=== PATIENT | female | born 1950 | race Asian ===

== ENCOUNTER 2016-10-24 09:53 | Outpatient (CLI) | payer MEDICARE ==
[2016-10-24] MEDS ORDERED: XYLOCAINE TOPICAL 4% TP ONE (11:37)
== END 2016-10-24 09:54 | disposition home or self-care (01) ==
LOC: WOUND 09:53
PROVIDERS: ATTEND Internal Medicine
DX: E11.621 Type 2 diabetes mellitus with foot ulcer (principal); L97.411 Non-pressure chronic ulcer of right heel and midfoot limited to breakdown of skin; I10 Essential (primary) hypertension; Z85.3 Personal history of malignant neoplasm of breast; Z86.73 Personal history of transient ischemic attack (TIA), and cerebral infarction without residual deficits; Z90.710 Acquired absence of both cervix and uterus
CPT/HCPCS: 11042; 11045; G0463

== ENCOUNTER 2016-10-31 09:14 | Outpatient (CLI) | payer MEDICARE ==
[2016-10-31] MEDS ORDERED: XYLOCAINE TOPICAL 4% TP ONE ×2 (09:56→10:01)
== END 2016-10-31 09:15 | disposition home or self-care (01) ==
LOC: WOUND 09:14
PROVIDERS: ATTEND Internal Medicine
DX: E11.621 Type 2 diabetes mellitus with foot ulcer (principal); L97.411 Non-pressure chronic ulcer of right heel and midfoot limited to breakdown of skin; I10 Essential (primary) hypertension; Z85.3 Personal history of malignant neoplasm of breast; Z86.73 Personal history of transient ischemic attack (TIA), and cerebral infarction without residual deficits; Z90.710 Acquired absence of both cervix and uterus

== ENCOUNTER 2016-11-07 09:12 | Outpatient (CLI) | payer MEDICARE ==
[2016-11-07] MEDS ORDERED: XYLOCAINE TOPICAL 4% TP ONE ×2 (09:36→09:40)
== END 2016-11-07 09:13 | disposition home or self-care (01) ==
LOC: WOUND 09:12
PROVIDERS: ATTEND Internal Medicine
DX: E11.621 Type 2 diabetes mellitus with foot ulcer (principal); L97.411 Non-pressure chronic ulcer of right heel and midfoot limited to breakdown of skin; I10 Essential (primary) hypertension; Z85.3 Personal history of malignant neoplasm of breast; Z86.73 Personal history of transient ischemic attack (TIA), and cerebral infarction without residual deficits; Z90.710 Acquired absence of both cervix and uterus

== ENCOUNTER 2016-11-14 10:44 | Outpatient (CLI) | payer MEDICARE ==
[2016-11-14] MEDS ORDERED: XYLOCAINE TOPICAL 4% TP ONE ×2 (11:02→11:09)
[2016-11-14] MEDS ORDERED: SILVER NITRATE TP ONE ×2 (12:24→15:38)
== END 2016-11-14 10:45 | disposition home or self-care (01) ==
LOC: WOUND 10:44
PROVIDERS: ATTEND Internal Medicine
DX: E11.621 Type 2 diabetes mellitus with foot ulcer (principal); L97.411 Non-pressure chronic ulcer of right heel and midfoot limited to breakdown of skin; I10 Essential (primary) hypertension; Z90.710 Acquired absence of both cervix and uterus; Z86.73 Personal history of transient ischemic attack (TIA), and cerebral infarction without residual deficits

== ENCOUNTER 2016-11-21 10:37 | Outpatient (CLI) | payer MEDICARE ==
[2016-11-21] MEDS ORDERED: XYLOCAINE TOPICAL 4% TP ONE (11:36)
== END 2016-11-21 10:38 | disposition home or self-care (01) ==
LOC: WOUND 10:37
PROVIDERS: ATTEND Internal Medicine
DX: E11.621 Type 2 diabetes mellitus with foot ulcer (principal); L97.411 Non-pressure chronic ulcer of right heel and midfoot limited to breakdown of skin; E11.69 Type 2 diabetes mellitus with other specified complication; M86.68 Other chronic osteomyelitis, other site; Z85.3 Personal history of malignant neoplasm of breast; Z86.73 Personal history of transient ischemic attack (TIA), and cerebral infarction without residual deficits
CPT/HCPCS: 99215; G0463

== ENCOUNTER 2016-11-21 12:44 | Inpatient (IN) | payer MEDICARE ==
[2016-11-21] MEDS ORDERED: DULCOLAX PR PRN (12:46)
[2016-11-21] MEDS ORDERED: ZOFRAN IV PRN (12:46)
[2016-11-21] MEDS ORDERED: TYLENOL PO PRN (12:46)
[2016-11-21] MEDS ORDERED: MILK OF MAGNESIA PO PRN (12:46)
[2016-11-21] MEDS ORDERED: PROVENTIL IH PRN (12:46)
[2016-11-21] MEDS ORDERED: VANCOMYCIN/NS 1 GM/250 ML 1 GM/250 ML BAG IV ONE (12:49)
--- NOTE | 2016-11-21 12:52 | History and Physical Report ---
History of Present Illness Chief complaint: Right Heel Cellulitis/Osteomyelitis History of present illness: 66 YO Female with HTN, DM, Obesity,CVA with RHP, PVD, Metabolic Syndrome directly admitted to hospitalist service at the request of Dr. Lau from the wound clinic for nonhealing Right heel ulcer, and osteomyelitis. Pt seen and evaluated upon arrival. Pt states that she has been experiencing pain in her right heel for the past 4 weeks, with worsening symptoms over the past week. Pt is unable to bear weight to Right foot without worsening pain. Pt states that the pain is currently 6-8/10. Pt was seen in wound clinic and told that she had an infection. Pt denies fever, chills, CP, Palpitations, NVD, syncope, productive cough, recent ill contacts, trauma, falls. Past History Past Medical History: diabetes, hypertension, PVD, stroke, other (Metabolic syndrome) Past Surgical History: hysterectomy, Other (Lipoma excision, ) Social history: , lives with family. denies: smoking, alcohol abuse, prescription drug abuse Family history: diabetes, hypertension Medications and Allergies Allergies Allergy/AdvReac Type Severity Reaction Status Date / Time codeine Allergy Itching Verified 10/24/16 11:37 Sulfa (Sulfonamide Allergy Swelling Verified 10/24/16 11:37 Antibiotics) Home Medications Medication Instructions Recorded Confirmed Last Taken Type Acetaminophen [Acetaminophen 8 650 mg PO Q4H PRN 11/21/16 11/21/16 Unknown History Hour] Ascorbic Acid [Vitamin C] 500 mg PO BID 11/21/16 11/21/16 11/21/16 10:00 History 500 mg Aspirin [Aspirin BABY CHEW TAB] 81 mg PO DAILY 11/21/16 11/21/16 11/21/16 10:00 History Colchicine [Colcrys] 0.6 mg PO BID 11/21/16 11/21/16 11/21/16 10:00 History Doxycycline [Vibramycin] 100 mg PO Q12HR 11/21/16 11/21/16 11/21/16 10:00 History HYDROcodone/APAP 5-325 5 - 325 mg PO Q6H 11/21/16 11/21/16 Unknown History Insulin Aspart [NovoLOG Flexpen] See Protocol SQ ACHS PRN 11/21/16 11/21/16 Unknown History Insulin Detemir [Levemir Flextouch] 15 units SQ Q12H 11/21/16 11/21/16 11/21/16 10:00 History Linaclotide [Linzess] 290 mcg PO QDAY 11/21/16 11/21/16 11/19/16 History 290 mcg Multivitamin Tab W-MINERAL 1 tab PO DAILY 11/21/16 11/21/16 11/21/16 10:00 History Oxybutynin [Ditropan] 5 mg PO DAILY 11/21/16 11/21/16 11/21/16 10:00 History Sennosides/Docusate Sodium [Senna 2 each PO DAILY 11/21/16 11/21/16 11/21/16 10: 00 History S Tablet] Simethicone [Gas Relief] 80 mg PO TID PRN 11/21/16 11/21/16 Unknown History Torsemide [Demadex] 20 mg PO 3XW 11/21/16 11/21/16 Unknown History Verapamil ER [Calan SR] 1 cap PO DAILY 11/21/16 11/21/16 11/21/16 10:00 History Active Meds: Active Medications Acetaminophen (Tylenol) 650 mg PO Q4H PRN PRN Reason: Pain MILD(1-3)/Fever >100.5/SPENCE Albuterol (Proventil) 2.5 mg IH Q4HRT PRN PRN Reason: Shortness Of Breath Bisacodyl (Dulcolax) 10 mg ID QDAY PRN PRN Reason: Constipation unrelieved by MOM Vancomycin HCl (Vancomycin/Ns 1 Gm/250 Ml) 1 gm in 250 mls @ 167.007 mls/hr IV ONCE ONE PRN Reason: Protocol Stop: 11/21/16 14:18 Magnesium Hydroxide (Milk Of Magnesia) 30 ml PO Q4H PRN PRN Reason: Constipation Ondansetron HCl (Zofran) 4 mg IV Q8H PRN PRN Reason: N/V unrelieved by Reglan Vancomycin HCl (Vancomycin Pharmacy To Dose) 1 each IV PKCONSULT CLAUDIA PRN Reason: Protocol Review of Systems Constitutional: no weight loss, no weight gain, no fever, no chills Ears, nose, mouth and throat: no ear pain, no ear discharge, no tinnitis, no decreased hearing, no nose pain, no nasal congestion, no nasal discharge Breasts: no change in shape, no swelling, no mass Cardiovascular: no chest pain, no orthopnea, no palpitations, no rapid/ irregular heart beat, no edema Respiratory: no cough, no cough with sputum, no excessive sputum, no hemoptysis , no shortness of breath, no dyspnea on exertion Gastrointestinal: no nausea, no vomiting, no diarrhea, no constipation Genitourinary Female: no dysmenorrhea, no pelvic pain, no flank pain, no menorrhagia, no urinary frequency, no stress incontinence Rectal: no pain, no incontinence, no bleeding Musculoskeletal: no neck stiffness, no neck pain Integumentary: foot/leg ulcers, no rash, no pruritis, no redness, no sores, no wounds Neurological: no transient paralysis, no paralysis, no weakness, no parathesias , no numbness, no tingling Psychiatric: no anxiety, no memory loss, no change in sleep habits, no sleep disturbances, no insomnia Endocrine: no cold intolerance, no heat intolerance, no polyphagia, no excessive thirst, no polydipsia, no polyuria, no weight change Hematologic/Lymphatic: no easy bruising, no easy bleeding Allergic/Immunologic: no urticaria, no allergic rhinitis, no wheezing Exam - Constitutional General appearance: Present: mild distress, obese - EENT Eyes: Present: PERRL ENT: hearing intact, clear oral mucosa - Neck Neck: Present: supple, normal ROM - Respiratory Respiratory effort: normal Respiratory: bilateral: CTA - Cardiovascular Heart Sounds: Present: S1 & S2. Absent: rub, click - Extremities Extremity abnormal: ulceration (Right heel ulceration, ), erythema, pulses diminished Peripheral Pulses: abnormal - Abdominal General gastrointestinal: Present: soft, non-tender, non-distended, normal bowel sounds Female genitourinary: Present: normal - Integumentary Integumentary: Present: clear, dry - Musculoskeletal Musculoskeletal: generalized weakness - Psychiatric Psychiatric: appropriate mood/affect, intact judgment & insight - Neurologic Neurologic: CNII-XII intact, focal deficits, no gait normal Results - Labs CBC & Chem 7: 11/21/16 14:31 11/21/16 14:31 Assessment and Plan - Patient Problems (1) Cellulitis of heel, right Current Visit: Yes Status: Acute Plan to address problem: IV abx, CBC, CMP, wound cultures, blood cultures, Surgery consulted for wound care, (2) Osteomyelitis of ankle or foot Current Visit: Yes Status: Acute Plan to address problem: Wound care, IV abx, CT RLE to evaluate. IVF resuscitation (3) PAD (peripheral artery disease) Current Visit: Yes Status: Acute Plan to address problem: Vascular surgery consulted for evaluation and possible angiogram with runoff, after renal function optimized. (4) Metabolic syndrome Current Visit: Yes Status: Acute Plan to address problem: Balanced diet, lipid panel, increased physical activity at discharge (5) HTN (hypertension) Current Visit: Yes Status: Acute Qualifiers: Hypertension type: H Plan to address problem: monitor BP q shift, resume home medication, (6) Diabetes Current Visit: Yes Status: Acute Qualifiers: Diabetes mellitus type: D Diabetes mellitus complication status: D Diabetes mellitus complication detail: D Diabetic retinopathy severity: D Proliferative retinopathy type: P Diabetes mellitus macular edema: D Diabetes mellitus watermaster insulin use: D Laterality: L Chronic kidney disease stage: C Plan to address problem: ADA diet, insulin accu check, hgb A1c (7) ARF (acute renal failure) Current Visit: Yes Status: Acute Qualifiers: Acute renal failure type: A Plan to address problem: IVF resuscitation, monitor uop q shift, repeat bmp, urine electrolytes and renal ultrasound if persistently elevated. (8) DVT prophylaxis Current Visit: Yes Status: Acute
[2016-11-21] MEDS ORDERED: VANCOMYCIN PHARMACY TO DOSE IV SCH (13:00)
[2016-11-21 15:25] LABS: Hemoglobin 9.6 gm/dl (10.1-14.3); Platelet Count 413 K/mm3 (140-440)
[2016-11-21 15:32] LABS: Eosinophils % (Auto) 1.4 % (0.0-4.3); Hematocrit 29.1 % (30.3-42.9); Mean Corpuscular HGB Conc 33 % (30-34); Mean Corpuscular Volume 74 fl (79-97); Red Blood Count 3.95 M/mm3 (3.65-5.03); Red Cell Distribution Width 18.7 % (13.2-15.2); White Blood Count 9.7 K/mm3 (4.5-11.0)
[2016-11-21 15:36] LABS: Albumin 3.7 g/dL (3.9-5); Albumin/Globulin Ratio 0.8 %; Bilirubin,Total 0.4 mg/dL (0.1-1.2); Calcium 9.2 mg/dL (8.4-10.2); Chloride 93.1 mmol/L (98-107); Total Protein 8.2 g/dL (6.3-8.2)
[2016-11-21 15:37] LABS: INR 1.07 (0.87-1.13); Mean Corpuscular Hemoglobin 24 pg (28-32)
[2016-11-21 15:38] LABS: Basophils % (Auto) 0.3 % (0.0-1.8)
[2016-11-21] MEDS ORDERED: VANCOMYCIN 2,000 MG in NACL 0.9% 500 ML 500 ML IV ONE ×2 (16:45→17:00)
[2016-11-21] MEDS: NORCO 5/325 PO PRN (18:49)
[2016-11-21] MEDS ORDERED: NACL 0.45% 1,000 ML IV SCH (19:00)
[2016-11-22] MEDS: NORCO 5/325 PO PRN (07:56)
[2016-11-22] MEDS ORDERED: MYLICON PO PRN (11:26)
[2016-11-22] MEDS ORDERED: INSULIN DETEMIR 15 UNIT SQ SCH (11:30)
[2016-11-22] MEDS ORDERED: LEVEMIR SUB-Q SCH (12:00)
[2016-11-22] MEDS: NOVOLOG SUB-Q SCH ×3 (12:10→22:17)
[2016-11-22] MEDS: BABY ASPIRIN PO SCH (12:14)
[2016-11-22] MEDS: LEVEMIR SUB-Q SCH ×3 (12:20→23:00)
--- NOTE | 2016-11-22 13:14 | Consultation ---
History of Present Illness - Reason for Consult Consult date: 11/22/16 Requesting physician: LYNNE SPEARS - History of Present Illness This patient is a 66-year-old -[place] female that was admitted on 11/21 due to right heel cellulitis/osteomyelitis. The patient states that in July of 2016, she was admitted to a [facility] in preparation for a pilonidal cyst removal. During that hospitalization she was bedbound, and developed a right heel decubitus ulceration. She was discharged home with home health nursing for wound care. She states one of these nurses excised the eschar from her right heel. She subsequently developed a foul odor and drainage. She is now being followed by the outpatient wound care clinic at [facility]. She was evaluated at the clinic. The Hospitalists were contacted, and arrangements were completed for the patient to be directly admitted. The wound care surgeons have been consulted. A vascular surgery consult is now requested to evaluate due to concerns of underlying arterial disease limiting the patient's ability to heal distal wounds. Past History Past Medical History: diabetes, hypertension, PVD, stroke (with residual RUE weakness), other (Metabolic syndrome, Breast Ca) Past Surgical History: hysterectomy (excision of 50lb fibroid tumor), Other ( Recent excision of pilonidal cyst, right shoulder I&D, Multiple right breast surgery due to Breast Ca, some sort of percutaneous lower ext arterial intervention by Dr Vitale at [facility] many years ago.) Social history: , lives with family. denies: smoking, alcohol abuse, prescription drug abuse Family history: cancer, diabetes, hypertension Medications and Allergies Allergies Allergy/AdvReac Type Severity Reaction Status Date / Time codeine Allergy Itching Verified 10/24/16 11:37 Sulfa (Sulfonamide Allergy Swelling Verified 10/24/16 11:37 Antibiotics) Home Medications Medication Instructions Recorded Confirmed Last Taken Type Acetaminophen [Acetaminophen 8 650 mg PO Q4H PRN 11/21/16 11/21/16 Unknown History Hour] Ascorbic Acid [Vitamin C] 500 mg PO BID 11/21/16 11/21/16 11/21/16 10:00 History 500 mg Aspirin [Aspirin BABY CHEW TAB] 81 mg PO DAILY 11/21/16 11/21/16 11/21/16 10:00 History Colchicine [Colcrys] 0.6 mg PO BID 11/21/16 11/21/16 11/21/16 10:00 History Doxycycline [Vibramycin] 100 mg PO Q12HR 11/21/16 11/21/16 11/21/16 10:00 History HYDROcodone/APAP 5-325 5 - 325 mg PO Q6H 11/21/16 11/21/16 Unknown History Insulin Aspart [NovoLOG Flexpen] See Protocol SQ ACHS PRN 11/21/16 11/21/16 Unknown History Insulin Detemir [Levemir Flextouch] 15 units SQ Q12H 11/21/16 11/21/16 11/21/16 10:00 History Linaclotide [Linzess] 290 mcg PO QDAY 11/21/16 11/21/16 11/19/16 History 290 mcg Multivitamin Tab W-MINERAL 1 tab PO DAILY 11/21/16 11/21/16 11/21/16 10:00 History Oxybutynin [Ditropan] 5 mg PO DAILY 11/21/16 11/21/16 11/21/16 10:00 History Sennosides/Docusate Sodium [Senna 2 each PO DAILY 11/21/16 11/21/16 11/21/16 10: 00 History S Tablet] Simethicone [Gas Relief] 80 mg PO TID PRN 11/21/16 11/21/16 Unknown History Torsemide [Demadex] 20 mg PO 3XW 11/21/16 11/21/16 Unknown History Verapamil ER [Calan SR] 1 cap PO DAILY 11/21/16 11/21/16 11/21/16 10:00 History Active Meds: Active Medications Acetaminophen (Tylenol) 650 mg PO Q4H PRN PRN Reason: Pain MILD(1-3)/Fever >100.5/SPENCE Acetaminophen/Hydrocodone Bitart ([place] 5/325) 1 each PO Q6H PRN PRN Reason: Pain, Moderate (4-6) Last Admin: 11/22/16 07:56 Dose: 1 each Albuterol (Proventil) 2.5 mg IH Q4HRT PRN PRN Reason: Shortness Of Breath Ascorbic Acid (Vitamin C) 500 mg PO BID CLAUDIA Aspirin (Baby Aspirin) 81 mg PO DAILY CLAUDIA Last Admin: 11/22/16 12:14 Dose: 81 mg Bisacodyl (Dulcolax) 10 mg ME QDAY PRN PRN Reason: Constipation unrelieved by MOM Colchicine (Colcrys) 0.6 mg PO BID [facility] Vancomycin HCl 1,750 mg/ (Sodium Chloride) 517.5 mls @ 333.333 mls/hr IV Q24H CLAUDIA Sodium Chloride (Nacl 0.45%) 1,000 mls @ 75 mls/hr IV DIRECT CLAUDIA Insulin Aspart (Novolog) 0 units SUB-Q ACHS CLAUDIA PRN Reason: Protocol Last Admin: 11/22/16 12:10 Dose: 6 units Insulin Detemir (Levemir) 15 units SUB-Q Q12H CLAUDIA Last Admin: 11/22/16 12:20 Dose: 15 units Magnesium Hydroxide (Milk Of Magnesia) 30 ml PO Q4H PRN PRN Reason: Constipation Ondansetron HCl (Zofran) 4 mg IV Q8H PRN PRN Reason: N/V unrelieved by Reglan Oxybutynin Chloride (Ditropan) 5 mg PO DAILY [facility] Senna/Docusate Sodium (Senokot S) 2 tab PO DAILY [facility] Simethicone (Mylicon) 80 mg PO TID PRN PRN Reason: Gas pain Vancomycin HCl (Vancomycin Pharmacy To Dose) 1 each IV PKCONSULT CLAUDIA PRN Reason: Protocol Verapamil HCl (Calan Sr) 240 mg PO DAILY [facility] Review of Systems All systems: negative Exam - Constitutional Vitals: Temp Pulse Resp BP Pulse Ox 98.8 F 70 20 150/62 97 11/22/16 08:00 11/22/16 10:00 11/22/16 08:00 11/22/16 08:00 11/22/16 08:52 General appearance: Present: obese - EENT Eyes: Present: EOM intact ENT: hearing intact - Neck Neck: Present: supple - Respiratory Respiratory effort: normal - Extremities Extremities: no ischemia, normal temperature Extremity abnormal: edema (bilat lower ext swelling, ), ulceration (Right posterior lateral heel) - Psychiatric Psychiatric: appropriate mood/affect, intact judgment & insight, cooperative - Neurologic Neurologic: no focal deficits Results - Labs CBC & Chem 7: 11/21/16 14:31 11/21/16 14:31 Labs: Abnormal lab results 11/21/16 11/21/16 11/21/16 Range/Units 14:31 14:31 18:39 Hgb 9.6 L (10.1-14.3) gm/dl Hct 29.1 L (30.3-42.9) % MCV 74 L (79-97) fl MCH 24 L (28-32) pg RDW 18.7 H (13.2-15.2) % Seg Neutrophils % 70.8 H (40.0-70.0) % Sodium 136 L (137-145) mmol/L Potassium 3.0 L (3.6-5.0) mmol/L Chloride 93.1 L (98-107) mmol/L BUN 36 H (7-17) mg/dL Creatinine 1.7 H (0.7-1.2) mg/dL Glucose 128 H (65-100) mg/dL POC Glucose 240 H (70-105) Albumin 3.7 L (3.9-5) g/dL 11/21/16 11/22/16 11/22/16 Range/Units 22:06 07:21 11:23 Hgb (10.1-14.3) gm/dl Hct (30.3-42.9) % MCV (79-97) fl MCH (28-32) pg RDW (13.2-15.2) % Seg Neutrophils % (40.0-70.0) % Sodium (137-145) mmol/L Potassium (3.6-5.0) mmol/L Chloride (98-107) mmol/L BUN (7-17) mg/dL Creatinine (0.7-1.2) mg/dL Glucose (65-100) mg/dL POC Glucose 260 H 230 H 323 H (70-105) Albumin (3.9-5) g/dL Assessment and Plan This pt was admitted via the Outpt wound care center due to a non-healing wound with concerns of infection. A vascular surgery consult has been requested to further eval. The wound has been present at least four months. The pt states this developed as a result of prolong bedrest while hospitalized in July. Despite outpt wound care the wounds have failed to improve. She does not have palpable pedal pulses to either lower ext. She has had previous intervention by Dr Vitale many years ago, but hasn't followed up recently. Will check a lower ext non-invasive arterial duplex with an GEOVANNI. Suspect she will need some sort of intervention to improve her chances of wound healing. Will make the pt npo for a possible arteriogram [place] R[place] Although, her Cr is mildly elevated at 1.7 with an est GFR of 36. She will need pre-op hydration to decrease the risk of contrast nephropathy. Consider nephrology consult in light of ARF and need for lower ext intervention (with iodinated contrast exposure). - Patient Problems (1) Atherosclerosis of [place] arteries of the extremities with ulceration Current Visit: Yes Status: Acute (2) Decubital ulcer Current Visit: Yes Status: Acute Qualifiers: Pressure ulcer location: P Pressure ulcer stage: P Laterality: L (3) Osteomyelitis of ankle or foot Current Visit: Yes Status: Acute (4) Diabetes Current Visit: Yes Status: Acute Qualifiers: Diabetes mellitus type: D Diabetes mellitus complication status: D Diabetes mellitus complication detail: D Diabetic retinopathy severity: D Proliferative retinopathy type: P Diabetes mellitus macular edema: D Diabetes mellitus usp insulin use: D Laterality: L Chronic kidney disease stage: C (5) HTN (hypertension) Current Visit: Yes Status: Acute Qualifiers: Hypertension type: H (6) History of cerebrovascular accident (CVA) with residual deficit Current Visit: Yes Status: Acute
--- NOTE | 2016-11-22 14:30 | Cat Scan Report ---
CT LOWER EXTREMITY RIGHT WITHOUT CONTRAST History: Osteomyelitis. Findings: There is diffuse nonspecific soft tissue swelling. Bony destruction is identified in the posterior lateral right calcaneus. This could represent osteomyelitis. The remaining bones are grossly intact. Osteopenia and degenerative changes are noted. No soft tissue abscess is visualized. Impression: Calcaneal osteomyelitis.
[2016-11-22] MEDS ORDERED: VANCOMYCIN 1,750 MG in NACL 0.9% 500 ML 500 ML IV SCH (16:45)
[2016-11-22] MEDS: VANCOMYCIN 1,750 MG in NACL 0.9% 500 ML 500 ML IV SCH (16:45)
[2016-11-22] MEDS ORDERED: BENADRYL IV ONE ×2 (18:14→22:30)
--- NOTE | 2016-11-22 21:33 | Progress Note ---
Assessment and Plan Assessment and plan: 66 yo obese female with metabolic syndrome, diabetes, hypertension, CVA with residual right-sided hemiparesis admitted at the request of Dr. Lau from wound clinic for nonhealing right heel ulcer with osteomyelitis, now unable to bear weight Right heel nonhealing ulcer/abscess/osteomyelitis In 07/2016 temporary bedbound and developed right heel decubitus ulcer; later a wound care nurse excised the eschar and subsequently developed foul smelling drainage; sent to the hospital from [facility] as unable to bear weight CT LE revealed calcaneal osteomyelitis Started on IV antibiotics Wound surgeon following Vascular surgery also consulted (see below for discussion) PAD History of remote vascular intervention Vascular surgery consulted for likely underlying arterial disease limiting ability to heal distal wounds Scheduled for arterial Doppler, GEOVANNI today and possible angiography tomorrow Acute renal failure or VICTORIA on CKD Likely secondary to vasomotor nephropathy Give IV fluids and monitor closely BUN/creatinine and electrolytes HTN BP controlled on verapamil JR inhibitor indicated as she is diabetic, but avoided due to renal insufficiency DM On long acting insulin along weight SSI based on Accu-Cheks Assessing insulin requirements and making adjustments as needed Old CVA On antiplatelet therapy, but not on statin; discussed with patient and no reason for this; check LFTs, lipid profile and likely start statin Obesity/Metabolic syndrome Counseled regarding importance of losing weight, lifestyle changes and increased physical activity after current acute issues resolved and able to bear weight Gout Continue colchicine DVT prophylaxis History Interval history: for LE arterial doppler, GEOVANNI today, possible angiography tomorrow unable to put weight on right foot Hospitalist Physical - Constitutional Vitals: Temp Pulse Resp BP Pulse Ox 98.8 F 70 20 174/63 99 11/22/16 20:17 11/22/16 20:17 11/22/16 20:17 11/22/16 20:17 11/22/16 20:17 General appearance: Present: no acute distress, obese - EENT Eyes: Present: PERRL, EOM intact. Absent: scleral icterus, conjunctival injection - Neck Neck: Present: supple. Absent: enlarged thyroid, masses or JVD - Respiratory Respiratory effort: normal Respiratory: bilateral: CTA, negative: rhonchi, wheezing - Cardiovascular Rhythm: regular Heart Sounds: Present: S1 & S2. Absent: systolic murmur - Extremities Extremities: no ischemia, abnormal (R foot dressing in place) - Abdominal General gastrointestinal: soft, non-tender, non-distended, normal bowel sounds - Psychiatric Psychiatric: cooperative - Neurologic Neurologic: CNII-XII intact, no focal deficits Results - Labs CBC & Chem 7: 11/21/16 14:31 11/24/16 10:00 Labs: Laboratory Last Values WBC 9.7 K/mm3 (4.5-11.0) 11/21/16 14:31 RBC 3.95 M/mm3 (3.65-5.03) 11/21/16 14:31 Hgb 9.6 gm/dl (10.1-14.3) L 11/21/16 14:31 Hct 29.1 % (30.3-42.9) L 11/21/16 14:31 MCV 74 fl (79-97) L 11/21/16 14:31 MCH 24 pg (28-32) L 11/21/16 14:31 MCHC 33 % (30-34) 11/21/16 14:31 RDW 18.7 % (13.2-15.2) H 11/21/16 14:31 Plt Count 413 K/mm3 (140-440) 11/21/16 14:31 Lymph % (Auto) 20.5 % (13.4-35.0) 11/21/16 14:31 [place] % (Auto) 7.0 % (0.0-7.3) 11/21/16 14:31 Eos % (Auto) 1.4 % (0.0-4.3) 11/21/16 14:31 Baso % (Auto) 0.3 % (0.0-1.8) 11/21/16 14:31 Lymph # 2.0 K/mm3 (1.2-5.4) 11/21/16 14:31 [place] # 0.7 K/mm3 (0.0-0.8) 11/21/16 14:31 Eos # 0.1 K/mm3 (0.0-0.4) 11/21/16 14:31 Baso # 0.0 K/mm3 (0.0-0.1) 11/21/16 14:31 Seg Neutrophils % 70.8 % (40.0-70.0) H 11/21/16 14:31 Seg Neutrophils # 6.8 K/mm3 (1.8-7.7) 11/21/16 14:31 PT 14.4 Sec. (12.2-14.9) 11/21/16 14:31 INR 1.07 (0.87-1.13) 11/21/16 14:31 Sodium 136 mmol/L (137-145) L 11/21/16 14:31 Potassium 3.0 mmol/L (3.6-5.0) L 11/21/16 14:31 Chloride 93.1 mmol/L (98-107) L 11/21/16 14:31 Carbon Dioxide 30 mmol/L (22-30) 11/21/16 14:31 Anion Gap 16 mmol/L 11/21/16 14:31 BUN 36 mg/dL (7-17) H 11/21/16 14:31 Creatinine 1.7 mg/dL (0.7-1.2) H 11/21/16 14:31 Estimated GFR 36 ml/min 11/21/16 14:31 BUN/Creatinine Ratio 21 % 11/21/16 14:31 Glucose 128 mg/dL (65-100) H 11/21/16 14:31 POC Glucose 313 (70-105) H 11/22/16 16:31 Calcium 9.2 mg/dL (8.4-10.2) 11/21/16 14:31 Total Bilirubin 0.40 mg/dL (0.1-1.2) 11/21/16 14:31 AST 11 units/L (5-40) 11/21/16 14:31 ALT 11 units/L (7-56) 11/21/16 14:31 Alkaline Phosphatase 68 units/L (35-129) 11/21/16 14:31 Total Protein 8.2 g/dL (6.3-8.2) 11/21/16 14:31 Albumin 3.7 g/dL (3.9-5) L 11/21/16 14:31 Albumin/Globulin Ratio 0.8 % 11/21/16 14:31
[2016-11-22] MEDS: COLCRYS PO SCH (22:17)
[2016-11-22] MEDS: VITAMIN C PO SCH (22:17)
[2016-11-23] MEDS: NOVOLOG SUB-Q SCH ×4 (07:15→22:56)
--- NOTE | 2016-11-23 08:01 | Vascular Lab Report ---
LOWER EXTREMITY ARTERIAL DUPLEX: REASON FOR EXAM: Peripheral arterial disease. COMMENTS ON THE RIGHT: Biphasic waveforms are seen proximally. Monophasic waveforms are seen distally. Increased flow velocity noted at mid SFA. Diffuse plaque identified throughout the vessels.. Findings are consistent with abnormal perfusion. Findings are inconsistent with the ability to heal distal wounds. COMMENTS ON THE LEFT: Biphasic waveforms are seen proximally. Monophasic waveforms are seen distally. Elevated velocity noted in the popliteal artery. Mild to moderate plaque identified throughout the vessels.. Findings are consistent with abnormal perfusion. Findings are inconsistent with the ability to heal distal wounds. IMPRESSION: RIGHT: Mid SFA stenosis. LEFT:Popliteal artery stenosis.
--- NOTE | 2016-11-23 08:02 | Vascular Lab Report ---
LOWER EXTREMITY ARTERIAL PHYSIOLOGIC STUDY: REASON FOR EXAM: Peripheral arterial disease. COMMENTS ON THE RIGHT: Ankle brachial index is 0.42. This value is abnormal. Toe brachial index is zero. This value is abnormal. Wound healing is unlikely. Pulse volume recording at the level of the ankle is abnormal. Exercise testing was not done. COMMENTS ON THE LEFT: Ankle brachial index is 0.93. This value is abnormal. Toe brachial index is 0.73. This value is normal. Wound healing is likely. Pulse volume recording at the level of the ankle is normal. Exercise testing was not done. IMPRESSION: RIGHT: Severe peripheral vascular disease LEFT:Mild peripheral vascular disease
--- NOTE | 2016-11-23 10:15 | Consultation ---
History of Present Illness - Reason for Consult Consult date: 11/23/16 Past History Past Medical History: diabetes, hypertension, PVD, stroke (with residual RUE weakness), other (Metabolic syndrome, Breast Ca) Past Surgical History: hysterectomy (excision of 50lb fibroid tumor), Other ( Recent excision of pilonidal cyst, right shoulder I&D, Multiple right breast surgery due to Breast Ca, some sort of percutaneous lower ext arterial intervention by Dr Vitale at [facility] many years ago.) Social history: , lives with family. denies: smoking, alcohol abuse, prescription drug abuse Family history: cancer, diabetes, hypertension Medications and Allergies Allergies Allergy/AdvReac Type Severity Reaction Status Date / Time codeine Allergy Itching Verified 10/24/16 11:37 Sulfa (Sulfonamide Allergy Swelling Verified 10/24/16 11:37 Antibiotics) Home Medications Medication Instructions Recorded Confirmed Last Taken Type Acetaminophen [Acetaminophen 8 650 mg PO Q4H PRN 11/21/16 11/21/16 Unknown History Hour] Ascorbic Acid [Vitamin C] 500 mg PO BID 11/21/16 11/21/16 11/21/16 10:00 History 500 mg Aspirin [Aspirin BABY CHEW TAB] 81 mg PO DAILY 11/21/16 11/21/16 11/21/16 10:00 History Colchicine [Colcrys] 0.6 mg PO BID 11/21/16 11/21/16 11/21/16 10:00 History Doxycycline [Vibramycin] 100 mg PO Q12HR 11/21/16 11/21/16 11/21/16 10:00 History HYDROcodone/APAP 5-325 5 - 325 mg PO Q6H 11/21/16 11/21/16 Unknown History Insulin Aspart [NovoLOG Flexpen] See Protocol SQ ACHS PRN 11/21/16 11/21/16 Unknown History Insulin Detemir [Levemir Flextouch] 15 units SQ Q12H 11/21/16 11/21/16 11/21/16 10:00 History Linaclotide [Linzess] 290 mcg PO QDAY 11/21/16 11/21/16 11/19/16 History 290 mcg Multivitamin Tab W-MINERAL 1 tab PO DAILY 11/21/16 11/21/16 11/21/16 10:00 History Oxybutynin [Ditropan] 5 mg PO DAILY 11/21/16 11/21/16 11/21/16 10:00 History Sennosides/Docusate Sodium [Senna 2 each PO DAILY 11/21/16 11/21/16 11/21/16 10: 00 History S Tablet] Simethicone [Gas Relief] 80 mg PO TID PRN 11/21/16 11/21/16 Unknown History Torsemide [Demadex] 20 mg PO 3XW 11/21/16 11/21/16 Unknown History Verapamil ER [Calan SR] 1 cap PO DAILY 11/21/16 11/21/16 11/21/16 10:00 History Active Meds: Active Medications Acetaminophen (Tylenol) 650 mg PO Q4H PRN PRN Reason: Pain MILD(1-3)/Fever >100.5/SPENCE Acetaminophen/Hydrocodone Bitart ([place] 5/325) 1 each PO Q6H PRN PRN Reason: Pain, Moderate (4-6) Last Admin: 11/22/16 07:56 Dose: 1 each Albuterol (Proventil) 2.5 mg IH Q4HRT PRN PRN Reason: Shortness Of Breath Ascorbic Acid (Vitamin C) 500 mg PO BID [facility] Last Admin: 11/22/16 22:17 Dose: 500 mg Aspirin (Baby Aspirin) 81 mg PO DAILY [facility] Last Admin: 11/22/16 12:14 Dose: 81 mg Bisacodyl (Dulcolax) 10 mg CA QDAY PRN PRN Reason: Constipation unrelieved by MOM Colchicine (Colcrys) 0.6 mg PO BID [facility] Last Admin: 11/22/16 22:17 Dose: 0.6 mg Vancomycin HCl 1,750 mg/ (Sodium Chloride) 517.5 mls @ 333.333 mls/hr IV Q24H [facility] Last Admin: 11/22/16 16:45 Dose: 333.333 mls/hr Sodium Chloride (Nacl 0.45%) 1,000 mls @ 75 mls/hr IV DIRECT CLAUDIA Insulin Aspart (Novolog) 0 units SUB-Q ACHS CLAUDIA PRN Reason: Protocol Last Admin: 11/23/16 07:15 Dose: Not Given Insulin Detemir (Levemir) 15 units SUB-Q Q12H [facility] Last Admin: 11/22/16 23:00 Dose: Not Given Magnesium Hydroxide (Milk Of Magnesia) 30 ml PO Q4H PRN PRN Reason: Constipation Last Admin: 11/22/16 17:54 Dose: 30 ml Ondansetron HCl (Zofran) 4 mg IV Q8H PRN PRN Reason: N/V unrelieved by Reglan Oxybutynin Chloride (Ditropan) 5 mg PO DAILY CLAUDIA Senna/Docusate Sodium (Senokot S) 2 tab PO DAILY CLAUDIA Simethicone (Mylicon) 80 mg PO TID PRN PRN Reason: Gas pain Vancomycin HCl (Vancomycin Pharmacy To Dose) 1 each IV PKCONSULT CLAUDIA PRN Reason: Protocol Verapamil HCl (Calan Sr) 240 mg PO DAILY [facility] Exam - Constitutional Vitals: Temp Pulse Resp BP Pulse Ox 98.4 F 72 16 168/70 96 11/23/16 07:12 11/23/16 07:12 11/23/16 07:12 11/23/16 07:12 11/23/16 08:26 Results - Labs CBC & Chem 7: 11/21/16 14:31 11/21/16 14:31 Labs: Abnormal lab results 11/22/16 11/22/16 11/22/16 Range/Units 11:23 16:31 22:05 POC Glucose 323 H 313 H 327 H (70-105) 11/23/16 11/23/16 11/23/16 Range/Units 05:45 05:59 07:17 POC Glucose 218 H 201 H 223 H (70-105)
[2016-11-23 11:55] LABS: Calcium 8.8 mg/dL (8.4-10.2); Chloride 100.9 mmol/L (98-107); Potassium 3.4 mmol/L (3.6-5.0)
[2016-11-23] MEDS: BABY ASPIRIN PO SCH (12:56)
[2016-11-23] MEDS: COLCRYS PO SCH ×2 (12:57→22:55)
[2016-11-23] MEDS: VITAMIN C PO SCH ×2 (12:57→22:56)
[2016-11-23] MEDS ORDERED: HEPARIN/NS 5000 UNIT/500ML(CATH LAB) 1,000 ML IR ONE (13:48)
[2016-11-23] MEDS ORDERED: ANCEF/STERILE WATER 2 GM/20 ML 2 GM/20 ML SYRINGE IV ONE (13:49)
[2016-11-23] MEDS ORDERED: XYLOCAINE 1%/ EPI 1:100,000 INFILTRATI ONE (13:49)
[2016-11-23] MEDS ORDERED: VERSED ONE (13:49)
[2016-11-23] MEDS ORDERED: SUBLIMAZE ONE (13:49)
[2016-11-23] MEDS ORDERED: NACL 0.9% 500 ML 0 ML ONE (13:51)
[2016-11-23] MEDS: HEPARIN 10,000 UNITS/10 ML ONE ×3 (14:37→16:00)
[2016-11-23] MEDS ORDERED: NACL 0.9% 500 ML 1,000 ML ONE (14:54)
[2016-11-23] MEDS ORDERED: CALAN ONE (14:54)
[2016-11-23] MEDS ORDERED: TRIDIL DRIP 50MG/250ML 50 MG/250 ML BOTTLE ONE (14:54)
--- NOTE | 2016-11-23 16:46 | Operative Report ---
Operative Report Operative Report: Procedure: 1. Ultrasound guided puncture of the left common femoral artery. 2. Distal aortography and bilateral common iliac arteriography. 3. Right external iliac, common femoral, and superficial arteriography. 4. Right popliteal arteriography 5. Right infrapopliteal and pedal arteriography. 6. Orbital atherectomy of the right superficial femoral and popliteal arteries 7. Balloon angioplasty of the right superficial femoral and popliteal arteries Date of Procedure: 11/23/2016 History/Indication: This is a 66-year-old female who presents with right heel pain and a nonhealing right heel wound. She has had vascular interventions in the past but is unsure what was done. Noninvasive studies demonstrated regions of significant stenosis in the superficial femoral artery on the right. Physician: Nguyen Peres MD Technique/Procedural Details: The patient was placed in the supine position and prepped and draped in the usual sterile fashion. A timeout was performed. Local anesthetic was administered. Under continuous ultrasound guidance, the left common femoral artery was accessed with a 21-gauge needle. Using a micropuncture technique, a 5 Israeli vascular sheath was placed. An Omni flush catheter was advanced over a Perkins wire to the aortic bifurcation. Aortography was performed. The flush catheter was used to cross the aortic bifurcation and then exchanged for a 4 Israeli vertebral catheter. There is a 4 Israeli vertebral catheter, common and superficial femoral arteriography was performed. The catheter was advanced, and popliteal arteriography was performed. Thereafter, arteriography of the infrapopliteal and pedal vessels was performed. A 65 cm, 6 Israeli pinnacle destination sheath was advanced, with the tip positioned in the common femoral artery. The Perkins wire was exchanged for a V 18 wire, and the 4 Israeli vertebral catheter was exchanged for an 018 [place] Blazer catheter. Repeat arteriography of the superficial femoral artery was performed. Predilation was performed with a 3 mm balloon. Thereafter, the [place] Blazer was used to exchange the V18 wire for a Viperwire. Over this wire, orbital atherectomy of the superficial femoral and popliteal arteries was performed with a mandeep back atherectomy device using a 2 mm solid crown. Post atherectomy angioplasty was performed with a 5 mm balloon in the superficial femoral and popliteal arteries. Repeat arteriography of the right lower extremity was performed. The sheath was removed, and hemostasis was achieved with manual pressure. Sterile dressings were placed, and the patient was transported to the recovery area without immediate complication. Discussion: The distal aorta, both common iliac arteries, and right external iliac arteries are normal in appearance. The right common femoral artery has a mild 10% non- flow-limiting stenosis. There is a mid SFA stent on the right side. There are various regions of stenosis in the right superficial femoral and popliteal artery ranging from 10% to 90%. The most significant narrowing is within the previously placed stent. There is chronic occlusion of the distal popliteal artery, with numerous collateral arteries reconstituting the anterior and posterior tibial arteries. After intervention, the right superficial femoral and popliteal arteries are completely patent. Below the knee, there are numerous additional collateral arteries seen due to improved inflow. The right posterior tibial artery is robust and patent, providing adequate supply to the right foot. Specifically, there is satisfactory vasculature seen in the region of the nonhealing wound in the right heel. I will see the patient in my office in 2 weeks. Should there be adequate improvement in appearance of her right heel wound, I will follow her in 3 months with an ultrasound. However, should her wound not demonstrate good healing, I will try to optimize her infrapopliteal vasculature as an outpatient. Specimen: None EBL: <5 cc
[2016-11-23] MEDS: CALAN SR PO SCH (17:03)
[2016-11-23] MEDS: SENOKOT S PO SCH (17:03)
[2016-11-23] MEDS: DITROPAN PO SCH (17:03)
[2016-11-23] MEDS: LEVEMIR SUB-Q SCH (17:04)
[2016-11-23] MEDS: VANCOMYCIN 1,750 MG in NACL 0.9% 500 ML 500 ML IV SCH (17:10)
--- NOTE | 2016-11-23 19:53 | Progress Note ---
Assessment and Plan Assessment and plan: 66 yo obese female with metabolic syndrome, diabetes, hypertension, CVA with residual right-sided hemiparesis admitted at the request of Dr. Lau from wound clinic for nonhealing right heel ulcer with osteomyelitis, now unable to bear weight Right heel nonhealing ulcer/abscess/osteomyelitis In 07/2016 temporary bedbound and developed right heel decubitus ulcer; later a wound care nurse excised the eschar and subsequently developed foul smelling drainage; sent to the hospital from [facility] as unable to bear weight CT LE revealed calcaneal osteomyelitis Started on IV antibiotics Wound surgeon following Vascular surgery also consulted (see below for discussion) PAD History of remote vascular intervention Vascular surgery consulted for likely underlying arterial disease limiting ability to heal distal wounds Arterial Doppler revealed right mid SFA stenosis and left popliteal artery stenosis GEOVANNI revealed right severe peripheral vascular disease and left mild vascular disease Underwent angiography right valuing angioplasty of the right superficial femoral and popliteal arteries Acute renal failure or VICTORIA on CKD Likely secondary to vasomotor nephropathy Improving with IV fluids Continue hydration and monitor closely BUN/creatinine and electrolytes HTN BP controlled on verapamil JR inhibitor indicated as she is diabetic, but avoided due to renal insufficiency DM On long acting insulin along weight SSI based on Accu-Cheks Assessing insulin requirements and making adjustments as needed Old CVA On antiplatelet therapy, but not on statin; discussed with patient and no reason for this; check LFTs, lipid profile and likely start statin Obesity/Metabolic syndrome Counseled regarding importance of losing weight, lifestyle changes and increased physical activity after current acute issues resolved and able to bear weight Gout Continue colchicine DVT prophylaxis History Interval history: s/pb angiography and revascularization Hospitalist Physical - Constitutional Vitals: Temp Pulse Resp BP Pulse Ox 98.9 F 70 18 179/71 97 11/23/16 18:24 11/23/16 18:24 11/23/16 18:24 11/23/16 18:24 11/23/16 18:24 General appearance: Present: no acute distress, obese - EENT Eyes: Present: PERRL, EOM intact. Absent: scleral icterus, conjunctival injection - Neck Neck: Present: supple, normal ROM. Absent: masses or JVD - Respiratory Respiratory effort: normal Respiratory: bilateral: CTA, negative: rhonchi, wheezing - Cardiovascular Rhythm: regular Heart Sounds: Present: S1 & S2. Absent: systolic murmur - Extremities Extremities: no ischemia, abnormal (right foot dressing in place) Extremity abnormal: pulses diminished - Abdominal General gastrointestinal: soft, non-tender, non-distended, normal bowel sounds - Psychiatric Psychiatric: cooperative - Neurologic Neurologic: CNII-XII intact, no focal deficits Results - Labs CBC & Chem 7: 11/21/16 14:31 11/24/16 10:00 Labs: Laboratory Last Values WBC 9.7 K/mm3 (4.5-11.0) 11/21/16 14:31 RBC 3.95 M/mm3 (3.65-5.03) 11/21/16 14:31 Hgb 9.6 gm/dl (10.1-14.3) L 11/21/16 14:31 Hct 29.1 % (30.3-42.9) L 11/21/16 14:31 MCV 74 fl (79-97) L 11/21/16 14:31 MCH 24 pg (28-32) L 11/21/16 14:31 MCHC 33 % (30-34) 11/21/16 14:31 RDW 18.7 % (13.2-15.2) H 11/21/16 14:31 Plt Count 413 K/mm3 (140-440) 11/21/16 14:31 Lymph % (Auto) 20.5 % (13.4-35.0) 11/21/16 14:31 [place] % (Auto) 7.0 % (0.0-7.3) 11/21/16 14:31 Eos % (Auto) 1.4 % (0.0-4.3) 11/21/16 14:31 Baso % (Auto) 0.3 % (0.0-1.8) 11/21/16 14:31 Lymph # 2.0 K/mm3 (1.2-5.4) 11/21/16 14:31 [place] # 0.7 K/mm3 (0.0-0.8) 11/21/16 14:31 Eos # 0.1 K/mm3 (0.0-0.4) 11/21/16 14:31 Baso # 0.0 K/mm3 (0.0-0.1) 11/21/16 14:31 Seg Neutrophils % 70.8 % (40.0-70.0) H 11/21/16 14:31 Seg Neutrophils # 6.8 K/mm3 (1.8-7.7) 11/21/16 14:31 PT 14.4 Sec. (12.2-14.9) 11/21/16 14:31 INR 1.07 (0.87-1.13) 11/21/16 14:31 Sodium 140 mmol/L (137-145) 11/23/16 10:38 Potassium 3.4 mmol/L (3.6-5.0) L 11/23/16 10:38 Chloride 100.9 mmol/L (98-107) 11/23/16 10:38 Carbon Dioxide 27 mmol/L (22-30) 11/23/16 10:38 Anion Gap 16 mmol/L 11/23/16 10:38 BUN 23 mg/dL (7-17) H 11/23/16 10:38 Creatinine 1.3 mg/dL (0.7-1.2) H 11/23/16 10:38 Estimated GFR 50 ml/min 11/23/16 10:38 BUN/Creatinine Ratio 18 % 11/23/16 10:38 Glucose 186 mg/dL (65-100) H 11/23/16 10:38 POC Glucose 214 (70-105) H 11/23/16 16:52 Calcium 8.8 mg/dL (8.4-10.2) 11/23/16 10:38 Total Bilirubin 0.40 mg/dL (0.1-1.2) 11/21/16 14:31 AST 11 units/L (5-40) 11/21/16 14:31 ALT 11 units/L (7-56) 11/21/16 14:31 Alkaline Phosphatase 68 units/L (35-129) 11/21/16 14:31 Total Protein 8.2 g/dL (6.3-8.2) 11/21/16 14:31 Albumin 3.7 g/dL (3.9-5) L 11/21/16 14:31 Albumin/Globulin Ratio 0.8 % 11/21/16 14:31
[2016-11-23] MEDS: PLAVIX PO SCH (22:55)
[2016-11-24] MEDS: PLAVIX PO SCH (09:20)
[2016-11-24] MEDS: SENOKOT S PO SCH (09:20)
[2016-11-24] MEDS: COLCRYS PO SCH (09:20)
[2016-11-24] MEDS: DITROPAN PO SCH (09:20)
[2016-11-24] MEDS: VITAMIN C PO SCH (09:20)
[2016-11-24] MEDS: BABY ASPIRIN PO SCH (09:20)
[2016-11-24] MEDS: CALAN SR PO SCH (09:20)
[2016-11-24] MEDS: NOVOLOG SUB-Q SCH ×5 (09:21→22:10)
--- NOTE | 2016-11-24 10:05 | Event Note ---
Date: 11/24/16 66 F with multiple medical problems and right heel gangrene. Patient had revascularization of the femoral system, but still has a popliteal artery occlusion and all proximal tibial arteries are occluded. Although this may be treated with a fem-distal bypass, she is morbidly obese and not an optimal surgical candidate. Given her stroke, longterm patency should not be a priority and endovascular treatment is probably best for her. She will require an additional revascularization of her DOCUMENT CLERK, SEKOU, and popliteal artery prior to any surgical debridements unless the eschar transitions from dry to wet. Renal function is an issues and will need to be monitored. Will plan for additional revascularization as an outpatient to limit IV contrast exposure. If situation, may need second revascularization during this admission. If possible, recommend not performing any debridements until revascularization complete.
[2016-11-24 10:53] LABS: Anion Gap 16 mmol/L; BUN/Creatinine Ratio 16; Blood Urea Nitrogen 18 mg/dL (7-17); Calcium 8.6 mg/dL (8.4-10.2); Carbon Dioxide 26 mmol/L (22-30); Chloride 99.4 mmol/L (98-107); Glucose 251 mg/dL (65-100); Potassium 3.5 mmol/L (3.6-5.0); Sodium 138 mmol/L (137-145)
[2016-11-24] MEDS ORDERED: ANCEF/STERILE WATER 2 GM/20 ML 2 GM/20 ML SYRINGE IV NR (11:00)
[2016-11-24] MEDS: LEVEMIR SUB-Q SCH ×3 (12:10→22:10)
--- NOTE | 2016-11-24 14:03 | Query- Renal Failure ---
Paco Clark____Miguelito Date:___11/24/2016 Hot Tar Roofer/LAURA:__Katja Phone#:___[phone] Exercise your independent professional judgment when responding to query. Questions asked do not imply a particular answer is desired or expected. We greatly appreciate your clarification on this issue. Clinical Documentation States: 66 Year old female was admitted on 11/21/2016 for nonhealing right heel ulcer with osteomyelitis, now unable to bear weight. The Hospitalist progress note on 11/23/2016 states "Acute renal failure or VICTORIA on CKD." Clinical Findings Show: 11/21 11/23 11/24 Creatinine 1.7 1.3 1.1 Please clarify if you mean: Acute Renal Failure with or due to: [ ] Tubular Necrosis [ ] Medullary Necrosis [ ] Vasomotor Nephropathy [ ] Shock Kidney [ ] Tubular Nephrosis [ ] Renal Tubular Stasis [ ] Cortical Necrosis [ ] Acute Renal Failure (unspecified) [ ] Lower Tubular Nephrosis [ ] Other: [ ] Not Applicable Present on Admission: [ ] Yes (Y) [ ] Clinically undeterminable (W) [ ] No (N) Please also document response in your Progress Notes and/or Discharge Summary and indicate if the condition was present on admission. MTDD
[2016-11-24] MEDS: NORCO 5/325 PO PRN (18:14)
[2016-11-24] MEDS: VANCOMYCIN 1,750 MG in NACL 0.9% 500 ML 500 ML IV SCH (18:16)
[2016-11-24] MEDS ORDERED: BENADRYL ONE (18:24)
[2016-11-24] MEDS: BENADRYL IV PRN (18:35)
--- NOTE | 2016-11-24 19:44 | Progress Note ---
Assessment and Plan Assessment and plan: 66 yo obese female with metabolic syndrome, diabetes, hypertension, CVA with residual right-sided hemiparesis admitted at the request of Dr. Lau from wound clinic for nonhealing right heel ulcer with osteomyelitis, now unable to bear weight Right heel nonhealing ulcer/abscess/osteomyelitis In 07/2016 temporary bedbound and developed right heel decubitus ulcer; later a wound care nurse excised the eschar and subsequently developed foul smelling drainage; sent to the hospital from [facility] as unable to bear weight CT LE revealed calcaneal osteomyelitis Continue IV antibiotics Wound surgeon following Vascular surgery also consulted (see below for discussion) PAD History of remote vascular intervention Vascular surgery consulted for likely underlying arterial disease limiting ability to heal distal wounds Arterial Doppler revealed right mid SFA stenosis and left popliteal artery stenosis GEOVANNI revealed right severe peripheral vascular disease and left mild vascular disease Underwent angiography and right balloon angioplasty of the right superficial femoral and popliteal arteries Needs additional vascular procedure and vascular surgery recommended no surgical debridement unless the eschar transitions from dry to wet Acute renal failure or VICTORIA on CKD Likely secondary to vasomotor nephropathy Received IV fluids and creatinine back to normal limits Continue to closely monitor BUN/creatinine and electrolytes HTN BP controlled on verapamil JR inhibitor indicated as she is diabetic, but avoided due to renal insufficiency DM On long acting insulin along with SSI based on Accu-Cheks BS elevated, will increase Levemir dose Assessing insulin requirements and making further adjustments as good diabetes control is imperative Old CVA With residual right-sided weakness On antiplatelet therapy, but not on statin; discussed with patient and no reason for this; check LFTs, lipid profile and likely start statin Obesity/Metabolic syndrome Counseled regarding importance of losing weight, lifestyle changes and increased physical activity after foot wound healed and able to bear weight Gout Continue colchicine DVT prophylaxis History Interval history: s/p angiography and revascularization 11/23; doing well, no complaints Hospitalist Physical - Constitutional Vitals: Temp Pulse Resp BP Pulse Ox 99 F 75 20 136/53 98 11/24/16 14:00 11/24/16 14:00 11/24/16 14:00 11/24/16 14:00 11/24/16 14:00 General appearance: Present: no acute distress, obese - EENT Eyes: Present: PERRL, EOM intact - Neck Neck: Present: supple, normal ROM. Absent: masses or JVD - Respiratory Respiratory effort: normal Respiratory: bilateral: CTA, negative: rhonchi, wheezing - Cardiovascular Rhythm: regular Heart Sounds: Present: S1 & S2. Absent: systolic murmur - Extremities Extremities: no ischemia Extremity abnormal: pulses diminished, other (right foot dressing in place) - Abdominal General gastrointestinal: soft, non-tender, non-distended, normal bowel sounds - Psychiatric Psychiatric: cooperative - Neurologic Neurologic: CNII-XII intact, no focal deficits Results - Labs CBC & Chem 7: 11/21/16 14:31 11/24/16 10:00 Labs: Laboratory Last Values WBC 9.7 K/mm3 (4.5-11.0) 11/21/16 14:31 RBC 3.95 M/mm3 (3.65-5.03) 11/21/16 14:31 Hgb 9.6 gm/dl (10.1-14.3) L 11/21/16 14:31 Hct 29.1 % (30.3-42.9) L 11/21/16 14:31 MCV 74 fl (79-97) L 11/21/16 14:31 MCH 24 pg (28-32) L 11/21/16 14:31 MCHC 33 % (30-34) 11/21/16 14:31 RDW 18.7 % (13.2-15.2) H 11/21/16 14:31 Plt Count 413 K/mm3 (140-440) 11/21/16 14:31 Lymph % (Auto) 20.5 % (13.4-35.0) 11/21/16 14:31 [place] % (Auto) 7.0 % (0.0-7.3) 11/21/16 14:31 Eos % (Auto) 1.4 % (0.0-4.3) 11/21/16 14:31 Baso % (Auto) 0.3 % (0.0-1.8) 11/21/16 14:31 Lymph # 2.0 K/mm3 (1.2-5.4) 11/21/16 14:31 [place] # 0.7 K/mm3 (0.0-0.8) 11/21/16 14:31 Eos # 0.1 K/mm3 (0.0-0.4) 11/21/16 14:31 Baso # 0.0 K/mm3 (0.0-0.1) 11/21/16 14:31 Seg Neutrophils % 70.8 % (40.0-70.0) H 11/21/16 14:31 Seg Neutrophils # 6.8 K/mm3 (1.8-7.7) 11/21/16 14:31 PT 14.4 Sec. (12.2-14.9) 11/21/16 14:31 INR 1.07 (0.87-1.13) 11/21/16 14:31 Sodium 138 mmol/L (137-145) 11/24/16 10:00 Potassium 3.5 mmol/L (3.6-5.0) L 11/24/16 10:00 Chloride 99.4 mmol/L (98-107) 11/24/16 10:00 Carbon Dioxide 26 mmol/L (22-30) 11/24/16 10:00 Anion Gap 16 mmol/L 11/24/16 10:00 BUN 18 mg/dL (7-17) H 11/24/16 10:00 Creatinine 1.1 mg/dL (0.7-1.2) 11/24/16 10:00 Estimated GFR > 60 ml/min 11/24/16 10:00 BUN/Creatinine Ratio 16 % 11/24/16 10:00 Glucose 251 mg/dL (65-100) H 11/24/16 10:00 POC Glucose 215 (70-105) H 11/24/16 16:20 Calcium 8.6 mg/dL (8.4-10.2) 11/24/16 10:00 Total Bilirubin 0.40 mg/dL (0.1-1.2) 11/21/16 14:31 AST 11 units/L (5-40) 11/21/16 14:31 ALT 11 units/L (7-56) 11/21/16 14:31 Alkaline Phosphatase 68 units/L (35-129) 11/21/16 14:31 Total Protein 8.2 g/dL (6.3-8.2) 11/21/16 14:31 Albumin 3.7 g/dL (3.9-5) L 11/21/16 14:31 Albumin/Globulin Ratio 0.8 % 11/21/16 14:31
[2016-11-24] MEDS: ZOSYN/NS 3.375GM/50ML 3.375 GM/50 ML BAG IV SCH (22:00)
[2016-11-25] MEDS: VITAMIN C PO SCH ×3 (00:02→21:39)
[2016-11-25] MEDS: COLCRYS PO SCH ×3 (04:20→21:39)
[2016-11-25] MEDS: NOVOLOG SUB-Q SCH ×3 (08:37→17:48)
[2016-11-25] MEDS: PLAVIX PO SCH (09:11)
[2016-11-25] MEDS: CALAN SR PO SCH (09:12)
[2016-11-25] MEDS: BABY ASPIRIN PO SCH (09:12)
[2016-11-25] MEDS: SENOKOT S PO SCH (09:12)
[2016-11-25] MEDS: DITROPAN PO SCH (09:12)
--- NOTE | 2016-11-25 09:35 | Progress Note ---
Assessment and Plan Assessment and plan: 66 yo obese female with metabolic syndrome, diabetes, hypertension, CVA with residual right-sided hemiparesis admitted at the request of Dr. Lau from wound clinic for nonhealing right heel ulcer with osteomyelitis, now unable to bear weight Right heel nonhealing ulcer/abscess/osteomyelitis In 07/2016 temporary bedbound and developed right heel decubitus ulcer; later a wound care nurse excised the eschar and subsequently developed foul smelling drainage; sent to the hospital from [facility] as unable to bear weight CT LE revealed calcaneal osteomyelitis Continue IV antibiotics Wound surgeon following Vascular surgery also consulted (see below for discussion) PAD History of remote vascular intervention Vascular Surgery consulted for likely underlying arterial disease limiting ability to heal distal wounds Arterial Doppler revealed right mid SFA stenosis and left popliteal artery stenosis GEOVANNI revealed right severe peripheral vascular disease and left mild vascular disease Underwent angiography and right balloon angioplasty of the right superficial femoral and popliteal arteries Needs additional vascular procedure and Vascular Surgery recommended no surgical debridement unless the eschar transitions from dry to wet Discussed with Vascular Surgery and given her current condition and home situation, it will be in her benefit to have both, the revascularization and the surgical debridement, while hospitalized; planning for intervention on Monday11/28/16 Vascular Surgery management greatly appreciated Acute renal failure or VICTORIA on CKD Likely secondary to vasomotor nephropathy Received IV fluids and creatinine back to normal limits Continue to closely monitor BUN/creatinine and electrolytes HTN BP controlled on verapamil JR inhibitor indicated as she is diabetic, but avoided due to renal insufficiency DM On long acting insulin along with SSI based on Accu-Cheks Levemir dose increased BS better controlled, but at goal yet Check A1C Assessing insulin requirements and making further adjustments as good diabetes control is imperative Old CVA With residual right-sided weakness On antiplatelet therapy, but not on statin; discussed with patient and no reason for this; LFTs wnl, check lipid profile and likely start statin Obesity/Metabolic syndrome Counseled regarding importance of losing weight, lifestyle changes and increased physical activity after foot wound healed and able to bear weight Gout Continue colchicine DVT prophylaxis History Interval history: s/p angiography and revascularization 11/23; doing well, no complaints Hospitalist Physical - Constitutional Vitals: Temp Pulse Resp BP Pulse Ox 98.3 F 72 18 153/66 99 11/25/16 08:00 11/25/16 09:12 11/25/16 08:00 11/25/16 09:12 11/25/16 08:00 General appearance: Present: no acute distress, obese - EENT Eyes: Present: PERRL, EOM intact - Neck Neck: Present: supple, normal ROM. Absent: masses or JVD - Respiratory Respiratory effort: normal Respiratory: bilateral: CTA, negative: rhonchi, wheezing - Cardiovascular Rhythm: regular Heart Sounds: Present: S1 & S2. Absent: systolic murmur - Extremities Extremities: no ischemia Extremity abnormal: pulses diminished, other (right foot dressing in place) - Abdominal General gastrointestinal: soft, non-tender, non-distended, normal bowel sounds - Psychiatric Psychiatric: cooperative - Neurologic Neurologic: CNII-XII intact, no focal deficits Results - Labs CBC & Chem 7: 11/21/16 14:31 11/24/16 10:00 Labs: Laboratory Last Values WBC 9.7 K/mm3 (4.5-11.0) 11/21/16 14:31 RBC 3.95 M/mm3 (3.65-5.03) 11/21/16 14:31 Hgb 9.6 gm/dl (10.1-14.3) L 11/21/16 14:31 Hct 29.1 % (30.3-42.9) L 11/21/16 14:31 MCV 74 fl (79-97) L 11/21/16 14:31 MCH 24 pg (28-32) L 11/21/16 14:31 MCHC 33 % (30-34) 11/21/16 14:31 RDW 18.7 % (13.2-15.2) H 11/21/16 14:31 Plt Count 413 K/mm3 (140-440) 11/21/16 14:31 Lymph % (Auto) 20.5 % (13.4-35.0) 11/21/16 14:31 [place] % (Auto) 7.0 % (0.0-7.3) 11/21/16 14:31 Eos % (Auto) 1.4 % (0.0-4.3) 11/21/16 14:31 Baso % (Auto) 0.3 % (0.0-1.8) 11/21/16 14:31 Lymph # 2.0 K/mm3 (1.2-5.4) 11/21/16 14:31 [place] # 0.7 K/mm3 (0.0-0.8) 11/21/16 14:31 Eos # 0.1 K/mm3 (0.0-0.4) 11/21/16 14:31 Baso # 0.0 K/mm3 (0.0-0.1) 11/21/16 14:31 Seg Neutrophils % 70.8 % (40.0-70.0) H 11/21/16 14:31 Seg Neutrophils # 6.8 K/mm3 (1.8-7.7) 11/21/16 14:31 PT 14.4 Sec. (12.2-14.9) 11/21/16 14:31 INR 1.07 (0.87-1.13) 11/21/16 14:31 Sodium 138 mmol/L (137-145) 11/24/16 10:00 Potassium 3.5 mmol/L (3.6-5.0) L 11/24/16 10:00 Chloride 99.4 mmol/L (98-107) 11/24/16 10:00 Carbon Dioxide 26 mmol/L (22-30) 11/24/16 10:00 Anion Gap 16 mmol/L 11/24/16 10:00 BUN 18 mg/dL (7-17) H 11/24/16 10:00 Creatinine 1.1 mg/dL (0.7-1.2) 11/24/16 10:00 Estimated GFR > 60 ml/min 11/24/16 10:00 BUN/Creatinine Ratio 16 % 11/24/16 10:00 Glucose 251 mg/dL (65-100) H 11/24/16 10:00 POC Glucose 138 (70-105) H 11/25/16 07:45 Calcium 8.6 mg/dL (8.4-10.2) 11/24/16 10:00 Total Bilirubin 0.40 mg/dL (0.1-1.2) 11/21/16 14:31 AST 11 units/L (5-40) 11/21/16 14:31 ALT 11 units/L (7-56) 11/21/16 14:31 Alkaline Phosphatase 68 units/L (35-129) 11/21/16 14:31 Total Protein 8.2 g/dL (6.3-8.2) 11/21/16 14:31 Albumin 3.7 g/dL (3.9-5) L 11/21/16 14:31 Albumin/Globulin Ratio 0.8 % 11/21/16 14:31
[2016-11-25] MEDS: LEVEMIR SUB-Q SCH ×2 (12:21→21:41)
--- NOTE | 2016-11-25 13:22 | Progress Note ---
Assessment and Plan Pt presented with ulceration to the right heel, and ARF. Pt's RLE showed monophasic bloodflow. She is s/p revascularization to her R SFA, but has tibial artery disease. She will need additional intervention to improve her chances of distal wound healing. Post-operatively her Cr has improved. Contacted by the hospitalist, who discussed functional limitations of the pt, and she requested we intervene prior to d/c. Discussed with the pt who has reluctantly agreed. Will schedule for early next week as the irrigation laborer schedule will allow. - Patient Problems (1) Atherosclerosis of [place] arteries of the extremities with ulceration Current Visit: Yes Status: Acute (2) Decubital ulcer Current Visit: Yes Status: Acute Qualifiers: Pressure ulcer location: P Pressure ulcer stage: P Laterality: L (3) Osteomyelitis of ankle or foot Current Visit: Yes Status: Acute (4) Diabetes Current Visit: Yes Status: Acute Qualifiers: Diabetes mellitus type: D Diabetes mellitus complication status: D Diabetes mellitus complication detail: D Diabetic retinopathy severity: D Proliferative retinopathy type: P Diabetes mellitus macular edema: D Diabetes mellitus long-term insulin use: D Laterality: L Chronic kidney disease stage: C (5) HTN (hypertension) Current Visit: Yes Status: Acute Qualifiers: Hypertension type: H (6) History of cerebrovascular accident (CVA) with residual deficit Current Visit: Yes Status: Acute Subjective Date of service: 11/25/16 Interval history: Pt awake, pt very frustrated with her nursing care. Denies new issue from her leg or post procedure. Objective - Constitutional Vitals: Vital Signs - 12hr 11/25/16 11/25/16 11/25/16 05:29 08:00 09:12 Temperature 97.8 F 98.3 F Pulse Rate 78 72 72 Respiratory 20 18 Rate Blood Pressure 153/66 Blood Pressure 147/68 153/66 [Left] O2 Sat by Pulse 100 99 Oximetry General appearance: Present: no acute distress - EENT Eyes: EOM intact ENT: hearing intact - Respiratory Respiratory effort: normal Extremities: abnormal (red rash to the rue medial elbow. This appears to be a yeast infection.) Extremity abnormal: ulceration (RLE wounds bandaged.) - Neurologic Neurologic: no focal deficits - Psychiatric Psychiatric: appropriate mood/affect, intact judgment & insight, cooperative - Labs CBC & Chem 7: 11/21/16 14:31 11/24/16 10:00 Labs: Abnormal lab results 11/24/16 11/24/16 11/25/16 Range/Units 16:20 21:59 07:45 POC Glucose 215 H 183 H 138 H (70-105) 11/25/16 Range/Units 12:15 POC Glucose 215 H (70-105)
[2016-11-25] MEDS: LOTRIMIN TP SCH ×2 (16:24→21:24)
[2016-11-25] MEDS: ZOSYN/NS 3.375GM/50ML 3.375 GM/50 ML BAG IV SCH ×2 (16:24→16:26)
[2016-11-25] MEDS: HEPARIN SUB-Q SCH ×2 (16:25→21:40)
[2016-11-25] MEDS: NORCO 5/325 PO PRN (17:54)
[2016-11-25] MEDS: VANCOMYCIN 1,750 MG in NACL 0.9% 500 ML 500 ML IV SCH (18:45)
[2016-11-25] MEDS ORDERED: VANCOMYCIN 1,500 MG in NACL 0.9% 500 ML 500 ML IV SCH (19:00)
[2016-11-25] MEDS: BENADRYL IV PRN (21:18)
[2016-11-26] MEDS: NOVOLOG SUB-Q SCH ×5 (01:33→22:37)
[2016-11-26 04:46] LABS: Basophils % (Auto) 0.6 % (0.0-1.8); Eosinophils % (Auto) 4.9 % (0.0-4.3); Hematocrit 28.6 % (30.3-42.9); Hemoglobin 9.5 gm/dl (10.1-14.3); Mean Corpuscular HGB Conc 33 % (30-34); Mean Corpuscular Volume 74 fl (79-97); Platelet Count 418 K/mm3 (140-440); Red Blood Count 3.87 M/mm3 (3.65-5.03); Red Cell Distribution Width 18.3 % (13.2-15.2); White Blood Count 7.4 K/mm3 (4.5-11.0)
[2016-11-26 05:03] LABS: Mean Corpuscular Hemoglobin 24 pg (28-32)
[2016-11-26 05:04] LABS: Calcium 8.6 mg/dL (8.4-10.2); Chloride 100.7 mmol/L (98-107); Potassium 3.9 mmol/L (3.6-5.0)
[2016-11-26] MEDS: LOTRIMIN TP SCH ×2 (09:27→21:06)
[2016-11-26] MEDS: COLCRYS PO SCH ×2 (09:28→21:06)
[2016-11-26] MEDS: PLAVIX PO SCH (09:28)
[2016-11-26] MEDS: SENOKOT S PO SCH (09:29)
[2016-11-26] MEDS: VITAMIN C PO SCH ×2 (09:29→21:06)
[2016-11-26] MEDS: CALAN SR PO SCH (09:29)
[2016-11-26] MEDS: BABY ASPIRIN PO SCH (09:29)
--- NOTE | 2016-11-26 09:35 | Progress Note ---
Assessment and Plan Assessment and plan: 66 yo obese female with metabolic syndrome, diabetes, hypertension, CVA with residual right-sided hemiparesis admitted at the request of Dr. Lau from wound clinic for nonhealing right heel ulcer with osteomyelitis, now unable to bear weight Right heel nonhealing ulcer/abscess/osteomyelitis In 07/2016 temporary bedbound and developed right heel decubitus ulcer; later a wound care nurse excised the eschar and subsequently developed foul smelling drainage; sent to the hospital from [facility] as unable to bear weight CT LE revealed calcaneal osteomyelitis Continue IV antibiotics Wound surgeon following Vascular surgery also consulted (see below for discussion) PAD History of remote vascular intervention Vascular Surgery consulted for likely underlying arterial disease limiting ability to heal distal wounds Arterial Doppler revealed right mid SFA stenosis and left popliteal artery stenosis GEOVANNI revealed right severe peripheral vascular disease and left mild vascular disease Underwent angiography and right balloon angioplasty of the right superficial femoral Needs additional vascular procedure (revascularization of the tibial artery) and Vascular Surgery recommended no surgical debridement unless the eschar transitions from dry to wet Discussed with Vascular Surgery and given her current condition and home situation, it will be in her benefit to have the procedure while hospitalized; planning for intervention on Monday11/28/16 Vascular Surgery management greatly appreciated Acute renal failure or VICTORIA on CKD Likely secondary to vasomotor nephropathy Received IV fluids and creatinine back to normal limits 11/25 Trended up today, ? vancomycin toxicity; pharmacy consulted for dosing Continue IV fluids and monitor very closely HTN BP controlled on verapamil JR inhibitor indicated as she is diabetic, but avoided due to renal insufficiency DM On long acting insulin along with SSI based on Accu-Cheks Levemir dose increased BS better controlled, but not at goal yet Check A1C Assessing insulin requirements and making further adjustments as good diabetes control is imperative Old CVA With residual right-sided weakness On antiplatelet therapy, but not on statin; discussed with patient and no reason for this; LFTs wnl, total cholesterol/LDL wnl, but TG elevated; consider starting therapy at d/c Obesity/Metabolic syndrome Counseled regarding importance of losing weight, lifestyle changes and increased physical activity after foot wound healed and able to bear weight Gout Continue colchicine DVT prophylaxis History Interval history: s/p angiography and R SFA revascularization 11/23; scheduled for additional vascular procedure on Tuesday 11/28 ; doing well; Hospitalist Physical - Constitutional Vitals: Temp Pulse Resp BP Pulse Ox 97.9 F 69 18 140/61 100 11/26/16 05:32 11/26/16 05:32 11/26/16 05:32 11/26/16 05:32 11/26/16 05:32 General appearance: Present: no acute distress, obese - EENT Eyes: Present: PERRL, EOM intact. Absent: scleral icterus, conjunctival injection - Neck Neck: Present: supple, normal ROM. Absent: masses or JVD - Respiratory Respiratory effort: normal Respiratory: bilateral: CTA, negative: rhonchi, wheezing - Cardiovascular Rhythm: regular Heart Sounds: Present: S1 & S2. Absent: systolic murmur - Extremities Extremities: no ischemia Extremity abnormal: pulses diminished, other (R foot dressing in place) - Abdominal General gastrointestinal: soft, non-tender, non-distended, normal bowel sounds - Neurologic Neurologic: other (right-sided weakness) Results - Labs CBC & Chem 7: 11/26/16 04:07 11/26/16 04:07 Labs: Laboratory Last Values WBC 7.4 K/mm3 (4.5-11.0) 11/26/16 04:07 RBC 3.87 M/mm3 (3.65-5.03) 11/26/16 04:07 Hgb 9.5 gm/dl (10.1-14.3) L 11/26/16 04:07 Hct 28.6 % (30.3-42.9) L 11/26/16 04:07 MCV 74 fl (79-97) L 11/26/16 04:07 MCH 24 pg (28-32) L 11/26/16 04:07 MCHC 33 % (30-34) 11/26/16 04:07 RDW 18.3 % (13.2-15.2) H 11/26/16 04:07 Plt Count 418 K/mm3 (140-440) 11/26/16 04:07 Lymph % (Auto) 26.0 % (13.4-35.0) 11/26/16 04:07 [place] % (Auto) 6.2 % (0.0-7.3) 11/26/16 04:07 Eos % (Auto) 4.9 % (0.0-4.3) H 11/26/16 04:07 Baso % (Auto) 0.6 % (0.0-1.8) 11/26/16 04:07 Lymph # 1.9 K/mm3 (1.2-5.4) 11/26/16 04:07 [place] # 0.5 K/mm3 (0.0-0.8) 11/26/16 04:07 Eos # 0.4 K/mm3 (0.0-0.4) 11/26/16 04:07 Baso # 0.0 K/mm3 (0.0-0.1) 11/26/16 04:07 Seg Neutrophils % 62.3 % (40.0-70.0) 11/26/16 04:07 Seg Neutrophils # 4.6 K/mm3 (1.8-7.7) 11/26/16 04:07 PT 14.4 Sec. (12.2-14.9) 11/21/16 14:31 INR 1.07 (0.87-1.13) 11/21/16 14:31 Sodium 139 mmol/L (137-145) 11/26/16 04:07 Potassium 3.9 mmol/L (3.6-5.0) 11/26/16 04:07 Chloride 100.7 mmol/L (98-107) 11/26/16 04:07 Carbon Dioxide 26 mmol/L (22-30) 11/26/16 04:07 Anion Gap 16 mmol/L 11/26/16 04:07 BUN 20 mg/dL (7-17) H 11/26/16 04:07 Creatinine 1.3 mg/dL (0.7-1.2) H 11/26/16 04:07 Estimated GFR 50 ml/min 11/26/16 04:07 BUN/Creatinine Ratio 15 % 11/26/16 04:07 Glucose 103 mg/dL (65-100) H 11/26/16 04:07 POC Glucose 127 (70-105) H 11/26/16 07:20 Calcium 8.6 mg/dL (8.4-10.2) 11/26/16 04:07 Total Bilirubin 0.40 mg/dL (0.1-1.2) 11/21/16 14:31 AST 11 units/L (5-40) 11/21/16 14:31 ALT 11 units/L (7-56) 11/21/16 14:31 Alkaline Phosphatase 68 units/L (35-129) 11/21/16 14:31 Total Protein 8.2 g/dL (6.3-8.2) 11/21/16 14:31 Albumin 3.7 g/dL (3.9-5) L 11/21/16 14:31 Albumin/Globulin Ratio 0.8 % 11/21/16 14:31 Triglycerides 344 mg/dL (2-149) H 11/26/16 04:07 Cholesterol 172 mg/dL (50-199) 11/26/16 04:07 LDL Cholesterol Direct 59 mg/dL (50-130) 11/26/16 04:07 HDL Cholesterol 45 mg/dL (40-59) 11/26/16 04:07 Cholesterol/HDL Ratio 3.82 % 11/26/16 04:07 Vancomycin Trough 22.2 ug/mL (5.0-20.0) H 11/25/16 17:10
[2016-11-26] MEDS: ZOSYN/NS 3.375GM/50ML 3.375 GM/50 ML BAG IV SCH (09:40)
[2016-11-26] MEDS: DITROPAN PO SCH (09:43)
[2016-11-26] MEDS: HEPARIN SUB-Q SCH ×3 (09:44→22:37)
[2016-11-26] MEDS ORDERED: NACL 0.9% 1000 ML 1,000 ML IV SCH (10:00)
[2016-11-26] MEDS: LEVEMIR SUB-Q SCH ×2 (12:13→22:36)
[2016-11-26] MEDS: ZOSYN/NS 4.5GM/100ML 4.5 GM/100 ML VIAL IV SCH ×2 (14:56→21:05)
[2016-11-26] MEDS: NORCO 5/325 PO PRN (19:28)
[2016-11-26] MEDS: VANCOMYCIN 1,250 MG in NACL 0.9% 250ML 250 ML IV SCH (21:05)
[2016-11-26] MEDS: BENADRYL IV PRN (22:17)
[2016-11-27 05:14] LABS: Calcium 8.3 mg/dL (8.4-10.2); Chloride 102.3 mmol/L (98-107); Potassium 3.8 mmol/L (3.6-5.0)
[2016-11-27] MEDS: ZOSYN/NS 4.5GM/100ML 4.5 GM/100 ML VIAL IV SCH ×3 (05:46→23:22)
[2016-11-27] MEDS: HEPARIN SUB-Q SCH ×3 (05:47→23:23)
[2016-11-27] MEDS: NOVOLOG SUB-Q SCH ×4 (08:15→23:24)
[2016-11-27] MEDS: COLCRYS PO SCH ×2 (09:49→23:21)
[2016-11-27] MEDS: PLAVIX PO SCH (09:50)
[2016-11-27] MEDS: DITROPAN PO SCH (09:50)
[2016-11-27] MEDS: SENOKOT S PO SCH (09:50)
[2016-11-27] MEDS: LOTRIMIN TP SCH ×2 (09:51→22:30)
[2016-11-27] MEDS: BABY ASPIRIN PO SCH (09:51)
[2016-11-27] MEDS: VITAMIN C PO SCH ×2 (09:51→23:21)
[2016-11-27] MEDS: NORCO 5/325 PO PRN (09:51)
[2016-11-27] MEDS: CALAN SR PO SCH (09:53)
[2016-11-27] MEDS: LEVEMIR SUB-Q SCH ×3 (12:21→23:23)
[2016-11-27] MEDS: NACL 0.9% 1000 ML 1,000 ML IV SCH ×2 (14:26→23:23)
--- NOTE | 2016-11-27 17:37 | Progress Note ---
Assessment and Plan Assessment and plan: 66 yo obese female with metabolic syndrome, diabetes, hypertension, CVA with residual right-sided hemiparesis admitted at the request of Dr. Lau from wound clinic for nonhealing right heel ulcer with osteomyelitis, now unable to bear weight Right heel nonhealing ulcer/abscess/osteomyelitis In 07/2016 temporary bedbound and developed right heel decubitus ulcer; later a wound care nurse excised the eschar and subsequently developed foul smelling drainage; sent to the hospital from [facility] as unable to bear weight CT LE revealed calcaneal osteomyelitis Continue IV antibiotics Wound surgeon following Vascular surgery also consulted (see below for discussion) PAD History of remote vascular intervention Vascular Surgery consulted for likely underlying arterial disease limiting ability to heal distal wounds Arterial Doppler revealed right mid SFA stenosis and left popliteal artery stenosis GEOVANNI revealed right severe peripheral vascular disease and left mild vascular disease Underwent angiography and right balloon angioplasty of the right superficial femoral Needs additional vascular procedure (revascularization of the tibial artery) and Vascular Surgery recommended no surgical debridement unless the eschar transitions from dry to wet Discussed with Vascular Surgery and given her current condition and home situation, it will be in her benefit to have the procedure while hospitalized; planning for intervention on Monday11/28/16 Vascular Surgery management greatly appreciated Acute renal failure or VICTORIA on CKD Likely secondary to vasomotor nephropathy Received IV fluids and creatinine back to normal limits 11/25 Trended up again ? vancomycin toxicity; pharmacy consulted for dosing Increase IV fluids and monitor very closely HTN BP controlled on verapamil JR inhibitor indicated as she is diabetic, but avoided due to renal insufficiency DM On long acting insulin along with SSI based on Accu-Cheks Levemir dose increased BS better controlled, but not at goal yet A1C 6.4 Assessing insulin requirements and making further adjustments as good diabetes control is imperative Old CVA With residual right-sided weakness and upper extremity contracture On antiplatelet therapy, but not on statin; discussed with patient and no reason for this; LFTs wnl, total cholesterol/LDL wnl, but TG elevated; consider starting therapy at d/c Obesity/Metabolic syndrome Counseled regarding importance of losing weight, lifestyle changes and increased physical activity after foot wound healed and able to bear weight Gout Continue colchicine DVT prophylaxis History Interval history: s/p angiography and R SFA revascularization 11/23; scheduled for additional vascular procedure tomorrow, Tuesday 11/28 ; doing well Hospitalist Physical - Constitutional Vitals: Temp Pulse Resp BP Pulse Ox 97.9 F 74 18 154/68 100 11/27/16 14:00 11/27/16 14:00 11/27/16 14:00 11/27/16 14:00 11/27/16 14:00 General appearance: Present: no acute distress, obese - EENT Eyes: Present: PERRL, EOM intact - Neck Neck: Present: supple, normal ROM. Absent: masses or JVD - Respiratory Respiratory effort: normal Respiratory: bilateral: CTA, negative: rhonchi, wheezing - Cardiovascular Rhythm: regular Heart Sounds: Present: S1 & S2. Absent: systolic murmur - Extremities Extremities: no ischemia, abnormal (RUE contracture) Extremity abnormal: other (R foot dressing in place) - Abdominal General gastrointestinal: soft, non-tender, non-distended, normal bowel sounds - Psychiatric Psychiatric: cooperative Results - Labs CBC & Chem 7: 11/26/16 04:07 11/27/16 04:13 Labs: Laboratory Last Values WBC 7.4 K/mm3 (4.5-11.0) 11/26/16 04:07 RBC 3.87 M/mm3 (3.65-5.03) 11/26/16 04:07 Hgb 9.5 gm/dl (10.1-14.3) L 11/26/16 04:07 Hct 28.6 % (30.3-42.9) L 11/26/16 04:07 MCV 74 fl (79-97) L 11/26/16 04:07 MCH 24 pg (28-32) L 11/26/16 04:07 MCHC 33 % (30-34) 11/26/16 04:07 RDW 18.3 % (13.2-15.2) H 11/26/16 04:07 Plt Count 418 K/mm3 (140-440) 11/26/16 04:07 Lymph % (Auto) 26.0 % (13.4-35.0) 11/26/16 04:07 [place] % (Auto) 6.2 % (0.0-7.3) 11/26/16 04:07 Eos % (Auto) 4.9 % (0.0-4.3) H 11/26/16 04:07 Baso % (Auto) 0.6 % (0.0-1.8) 11/26/16 04:07 Lymph # 1.9 K/mm3 (1.2-5.4) 11/26/16 04:07 [place] # 0.5 K/mm3 (0.0-0.8) 11/26/16 04:07 Eos # 0.4 K/mm3 (0.0-0.4) 11/26/16 04:07 Baso # 0.0 K/mm3 (0.0-0.1) 11/26/16 04:07 Seg Neutrophils % 62.3 % (40.0-70.0) 11/26/16 04:07 Seg Neutrophils # 4.6 K/mm3 (1.8-7.7) 11/26/16 04:07 PT 14.4 Sec. (12.2-14.9) 11/21/16 14:31 INR 1.07 (0.87-1.13) 11/21/16 14:31 Sodium 140 mmol/L (137-145) 11/27/16 04:13 Potassium 3.8 mmol/L (3.6-5.0) 11/27/16 04:13 Chloride 102.3 mmol/L (98-107) 11/27/16 04:13 Carbon Dioxide 24 mmol/L (22-30) 11/27/16 04:13 Anion Gap 18 mmol/L 11/27/16 04:13 BUN 20 mg/dL (7-17) H 11/27/16 04:13 Creatinine 1.4 mg/dL (0.7-1.2) H 11/27/16 04:13 Estimated GFR 46 ml/min 11/27/16 04:13 BUN/Creatinine Ratio 14 % 11/27/16 04:13 Glucose 142 mg/dL (65-100) H 11/27/16 04:13 POC Glucose 150 (70-105) H 11/27/16 16:37 Hemoglobin A1c 6.4 % (4-6) H 11/27/16 04:13 Calcium 8.3 mg/dL (8.4-10.2) L 11/27/16 04:13 Total Bilirubin 0.40 mg/dL (0.1-1.2) 11/21/16 14:31 AST 11 units/L (5-40) 11/21/16 14:31 ALT 11 units/L (7-56) 11/21/16 14:31 Alkaline Phosphatase 68 units/L (35-129) 11/21/16 14:31 Total Protein 8.2 g/dL (6.3-8.2) 11/21/16 14:31 Albumin 3.7 g/dL (3.9-5) L 11/21/16 14:31 Albumin/Globulin Ratio 0.8 % 11/21/16 14:31 Triglycerides 344 mg/dL (2-149) H 11/26/16 04:07 Cholesterol 172 mg/dL (50-199) 11/26/16 04:07 LDL Cholesterol Direct 59 mg/dL (50-130) 11/26/16 04:07 HDL Cholesterol 45 mg/dL (40-59) 11/26/16 04:07 Cholesterol/HDL Ratio 3.82 % 11/26/16 04:07 Vancomycin Trough 22.2 ug/mL (5.0-20.0) H 11/25/16 17:10
[2016-11-27] MEDS: VANCOMYCIN 1,250 MG in NACL 0.9% 250ML 250 ML IV SCH (23:22)
[2016-11-28] MEDS: NORCO 5/325 PO PRN ×2 (00:41→11:44)
[2016-11-28] MEDS: BENADRYL IV PRN ×2 (00:49→22:55)
[2016-11-28 04:40] LABS: Basophils % (Auto) 0.3 % (0.0-1.8); Hematocrit 24.8 % (30.3-42.9); Hemoglobin 8.5 gm/dl (10.1-14.3); Mean Corpuscular HGB Conc 34 % (30-34); Mean Corpuscular Volume 73 fl (79-97); Platelet Count 354 K/mm3 (140-440); Red Blood Count 3.39 M/mm3 (3.65-5.03); Red Cell Distribution Width 18.3 % (13.2-15.2)
[2016-11-28 05:04] LABS: INR 0.99 (0.87-1.13)
[2016-11-28 05:15] LABS: Mean Corpuscular Hemoglobin 25 pg (28-32)
[2016-11-28 05:17] LABS: Calcium 8.2 mg/dL (8.4-10.2); Chloride 104.8 mmol/L (98-107); Potassium 4.2 mmol/L (3.6-5.0)
[2016-11-28] MEDS: ZOSYN/NS 4.5GM/100ML 4.5 GM/100 ML VIAL IV SCH ×3 (05:35→22:56)
[2016-11-28] MEDS: HEPARIN SUB-Q SCH ×3 (05:36→22:56)
[2016-11-28] MEDS: NOVOLOG SUB-Q SCH ×3 (07:28→16:30)
[2016-11-28] MEDS ORDERED: ANCEF/STERILE WATER 2 GM/20 ML 2 GM/20 ML SYRINGE IV NR (08:00)
[2016-11-28] MEDS ORDERED: HEPARIN/NS 5000 UNIT/500ML(CATH LAB) 1,000 ML IR ONE (08:18)
[2016-11-28] MEDS ORDERED: ANCEF/STERILE WATER 2 GM/20 ML 0 GM/0 ML SYRINGE IV ONE (08:19)
[2016-11-28] MEDS ORDERED: XYLOCAINE 2% INFILTRATI ONE (08:19)
[2016-11-28] MEDS ORDERED: BENADRYL ONE (08:24)
[2016-11-28] MEDS: SUBLIMAZE ONE ×2 (09:20→10:29)
[2016-11-28] MEDS: VERSED ONE ×2 (09:20→10:29)
[2016-11-28] MEDS ORDERED: NACL 0.9% 1000 ML 1,000 ML ONE (09:30)
[2016-11-28] MEDS: HEPARIN 10,000 UNITS/10 ML ONE ×3 (09:37→10:35)
[2016-11-28] MEDS: NITROGLYCERIN SYRINGE 3 ML ONE ×2 (09:37→09:42)
[2016-11-28] MEDS: CALAN ONE ×2 (09:37→09:42)
--- NOTE | 2016-11-28 11:16 | Operative Report ---
Operative Report Operative Report: Procedure: 1. Ultrasound guided puncture of the right dorsalis pedis artery 2. Ultrasound-guided puncture of the right posterior tibial artery 3. Right peroneal and anterior tibial arteriography 4. Right posterior tibial arteriography 5. Right popliteal arteriography 6. Balloon angioplasty of the right peroneal artery 7. Balloon angioplasty of the distal popliteal artery and proximal posterior tibial artery with a Lutonix drug-coated balloon Date of Procedure: 11/28/2016 History/Indication: 66-year-old female with a right sided nonhealing wound on her heel. Physician: Nguyen Peres MD Technique/Procedural Details: The patient was placed in the supine position and prepped and draped in the usual sterile fashion. A timeout was performed. Sonographic evaluation of the right foot arteries was performed, and images were acquired. Local anesthetic was administered. Under continuous ultrasound guidance, the right dorsalis pedis artery was accessed with a 21-gauge needle. A 018 wire was advanced, and the needle was exchanged for the inner portion of a 4 [place] dilator. Contrast was injected through the dilator to confirm placement. The 18 wire was advanced , and the dilator and her piece was exchanged for a 4/5 [place] glide sheath. A radial cocktail was administered. Through the glide sheath, Trailblazer catheter and the the 18 wire were coaxially advanced and used to cross a chronic occlusion involving the distal popliteal artery. Arteriography was again performed. The Trailblazer catheter was then exchanged for a 2.5 mm, 150 cm balloon. Balloon angioplasty of the peroneal artery was performed. After repeat arteriography, local anesthetic was again administered posterior to the medial malleolus. In a similar fashion as before, the right posterior tibial artery was accessed. The V 18 and 018 Trailblazer were used to cross a proximal posterior tibial artery occlusion. Arteriography was performed. Predilation was performed with the aforementioned 2.5 mm balloon. Thereafter, angioplasty was performed with a 4mm Lutonix drug-coated balloon. Repeat arteriography of the peroneal artery, popliteal artery, and posterior to the artery were performed. Both vascular sheaths were removed, and pressure dressings were applied. The patient tolerated the procedure well without immediate complication. Discussion: As seen after prior intervention, the mid popliteal artery is widely patent. There is variant anatomy, as access into the dorsalis pedis artery is contiguous with the peroneal artery. The peroneal artery and anterior tibial artery originate from their own trunk, while the posterior tibial artery originates independently from the popliteal artery (high origin variant). After angioplasty, the posterior tibial artery and peroneal arteries are now patent. There does remain a significant narrowing of the anterior tibial artery origin, but the foot now has significantly improved vascularity. I will determine any further need for intervention during outpatient follow-up. Specimen: None EBL: <5 cc
[2016-11-28] MEDS: COLCRYS PO SCH ×2 (11:29→22:59)
[2016-11-28] MEDS: BABY ASPIRIN PO SCH (11:29)
[2016-11-28] MEDS: PLAVIX PO SCH (11:29)
[2016-11-28] MEDS: VITAMIN C PO SCH ×2 (11:30→22:54)
[2016-11-28] MEDS: CALAN SR PO SCH (11:31)
[2016-11-28] MEDS: DITROPAN PO SCH (11:31)
[2016-11-28] MEDS: LEVEMIR SUB-Q SCH ×2 (11:32→22:57)
--- NOTE | 2016-11-28 12:02 | Progress Note ---
Assessment and Plan Assessment and plan. Diabetes. Hypertension. Peripheral vascular disease. Foot cellulitis. Patient has had arterial procedures to improve runoff of the leg. And is on antibiotics. Subjective Date of service: 11/28/16 Principal diagnosis: diabetic foot ulcer and pvd Interval history: follows with me at the wound care center Objective - Constitutional Vitals: Vital Signs - 12hr 11/28/16 11/28/16 11/28/16 06:26 08:09 11:31 Temperature 97.6 F 97.8 F Pulse Rate 70 70 72 Respiratory 20 18 Rate Blood Pressure 177/80 Blood Pressure 145/73 180/77 [Left] O2 Sat by Pulse 100 99 Oximetry General appearance: Present: no acute distress, obese - EENT Eyes: PERRL Ears: bilateral: normal - Labs CBC & Chem 7: 11/28/16 04:22 11/29/16 04:36 Labs: Abnormal lab results 11/27/16 11/27/16 11/28/16 Range/Units 16:37 22:41 04:22 RBC 3.39 L (3.65-5.03) M/mm3 Hgb 8.5 L (10.1-14.3) gm/dl Hct 24.8 L (30.3-42.9) % MCV 73 L (79-97) fl MCH 25 L (28-32) pg RDW 18.3 H (13.2-15.2) % [place] % (Auto) 7.6 H (0.0-7.3) % BUN (7-17) mg/dL Creatinine (0.7-1.2) mg/dL POC Glucose 150 H 144 H (70-105) Calcium (8.4-10.2) mg/dL 11/28/16 11/28/16 Range/Units 04:22 07:15 RBC (3.65-5.03) M/mm3 Hgb (10.1-14.3) gm/dl Hct (30.3-42.9) % MCV (79-97) fl MCH (28-32) pg RDW (13.2-15.2) % [place] % (Auto) (0.0-7.3) % BUN 20 H (7-17) mg/dL Creatinine 1.5 H (0.7-1.2) mg/dL POC Glucose 115 H (70-105) Calcium 8.2 L (8.4-10.2) mg/dL
[2016-11-28] MEDS: SENOKOT S PO SCH (12:53)
[2016-11-28] MEDS: LOTRIMIN TP SCH ×2 (14:52→22:54)
--- NOTE | 2016-11-28 17:46 | Progress Note ---
Assessment and Plan Assessment and plan: 66 yo obese female with metabolic syndrome, diabetes, hypertension, CVA with residual right-sided hemiparesis admitted at the request of Dr. Lau from wound clinic for nonhealing right heel ulcer with osteomyelitis, now unable to bear weight Right heel nonhealing ulcer/abscess/osteomyelitis In 07/2016 temporary bedbound and developed right heel decubitus ulcer; later a wound care nurse excised the eschar and subsequently developed foul smelling drainage; sent to the hospital from [facility] as unable to bear weight CT LE revealed calcaneal osteomyelitis Continue IV antibiotics Wound surgeon following Vascular surgery also consulted (see below for discussion) PAD History of remote vascular intervention Vascular Surgery consulted for likely underlying arterial disease limiting ability to heal distal wounds Arterial Doppler revealed right mid SFA stenosis and left popliteal artery stenosis GEOVANNI revealed right severe peripheral vascular disease and left mild vascular disease Underwent angiography and right balloon angioplasty of the right superficial femoral 11/23 Status post additional vascular procedure (revascularization of the tibial artery) today Now she can follow with wound surgeon for debridement Acute renal failure or VICTORIA on CKD Likely secondary to vasomotor nephropathy Received IV fluids and creatinine back to normal limits 11/25 Trended up again ? vancomycin toxicity; pharmacy consulted dose adjusted Recheck trough tonight and creatinine in the morning Continue IV fluids and monitor very closely HTN BP controlled on verapamil JR inhibitor indicated as she is diabetic, but avoided due to renal insufficiency DM On long acting insulin along with SSI based on Accu-Cheks Levemir dose increased BS better controlled, but not at goal yet A1C 6.4 Assessing insulin requirements and making further adjustments as good diabetes control is imperative Old CVA With residual right-sided weakness and upper extremity contracture On antiplatelet therapy, but not on statin; discussed with patient and no reason for this; LFTs wnl, total cholesterol/LDL wnl, but TG elevated; consider starting therapy at d/c Obesity/Metabolic syndrome Counseled regarding importance of losing weight, lifestyle changes and increased physical activity after foot wound healed and able to bear weight Gout Continue colchicine DVT prophylaxis History Interval history: s/p angiography and R SFA revascularization 11/23; s/p R tibial artery revascularization today, doing well Hospitalist Physical - Constitutional Vitals: Temp Pulse Resp BP Pulse Ox 97.4 F L 70 16 146/58 99 11/28/16 14:00 11/28/16 14:00 11/28/16 14:00 11/28/16 14:00 11/28/16 08:09 General appearance: Present: no acute distress, obese - EENT Eyes: Present: PERRL, EOM intact - Neck Neck: Present: supple, normal ROM. Absent: masses or JVD - Respiratory Respiratory effort: normal Respiratory: bilateral: CTA, negative: rhonchi, wheezing - Cardiovascular Rhythm: regular Heart Sounds: Present: S1 & S2. Absent: systolic murmur - Extremities Extremities: no ischemia, abnormal (right foot dressing in place; right arm contracture) - Abdominal General gastrointestinal: soft, non-tender, non-distended, normal bowel sounds - Psychiatric Psychiatric: cooperative - Neurologic Neurologic: other (right-sided hemiparesis with right arm contracture) Results - Labs CBC & Chem 7: 11/28/16 04:22 11/28/16 04:22 Labs: Laboratory Last Values WBC 8.0 K/mm3 (4.5-11.0) 11/28/16 04:22 RBC 3.39 M/mm3 (3.65-5.03) L 11/28/16 04:22 Hgb 8.5 gm/dl (10.1-14.3) L 11/28/16 04:22 Hct 24.8 % (30.3-42.9) L 11/28/16 04:22 MCV 73 fl (79-97) L 11/28/16 04:22 MCH 25 pg (28-32) L 11/28/16 04:22 MCHC 34 % (30-34) 11/28/16 04:22 RDW 18.3 % (13.2-15.2) H 11/28/16 04:22 Plt Count 354 K/mm3 (140-440) 11/28/16 04:22 Lymph % (Auto) 21.5 % (13.4-35.0) 11/28/16 04:22 [place] % (Auto) 7.6 % (0.0-7.3) H 11/28/16 04:22 Eos % (Auto) 4.0 % (0.0-4.3) 11/28/16 04:22 Baso % (Auto) 0.3 % (0.0-1.8) 11/28/16 04:22 Lymph # 1.7 K/mm3 (1.2-5.4) 11/28/16 04:22 [place] # 0.6 K/mm3 (0.0-0.8) 11/28/16 04:22 Eos # 0.3 K/mm3 (0.0-0.4) 11/28/16 04:22 Baso # 0.0 K/mm3 (0.0-0.1) 11/28/16 04:22 Seg Neutrophils % 66.6 % (40.0-70.0) 11/28/16 04:22 Seg Neutrophils # 5.3 K/mm3 (1.8-7.7) 11/28/16 04:22 PT 13.6 Sec. (12.2-14.9) 11/28/16 04:22 INR 0.99 (0.87-1.13) 11/28/16 04:22 Sodium 140 mmol/L (137-145) 11/28/16 04:22 Potassium 4.2 mmol/L (3.6-5.0) 11/28/16 04:22 Chloride 104.8 mmol/L (98-107) 11/28/16 04:22 Carbon Dioxide 25 mmol/L (22-30) 11/28/16 04:22 Anion Gap 14 mmol/L 11/28/16 04:22 BUN 20 mg/dL (7-17) H 11/28/16 04:22 Creatinine 1.5 mg/dL (0.7-1.2) H 11/28/16 04:22 Estimated GFR 42 ml/min 11/28/16 04:22 BUN/Creatinine Ratio 13 % 11/28/16 04:22 Glucose 97 mg/dL (65-100) 11/28/16 04:22 POC Glucose 167 (70-105) H 11/28/16 16:21 Hemoglobin A1c 6.4 % (4-6) H 11/27/16 04:13 Calcium 8.2 mg/dL (8.4-10.2) L 11/28/16 04:22 Total Bilirubin 0.40 mg/dL (0.1-1.2) 11/21/16 14:31 AST 11 units/L (5-40) 11/21/16 14:31 ALT 11 units/L (7-56) 11/21/16 14:31 Alkaline Phosphatase 68 units/L (35-129) 11/21/16 14:31 Total Protein 8.2 g/dL (6.3-8.2) 11/21/16 14:31 Albumin 3.7 g/dL (3.9-5) L 11/21/16 14:31 Albumin/Globulin Ratio 0.8 % 11/21/16 14:31 Triglycerides 344 mg/dL (2-149) H 11/26/16 04:07 Cholesterol 172 mg/dL (50-199) 11/26/16 04:07 LDL Cholesterol Direct 59 mg/dL (50-130) 11/26/16 04:07 HDL Cholesterol 45 mg/dL (40-59) 11/26/16 04:07 Cholesterol/HDL Ratio 3.82 % 11/26/16 04:07 Vancomycin Trough 22.2 ug/mL (5.0-20.0) H 11/25/16 17:10
[2016-11-28] MEDS: VANCOMYCIN 1,250 MG in NACL 0.9% 250ML 250 ML IV SCH (22:56)
[2016-11-28] MEDS: NACL 0.9% 1000 ML 1,000 ML IV SCH (22:56)
[2016-11-29] MEDS: NOVOLOG SUB-Q SCH ×3 (00:07→12:13)
[2016-11-29] MEDS: ZOSYN/NS 4.5GM/100ML 4.5 GM/100 ML VIAL IV SCH (05:51)
[2016-11-29] MEDS: HEPARIN SUB-Q SCH (05:52)
[2016-11-29 06:12] LABS: Chloride 106.2 mmol/L (98-107); Potassium 3.9 mmol/L (3.6-5.0)
[2016-11-29 08:42] VITALS: BP 156/71
[2016-11-29] MEDS: SENOKOT S PO SCH (10:32)
[2016-11-29] MEDS: VITAMIN C PO SCH (10:32)
[2016-11-29] MEDS: COLCRYS PO SCH (10:32)
[2016-11-29] MEDS: PLAVIX PO SCH (10:32)
[2016-11-29] MEDS: BABY ASPIRIN PO SCH (10:32)
[2016-11-29] MEDS: LEVEMIR SUB-Q SCH (10:33)
[2016-11-29] MEDS: LOTRIMIN TP SCH (10:33)
[2016-11-29] MEDS: DITROPAN PO SCH (10:33)
[2016-11-29] MEDS: CALAN SR PO SCH (10:34)
--- NOTE | 2016-11-29 11:17 | Discharge Summary ---
Providers - Providers Date of Admission: 11/21/16 14:01 Date of discharge: 11/29/16 Attending physician: CHRISTIAN OROURKE 11/21/16 12:46 Consult to Physician [CONS] Routine Consulting Provider: SHAAN REID Reason For Exam: cellulitis Place consult to:: Notified:: Phone number called:: [phone] Was contact made?: Yes If yes, spoke with:: KIRA Time called:: 16:23 Comment:: SONJA 11/21/16 12:50 Consult to Physician [CONS] Routine Consulting Provider: BRENNON KURTZ Reason For Exam: PVD/ Left heel ulcer-non healing Place consult to:: Notified:: Phone number called:: [phone] Was contact made?: Yes If yes, spoke with:: SRAVAN CUELLAR) Time called:: 16:39 Comment:: SONJA 11/22/16 06:28 Consult to Wound/ET Nurse [CONS] Urgent Reason For Exam: wound eval 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 Disposition: DC/[place]-06 HOME [facility] Time spent for discharge: 35 min Exam - Constitutional Vitals: Temp Pulse Resp BP Pulse Ox 98.2 F 81 20 156/71 97 11/29/16 08:41 11/29/16 10:34 11/29/16 08:41 11/29/16 10:34 11/29/16 08:41 Plan Activity: advance as tolerated, fall precautions Diet: low cholesterol, low salt Follow up with: LONA FRANCO MD [Primary Care Provider] - 7 Days AMILCAR CARPIO MD [Staff Physician] - 7 Days SHAAN REID MD [Staff Physician] - 3 Days Prescriptions: Atorvastatin Calcium [Lipitor] 10 mg PO DAILY #30 tablet Clopidogrel [Plavix] 75 mg PO QDAY #30 tablet Clotrimazole 1% [Lotrimin 1%] 1 applic TP BID #1 tube
--- NOTE | 2016-11-29 14:00 | Consultation ---
Past History Past Medical History: diabetes, hypertension, PVD, stroke (with residual RUE weakness), other (Metabolic syndrome, Breast Ca) Past Surgical History: hysterectomy (excision of 50lb fibroid tumor), Other ( Recent excision of pilonidal cyst, right shoulder I&D, Multiple right breast surgery due to Breast Ca, some sort of percutaneous lower ext arterial intervention by Dr Vitale at [facility] many years ago.) Social history: , lives with family. denies: smoking, alcohol abuse, prescription drug abuse Family history: cancer, diabetes, hypertension Medications and Allergies Allergies Allergy/AdvReac Type Severity Reaction Status Date / Time codeine Allergy Itching Verified 10/24/16 11:37 Sulfa (Sulfonamide Allergy Swelling Verified 10/24/16 11:37 Antibiotics) Home Medications Medication Instructions Recorded Confirmed Last Taken Type Acetaminophen [Acetaminophen 8 650 mg PO Q4H PRN 11/21/16 11/21/16 Unknown History Hour] Ascorbic Acid [Vitamin C] 500 mg PO BID 11/21/16 11/21/16 11/21/16 10:00 History 500 mg Aspirin [Aspirin BABY CHEW TAB] 81 mg PO DAILY 11/21/16 11/21/16 11/21/16 10:00 History Colchicine [Colcrys] 0.6 mg PO BID 11/21/16 11/21/16 11/21/16 10:00 History Doxycycline [Vibramycin CAP] 100 mg PO Q12HR 11/21/16 11/21/16 11/21/16 10:00 History HYDROcodone/APAP 5-325 5 - 325 mg PO Q6H 11/21/16 11/21/16 Unknown History Insulin Aspart [NovoLOG Flexpen] See Protocol SQ ACHS PRN 11/21/16 11/21/16 Unknown History Insulin Detemir [Levemir Flextouch] 15 units SQ Q12H 11/21/16 11/21/16 11/21/16 10:00 History Linaclotide [Linzess] 290 mcg PO QDAY 11/21/16 11/21/16 11/19/16 History 290 mcg Multivitamin Tab W-MINERAL 1 tab PO DAILY 11/21/16 11/21/16 11/21/16 10:00 History Oxybutynin [Ditropan] 5 mg PO DAILY 11/21/16 11/21/16 11/21/16 10:00 History Sennosides/Docusate Sodium [Senna 2 each PO DAILY 11/21/16 11/21/16 11/21/16 10: 00 History S Tablet] Simethicone [Gas Relief] 80 mg PO TID PRN 11/21/16 11/21/16 Unknown History Verapamil ER [Calan SR] 1 cap PO DAILY 11/21/16 11/21/16 11/21/16 10:00 History Atorvastatin Calcium [Lipitor] 10 mg PO DAILY #30 tablet 11/29/16 Unknown Rx Clopidogrel [Plavix] 75 mg PO QDAY #30 tablet 11/29/16 Unknown Rx Clotrimazole 1% [Lotrimin 1%] 1 applic TP BID #1 tube 11/29/16 Unknown Rx Active Meds: Active Medications Acetaminophen (Tylenol) 650 mg PO Q4H PRN PRN Reason: Pain MILD(1-3)/Fever >100.5/SPENCE Acetaminophen/Hydrocodone Bitart ([place] 5/325) 1 each PO Q6H PRN PRN Reason: Pain, Moderate (4-6) Last Admin: 11/28/16 11:44 Dose: 1 each Albuterol (Proventil) 2.5 mg IH Q4HRT PRN PRN Reason: Shortness Of Breath Ascorbic Acid (Vitamin C) 500 mg PO BID [facility] Last Admin: 11/29/16 10:32 Dose: 500 mg Aspirin (Baby Aspirin) 81 mg PO DAILY [facility] Last Admin: 11/29/16 10:32 Dose: 81 mg Bisacodyl (Dulcolax) 10 mg SD QDAY PRN PRN Reason: Constipation unrelieved by MOM Clopidogrel Bisulfate (Plavix) 75 mg PO QDAY [facility] Last Admin: 11/29/16 10:32 Dose: 75 mg Clotrimazole (Lotrimin) 1 applic TP BID [facility] Last Admin: 11/29/16 10:33 Dose: 1 applic Colchicine (Colcrys) 0.6 mg PO BID [facility] Last Admin: 11/29/16 10:32 Dose: 0.6 mg Diphenhydramine HCl (Benadryl) 25 mg IV ONCE PRN PRN Reason: c Vancomycin administration Last Admin: 11/28/16 00:49 Dose: 25 mg Diphenhydramine HCl (Benadryl) 25 mg IV Q6H PRN PRN Reason: Itching Last Admin: 11/28/16 22:55 Dose: 25 mg Heparin Sodium (Porcine) (Heparin) 5,000 unit SUB-Q Q8HR CLAUDIA Last Admin: 11/29/16 05:52 Dose: 5,000 unit Piperacillin Sod/Tazobactam Sod (Zosyn/Ns 4.5gm/100ml) 4.5 gm in 100 mls @ 200 mls/hr IV Q8HR CLAUDIA Last Admin: 11/29/16 05:51 Dose: 200 mls/hr Sodium Chloride (Nacl 0.9% 1000 Ml) 1,000 mls @ 125 mls/hr IV DIRECT [facility] Last Admin: 11/28/16 22:56 Dose: 125 mls/hr Vancomycin HCl (Vancomycin/Ns 1 Gm/250 Ml) 1 gm in 250 mls @ 166.667 mls/hr IV Q24H CLAUDIA Insulin Aspart (Novolog) 0 units SUB-Q ACHS [facility] PRN Reason: Protocol Last Admin: 11/29/16 12:13 Dose: 2 units Insulin Detemir (Levemir) 15 units SUB-Q Q12H [facility] Last Admin: 11/29/16 10:33 Dose: 15 units Magnesium Hydroxide (Milk Of Magnesia) 30 ml PO Q4H PRN PRN Reason: Constipation Last Admin: 11/22/16 17:54 Dose: 30 ml Ondansetron HCl (Zofran) 4 mg IV Q8H PRN PRN Reason: N/V unrelieved by Reglan Oxybutynin Chloride (Ditropan) 5 mg PO DAILY [facility] Last Admin: 11/29/16 10:33 Dose: 5 mg Senna/Docusate Sodium (Senokot S) 2 tab PO DAILY [facility] Last Admin: 11/29/16 10:32 Dose: 2 tab Simethicone (Mylicon) 80 mg PO TID PRN PRN Reason: Gas pain Last Admin: 11/26/16 21:06 Dose: 80 mg Vancomycin HCl (Vancomycin Pharmacy To Dose) 1 each IV PKCONSULT CLAUDIA PRN Reason: Protocol Verapamil HCl (Calan Sr) 240 mg PO DAILY [facility] Last Admin: 11/29/16 10:34 Dose: 240 mg Exam - Constitutional Vitals: Temp Pulse Resp BP Pulse Ox 98.2 F 81 20 156/71 99 11/29/16 08:41 11/29/16 10:34 11/29/16 08:41 11/29/16 10:34 11/29/16 10:00 Results - Labs CBC & Chem 7: 11/28/16 04:22 11/29/16 04:36 Labs: Abnormal lab results 11/28/16 11/28/16 11/28/16 Range/Units 16:21 20:56 22:35 Creatinine (0.7-1.2) mg/dL Glucose (65-100) mg/dL POC Glucose 167 H 215 H (70-105) Calcium (8.4-10.2) mg/dL Vancomycin Trough 20.9 H (5.0-20.0) ug/mL 11/29/16 11/29/16 11/29/16 Range/Units 04:36 07:17 12:09 Creatinine 1.3 H (0.7-1.2) mg/dL Glucose 141 H (65-100) mg/dL POC Glucose 187 H 171 H (70-105) Calcium 8.0 L (8.4-10.2) mg/dL Vancomycin Trough (5.0-20.0) ug/mL Assessment and Plan - Patient Problems (1) Cellulitis of heel, right Current Visit: Yes Status: Acute (2) Osteomyelitis of ankle or foot Current Visit: Yes Status: Acute (3) PAD (peripheral artery disease) Current Visit: Yes Status: Acute (4) Metabolic syndrome Current Visit: Yes Status: Acute (5) HTN (hypertension) Current Visit: Yes Status: Acute Qualifiers: Hypertension type: H (6) Diabetes Current Visit: Yes Status: Acute Qualifiers: Diabetes mellitus type: D Diabetes mellitus complication status: D Diabetes mellitus complication detail: D Diabetic retinopathy severity: D Proliferative retinopathy type: P Diabetes mellitus macular edema: D Diabetes mellitus belt sewer insulin use: D Laterality: L Chronic kidney disease stage: C (7) DVT prophylaxis Current Visit: Yes Status: Acute (8) ARF (acute renal failure) Current Visit: Yes Status: Acute Qualifiers: Acute renal failure type: A (9) Decubital ulcer Current Visit: Yes Status: Acute Qualifiers: Pressure ulcer location: P Pressure ulcer stage: P Laterality: L (10) Atherosclerosis of [place] arteries of the extremities with ulceration Current Visit: Yes Status: Acute (11) History of cerebrovascular accident (CVA) with residual deficit Current Visit: Yes Status: Acute
--- NOTE | 2016-11-29 14:08 | Progress Note ---
Assessment and Plan - Patient Problems (1) Cellulitis of heel, right Current Visit: Yes Status: Acute (2) Osteomyelitis of ankle or foot Current Visit: Yes Status: Acute (3) PAD (peripheral artery disease) Current Visit: Yes Status: Acute (4) HTN (hypertension) Current Visit: Yes Status: Acute Qualifiers: Hypertension type: H (5) Diabetes Current Visit: Yes Status: Acute Qualifiers: Diabetes mellitus type: type 2 Diabetes mellitus complication status: with skin complications Diabetic retinopathy severity: D Proliferative retinopathy type: P Diabetes mellitus macular edema: D Diabetes mellitus long term care phlebotomist insulin use: D Laterality: L Chronic kidney disease stage: C (6) ARF (acute renal failure) Current Visit: Yes Status: Acute Qualifiers: Acute renal failure type: A (7) Decubital ulcer Current Visit: Yes Status: Acute Qualifiers: Pressure ulcer location: P Pressure ulcer stage: P Laterality: L (8) Atherosclerosis of [place] arteries of the extremities with ulceration Current Visit: Yes Status: Acute (9) History of cerebrovascular accident (CVA) with residual deficit Current Visit: Yes Status: Acute Subjective Principal diagnosis: diabetic foot ulcer and pvd Interval history: Explained to the patient that they need to follow with me at the wound care center follows with me at the wound care center Objective - Constitutional Vitals: Vital Signs - 12hr 11/29/16 11/29/16 11/29/16 03:00 08:41 10:00 Temperature 99.1 F 98.2 F Pulse Rate 79 81 Respiratory 20 20 Rate Blood Pressure Blood Pressure 152/64 156/71 [Left] O2 Sat by Pulse 96 97 99 Oximetry 11/29/16 10:34 Temperature Pulse Rate 81 Respiratory Rate Blood Pressure 156/71 Blood Pressure [Left] O2 Sat by Pulse Oximetry General appearance: Present: no acute distress - EENT Eyes: PERRL, EOM intact ENT: hearing intact, clear oral mucosa - Neck Neck: supple - Respiratory Respiratory effort: normal - Breasts Breasts: deferred - Cardiovascular Heart Sounds: Present: S1 & S2 Extremity abnormal: other - Gastrointestinal General gastrointestinal: Present: soft, non-tender, non-distended Rectal Exam: deferred - Genitourinary Female genitourinary: deferred - Integumentary Integumentary: warm - Musculoskeletal Musculoskeletal: strength equal bilaterally - Neurologic Neurologic: CNII-XII intact - Psychiatric Psychiatric: appropriate mood/affect - Labs CBC & Chem 7: 11/28/16 04:22 11/29/16 04:36 Labs: Abnormal lab results 11/28/16 11/28/16 11/28/16 Range/Units 16:21 20:56 22:35 Creatinine (0.7-1.2) mg/dL Glucose (65-100) mg/dL POC Glucose 167 H 215 H (70-105) Calcium (8.4-10.2) mg/dL Vancomycin Trough 20.9 H (5.0-20.0) ug/mL 11/29/16 11/29/16 11/29/16 Range/Units 04:36 07:17 12:09 Creatinine 1.3 H (0.7-1.2) mg/dL Glucose 141 H (65-100) mg/dL POC Glucose 187 H 171 H (70-105) Calcium 8.0 L (8.4-10.2) mg/dL Vancomycin Trough (5.0-20.0) ug/mL
--- NOTE | 2016-11-29 14:22 | Vascular Lab Report ---
MISCELLANEOUS VESSEL IDENTIFICATION: COMMENTS ON THE SCAN: The right dorsalis pedis artery was identified and under real-time ultrasound guidance was cannulated. IMPRESSION: Successful ultrasound guided arterial cannulation.
--- NOTE | 2016-11-29 14:23 | Vascular Lab Report ---
MISCELLANEOUS VESSEL IDENTIFICATION: COMMENTS ON THE SCAN: The right posterior tibial artery was identified and under real-time ultrasound guidance was cannulated. IMPRESSION: Successful ultrasound guided arterial cannulation.
--- NOTE | 2016-11-29 15:14 | Progress Note ---
Assessment and Plan She has had a good outcome after revascularization. There are should now be enough vascular supply to the heel for debridement to heal properly. She should continue aspirin and Plavix and follow up with me within 2 weeks as an outpatient. Subjective Date of service: 11/29/16 Principal diagnosis: diabetic foot ulcer and pvd Interval history: The patient is status post right lower extremity revascularization. She states that her right leg pain is gone, and she feels much better. Objective - Constitutional Vitals: Vital Signs - 12hr 11/29/16 11/29/16 11/29/16 08:41 10:00 10:34 Temperature 98.2 F Pulse Rate 81 81 Respiratory 20 Rate Blood Pressure 156/71 Blood Pressure 156/71 [Left] O2 Sat by Pulse 97 99 Oximetry General appearance: Present: no acute distress - EENT Eyes: PERRL ENT: hearing intact Extremity abnormal: other (she has a Doppler signal at both the right posterior tibial and dorsalis pedis artery) - Labs CBC & Chem 7: 11/28/16 04:22 11/29/16 04:36 Labs: Abnormal lab results 11/28/16 11/28/16 11/28/16 Range/Units 16:21 20:56 22:35 Creatinine (0.7-1.2) mg/dL Glucose (65-100) mg/dL POC Glucose 167 H 215 H (70-105) Calcium (8.4-10.2) mg/dL Vancomycin Trough 20.9 H (5.0-20.0) ug/mL 11/29/16 11/29/16 11/29/16 Range/Units 04:36 07:17 12:09 Creatinine 1.3 H (0.7-1.2) mg/dL Glucose 141 H (65-100) mg/dL POC Glucose 187 H 171 H (70-105) Calcium 8.0 L (8.4-10.2) mg/dL Vancomycin Trough (5.0-20.0) ug/mL
[2016-11-29] MEDS ORDERED: VANCOMYCIN/NS 1 GM/250 ML 1 GM/250 ML BAG IV SCH (22:00)
== END 2016-11-29 12:46 | disposition home health service (06) | DRG 270 ==
LOC: UNDOADMIN 12:44 → 3A 12:44 → CC2 14:01
PROVIDERS: ADMIT Internal Medicine; ATTEND Internal Medicine
PROC: 04CK3ZZ Extirpation of Matter from Right Femoral Artery, Percutaneous Approach (ICD-10-PCS; 2016-11-23)
PROC: 047K3ZZ Dilation of Right Femoral Artery, Percutaneous Approach (ICD-10-PCS; 2016-11-23)
PROC: 04CM3ZZ Extirpation of Matter from Right Popliteal Artery, Percutaneous Approach (ICD-10-PCS; 2016-11-23)
PROC: 047M3ZZ Dilation of Right Popliteal Artery, Percutaneous Approach (ICD-10-PCS; 2016-11-23)
PROC: B41D1ZZ Fluoroscopy of Aorta and Bilateral Lower Extremity Arteries using Low Osmolar Contrast (ICD-10-PCS; 2016-11-23)
PROC: 047T3ZZ Dilation of Right Peroneal Artery, Percutaneous Approach (ICD-10-PCS; principal; 2016-11-28)
PROC: 047R3Z1 Dilation of Right Posterior Tibial Artery using Drug-Coated Balloon, Percutaneous Approach (ICD-10-PCS; 2016-11-28)
PROC: 047M3ZZ Dilation of Right Popliteal Artery, Percutaneous Approach (ICD-10-PCS; 2016-11-28)
PROC: B41F1ZZ Fluoroscopy of Right Lower Extremity Arteries using Low Osmolar Contrast (ICD-10-PCS; 2016-11-28)
DX: E11.52 Type 2 diabetes mellitus with diabetic peripheral angiopathy with gangrene (principal); N17.0 Acute kidney failure with tubular necrosis; L03.116 Cellulitis of left lower limb; I69.351 Hemiplegia and hemiparesis following cerebral infarction affecting right dominant side; Z68.41 Body mass index [BMI] 40.0-44.9, adult; I70.263 Atherosclerosis of native arteries of extremities with gangrene, bilateral legs; M86.8X7 Other osteomyelitis, ankle and foot; E88.81 Metabolic syndrome and other insulin resistance; I10 Essential (primary) hypertension; L89.619 Pressure ulcer of right heel, unspecified stage; M10.9 Gout, unspecified; E66.01 Morbid (severe) obesity due to excess calories; Z90.710 Acquired absence of both cervix and uterus; Z83.3 Family history of diabetes mellitus; Z82.49 Family history of ischemic heart disease and other diseases of the circulatory system; Z79.2 Long term (current) use of antibiotics; Z79.82 Long term (current) use of aspirin; Z79.4 Long term (current) use of insulin; Z79.899 Other long term (current) drug therapy; Z85.3 Personal history of malignant neoplasm of breast; Z88.5 Allergy status to narcotic agent; Z88.2 Allergy status to sulfonamides; Z80.9 Family history of malignant neoplasm, unspecified
CPT/HCPCS: 36415; 37224; 37225; 37228; 37232; 75710; 76937; 80048; 80053; 80061; 80202; 82962; 83036; 85025; 85610; 87040; 93922; 93925; 94760; C1724; C1725; C1750; C1751; C1769; C1887; C1894; C2623; J0690; J1200; J1644; J1815; J1818; J2250; J2543; J2930; J3010; J3370; J7030; J7040; J7050; Q9967

== ENCOUNTER 2016-12-16 13:04 | Outpatient (CLI) | payer MEDICARE | END 2016-12-16 13:05 | disposition home or self-care (01) | LOC: WOUND 13:04 | PROVIDERS: ATTEND Podiatrist | DX: I70.235 Atherosclerosis of native arteries of right leg with ulceration of other part of foot (principal); E11.621 Type 2 diabetes mellitus with foot ulcer; E11.69 Type 2 diabetes mellitus with other specified complication; M86.671 Other chronic osteomyelitis, right ankle and foot; I10 Essential (primary) hypertension; Z85.3 Personal history of malignant neoplasm of breast; Z86.73 Personal history of transient ischemic attack (TIA), and cerebral infarction without residual deficits | CPT/HCPCS: 82962; G0277; 99183 ==

== ENCOUNTER 2016-12-20 12:45 | Outpatient (CLI) | payer MEDICARE | END 2016-12-20 12:46 | disposition home or self-care (01) | LOC: WOUND 12:45 | PROVIDERS: ATTEND Surgery | DX: I70.235 Atherosclerosis of native arteries of right leg with ulceration of other part of foot (principal); E11.621 Type 2 diabetes mellitus with foot ulcer; L97.411 Non-pressure chronic ulcer of right heel and midfoot limited to breakdown of skin; E11.69 Type 2 diabetes mellitus with other specified complication; M86.671 Other chronic osteomyelitis, right ankle and foot; I10 Essential (primary) hypertension; Z85.3 Personal history of malignant neoplasm of breast; Z86.73 Personal history of transient ischemic attack (TIA), and cerebral infarction without residual deficits; Z90.710 Acquired absence of both cervix and uterus | CPT/HCPCS: 82962; G0277; 99183 ==

== ENCOUNTER 2016-12-21 12:55 | Outpatient (CLI) | payer MEDICARE | END 2016-12-21 12:56 | disposition home or self-care (01) | LOC: WOUND 12:55 | PROVIDERS: ATTEND Surgery | DX: I70.235 Atherosclerosis of native arteries of right leg with ulceration of other part of foot (principal); E11.621 Type 2 diabetes mellitus with foot ulcer; L97.411 Non-pressure chronic ulcer of right heel and midfoot limited to breakdown of skin; E11.69 Type 2 diabetes mellitus with other specified complication; M86.671 Other chronic osteomyelitis, right ankle and foot; I10 Essential (primary) hypertension; Z85.3 Personal history of malignant neoplasm of breast; Z86.73 Personal history of transient ischemic attack (TIA), and cerebral infarction without residual deficits; Z90.710 Acquired absence of both cervix and uterus | CPT/HCPCS: 82962; G0277; 99183 ==

== ENCOUNTER 2016-12-22 13:05 | Outpatient (CLI) | payer MEDICARE | END 2016-12-22 13:06 | disposition home or self-care (01) | LOC: WOUND 13:05 | PROVIDERS: ATTEND Nurse Practitioner | DX: E11.621 Type 2 diabetes mellitus with foot ulcer (principal); I70.235 Atherosclerosis of native arteries of right leg with ulceration of other part of foot; L97.411 Non-pressure chronic ulcer of right heel and midfoot limited to breakdown of skin; E11.69 Type 2 diabetes mellitus with other specified complication; M86.671 Other chronic osteomyelitis, right ankle and foot; Z85.3 Personal history of malignant neoplasm of breast; Z86.73 Personal history of transient ischemic attack (TIA), and cerebral infarction without residual deficits; Z90.710 Acquired absence of both cervix and uterus | CPT/HCPCS: 82962; G0277; 99183 ==

== ENCOUNTER 2016-12-26 11:06 | Outpatient (CLI) | payer MEDICARE ==
[2016-12-26] MEDS ORDERED: XYLOCAINE TOPICAL 4% TP ONE (12:55)
[2016-12-26] MEDS ORDERED: XYLOCAINE 1% 20 mL ONE (12:59)
== END 2016-12-26 11:07 | disposition home or self-care (01) ==
LOC: WOUND 11:06
PROVIDERS: ATTEND Internal Medicine
DX: I70.235 Atherosclerosis of native arteries of right leg with ulceration of other part of foot (principal); E11.621 Type 2 diabetes mellitus with foot ulcer; L97.411 Non-pressure chronic ulcer of right heel and midfoot limited to breakdown of skin; E11.69 Type 2 diabetes mellitus with other specified complication; M86.671 Other chronic osteomyelitis, right ankle and foot; Z85.3 Personal history of malignant neoplasm of breast; Z86.73 Personal history of transient ischemic attack (TIA), and cerebral infarction without residual deficits; Z90.710 Acquired absence of both cervix and uterus
CPT/HCPCS: 11043; 11046; 82962; G0277; 99183

== ENCOUNTER 2017-01-02 11:00 | Outpatient (CLI) | payer MEDICARE ==
[2017-01-02] MEDS ORDERED: XYLOCAINE TOPICAL 4% TP ONE (11:23)
[2017-01-02] MEDS ORDERED: XYLOCAINE TOPICAL 2% TP ONE (11:28)
== END 2017-01-02 11:01 | disposition home or self-care (01) ==
LOC: WOUND 11:00
PROVIDERS: ATTEND Internal Medicine
DX: I70.235 Atherosclerosis of native arteries of right leg with ulceration of other part of foot (principal); E11.621 Type 2 diabetes mellitus with foot ulcer; L97.411 Non-pressure chronic ulcer of right heel and midfoot limited to breakdown of skin; E11.69 Type 2 diabetes mellitus with other specified complication; M86.671 Other chronic osteomyelitis, right ankle and foot; I10 Essential (primary) hypertension; Z85.3 Personal history of malignant neoplasm of breast; Z86.73 Personal history of transient ischemic attack (TIA), and cerebral infarction without residual deficits; Z90.710 Acquired absence of both cervix and uterus

== ENCOUNTER 2017-01-02 12:27 | Inpatient (IN) | payer MEDICARE ==
[2017-01-02] MEDS ORDERED: ACETAMINOPHEN 650 MG PO PRN (15:48)
[2017-01-02] MEDS ORDERED: MYLICON PO PRN (15:48)
[2017-01-02] MEDS ORDERED: MILK OF MAGNESIA PO PRN (15:58)
[2017-01-02] MEDS ORDERED: ZOFRAN IV PRN (15:58)
[2017-01-02] MEDS ORDERED: TYLENOL PO PRN (15:58)
[2017-01-02] MEDS ORDERED: DULCOLAX PR PRN (15:58)
[2017-01-02] MEDS ORDERED: MORPHINE IV PRN (15:58)
[2017-01-02] MEDS ORDERED: ACETAMINOPHEN PO SCH (16:00)
[2017-01-02] MEDS ORDERED: INSULIN DETEMIR 15 UNIT SQ SCH (16:00)
[2017-01-02] MEDS ORDERED: HYDROCODONE PO SCH (16:00)
--- NOTE | 2017-01-02 16:11 | History and Physical Report ---
History of Present Illness Date of admission: 01/02/17 13:23 Chief complaint: Sent from wound care clinic for right ankle infected ulcer History of present illness: 66 YO Female with HTN, DM, Obesity,CVA with RHP, PVD, directly admitted to hospitalist service at the request of Dr. Lau from the wound clinic for nonhealing Right heel ulcer which he suspects is infected. She states that she has minimal pain in the right heel. However it is swollen, it is foul- smelling. And the wound is not healing. She has been able to bear weight on it and get back and forth to clinic. Denies fever she denies chills. Past History Past Medical History: other (diabetes, hypertension, PVD, stroke, other ( Metabolic syndrome), PAD sp Angioplasty to RLE) Past Surgical History: Other (hysterectomy, (Lipoma excision, ), Angioplasty to RLE) Social history: , lives with family. denies: smoking, alcohol abuse, prescription drug abuse, IV drug use Family history: diabetes, hypertension Medications and Allergies Allergies Allergy/AdvReac Type Severity Reaction Status Date / Time codeine Allergy Itching Verified 10/24/16 11:37 Sulfa (Sulfonamide Allergy Swelling Verified 10/24/16 11:37 Antibiotics) Home Medications Medication Instructions Recorded Confirmed Last Taken Type Acetaminophen [Acetaminophen 8 650 mg PO Q4H PRN 11/21/16 11/21/16 Unknown History Hour] Ascorbic Acid [Vitamin C] 500 mg PO BID 11/21/16 11/21/16 11/21/16 10:00 History 500 mg Aspirin [Aspirin BABY CHEW TAB] 81 mg PO DAILY 11/21/16 11/21/16 11/21/16 10:00 History Colchicine [Colcrys] 0.6 mg PO BID 11/21/16 11/21/16 11/21/16 10:00 History Doxycycline [Vibramycin CAP] 100 mg PO Q12HR 11/21/16 11/21/16 11/21/16 10:00 History HYDROcodone/APAP 5-325 5 - 325 mg PO Q6H 11/21/16 11/21/16 Unknown History Insulin Aspart [NovoLOG Flexpen] See Protocol SQ ACHS PRN 11/21/16 11/21/16 Unknown History Insulin Detemir [Levemir Flextouch] 15 units SQ Q12H 11/21/16 11/21/16 11/21/16 10:00 History Linaclotide [Linzess] 290 mcg PO QDAY 11/21/16 11/21/16 11/19/16 History 290 mcg Multivitamin Tab W-MINERAL 1 tab PO DAILY 11/21/16 11/21/16 11/21/16 10:00 History Oxybutynin [Ditropan] 5 mg PO DAILY 11/21/16 11/21/16 11/21/16 10:00 History Sennosides/Docusate Sodium [Senna 2 each PO DAILY 11/21/16 11/21/16 11/21/16 10: 00 History S Tablet] Simethicone [Gas Relief] 80 mg PO TID PRN 11/21/16 11/21/16 Unknown History Verapamil ER [Calan SR] 1 cap PO DAILY 11/21/16 11/21/16 11/21/16 10:00 History Atorvastatin Calcium [Lipitor] 10 mg PO DAILY #30 tablet 11/29/16 Unknown Rx Clopidogrel [Plavix] 75 mg PO QDAY #30 tablet 11/29/16 Unknown Rx Clotrimazole 1% [Lotrimin 1%] 1 applic TP BID #1 tube 11/29/16 Unknown Rx Active Meds: Active Medications Acetaminophen (Tylenol) 650 mg PO Q4H PRN PRN Reason: Pain MILD(1-3)/Fever >100.5/SPENCE Ascorbic Acid (Vitamin C) 500 mg PO BID [facility] Aspirin (Baby Aspirin) 81 mg PO DAILY [facility] Atorvastatin Calcium (Lipitor) 10 mg PO DAILY [facility] Bisacodyl (Dulcolax) 10 mg AL QDAY PRN PRN Reason: Constipation unrelieved by MOM Clopidogrel Bisulfate (Plavix) 75 mg PO QDAY [facility] Clotrimazole (Lotrimin) 1 applic TP BID [facility] Colchicine (Colcrys) 0.6 mg PO BID [facility] Doxycycline Hyclate (Vibramycin) 100 mg PO Q12HR [facility] Enoxaparin Sodium (Lovenox) 40 mg SUB-Q QDAY@2200 [facility] Piperacillin Sod/Tazobactam Sod (Zosyn/Ns 4.5gm/100ml) 4.5 gm in 100 mls @ 200 mls/hr IV Q8HR [facility] PRN Reason: Protocol Magnesium Hydroxide (Milk Of Magnesia) 30 ml PO Q4H PRN PRN Reason: Constipation Miscellaneous Medication (Acetaminophen [Acetaminophen 8 Hour]) 650 mg PO Q4H PRN PRN Reason: Mild Pain Miscellaneous Medication (Hydrocodone/Apap 5-325) 5 - 325 mg PO Q6H [facility] Miscellaneous Medication (Insulin Detemir [Levemir Flextouch]) 15 units SQ Q12H [facility] Miscellaneous Medication (Linaclotide [Linzess]) 290 mcg PO QDAY [facility] Miscellaneous Medication (Multivitamin Tab W-Mineral) 1 tab PO DAILY [facility] Morphine Sulfate (Morphine) 4 mg IV Q4H PRN PRN Reason: Pain , Severe (7-10) Ondansetron HCl (Zofran) 4 mg IV Q8H PRN PRN Reason: N/V unrelieved by Reglan Oxybutynin Chloride (Ditropan) 5 mg PO DAILY [facility] Senna/Docusate Sodium (Senokot S) 2 tab PO DAILY [facility] Simethicone (Mylicon) 80 mg PO TID PRN PRN Reason: Gas pain Vancomycin HCl (Vancomycin Pharmacy To Dose) 1 each IV PKCONSULT [facility] PRN Reason: Protocol Verapamil HCl (Calan Sr) mg PO DAILY [facility] Review of Systems All systems: negative Constitutional: no fever, no chills Integumentary: other (RLE) Exam - Constitutional General appearance: Present: no acute distress, well-nourished - EENT Eyes: Present: PERRL ENT: hearing intact, clear oral mucosa - Neck Neck: Present: supple, normal ROM - Respiratory Respiratory effort: normal Respiratory: bilateral: CTA - Cardiovascular Heart Sounds: Present: S1 & S2. Absent: rub, click - Extremities Extremity abnormal: edema (right foot, skin changes in the right leg consistent with venous stasis. Foul-smelling THE the right ankle with surrounding erythema ) Peripheral Pulses: within normal limits - Abdominal General gastrointestinal: Present: soft, non-tender, non-distended, normal bowel sounds Female genitourinary: Present: normal - Integumentary Integumentary: Present: clear - Musculoskeletal Musculoskeletal: right sided weakness (chronic) - Psychiatric Psychiatric: appropriate mood/affect, intact judgment & insight - Neurologic Neurologic: CNII-XII intact, moves all extremities Results - Labs CBC & Chem 7: 01/02/17 17:34 11/27/17 17:34 - Imaging and Cardiology Imaging and Cardiology: Arterial US, BLE PRELIMINARY REPORT.BLE ARTERIAL DUPLEX DONE.VESSELS APPEAR PATENT .MONOPHASIC WAVEFORMS OBTAINED IN THE RT.MID SFA UP TO THE RT.DS [employer] DIRECTOR/SEKOU/DPA AND IN THE LT.DPA. 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
[2017-01-02] MEDS ORDERED: D50W (25GM) Syringe IV PRN (16:15)
[2017-01-02] MEDS ORDERED: VANCOMYCIN PHARMACY TO DOSE IV SCH (17:00)
[2017-01-02 17:54] LABS: Basophils % (Auto) 0.3 % (0.0-1.8); Eosinophils % (Auto) 2.1 % (0.0-4.3); Hematocrit 28.5 % (30.3-42.9); Hemoglobin 9.1 gm/dl (10.1-14.3); Mean Corpuscular HGB Conc 32 % (30-34); Mean Corpuscular Volume 77 fl (79-97); Platelet Count 443 K/mm3 (140-440); Red Blood Count 3.69 M/mm3 (3.65-5.03); Red Cell Distribution Width 19.8 % (13.2-15.2); White Blood Count 10.6 K/mm3 (4.5-11.0)
[2017-01-02] MEDS ORDERED: NORCO 5/325 PO PRN (17:57)
[2017-01-02 18:00] LABS: Mean Corpuscular Hemoglobin 25 pg (28-32)
[2017-01-02 18:06] LABS: Calcium 8.6 mg/dL (8.4-10.2)
[2017-01-02 18:07] LABS: Chloride 102.2 mmol/L (98-107); Potassium 4.8 mmol/L (3.6-5.0)
[2017-01-02] MEDS: NOVOLOG SUB-Q SCH ×3 (18:36→23:30)
[2017-01-02] MEDS: ZOSYN/NS 4.5GM/100ML 4.5 GM/100 ML VIAL IV SCH (18:36)
[2017-01-02] MEDS ORDERED: VANCOMYCIN 2,000 MG in NACL 0.9% 500 ML 500 ML IV ONE (20:00)
[2017-01-02] MEDS ORDERED: VIBRAMYCIN PO SCH (22:00)
[2017-01-02] MEDS: LEVEMIR SUB-Q SCH (23:30)
[2017-01-02] MEDS: VITAMIN C PO SCH (23:30)
[2017-01-02] MEDS: LOVENOX SUB-Q SCH (23:30)
[2017-01-02] MEDS: COLCRYS PO SCH (23:30)
[2017-01-03] MEDS: PERCOCET 5/325 PO PRN ×2 (01:17→10:59)
[2017-01-03] MEDS: LOTRIMIN TP SCH ×3 (01:18→23:51)
--- NOTE | 2017-01-03 03:12 | Consultation ---
CHIEF COMPLAINT: Diabetic foot ulcer. HISTORY OF PRESENT ILLNESS: Basically, I have seen this patient in the wound center for sometime. She had a toe ulcer initially that healed. She has a heel ulcer that has been getting slightly larger with a more purulent drainage, odor, discharge and exudate and basically she was in the hospital while back had vascular procedures done, but subsequently has been outpatient treatment and in my opinion her heel has not progressed nicely. I found it pertinent to call the hospitalist to admit the patient. I believe she needs arterial Dopplers, ID consult, vascular consult. Offloading wound care, possible debridement and a reevaluation of her arterial status of the heel. REVIEW OF SYSTEMS: No chest pain, no shortness of breath. No GI or complaints. PAST MEDICAL HISTORY: Diabetes, hypertension, peripheral vascular disease, stroke, PAD. PAST SURGICAL HISTORY: Hysterectomy, lipoma excision, angioplasty to right lower extremity. SOCIAL HISTORY: , lives with family. FAMILY HISTORY: Diabetes, hypertension. MEDICATION ALLERGIES: CODEINE, SULFA. MEDICATIONS: Tylenol, vitamin C, aspirin, Colcrys, vibramycin, hydrocodone, NovoLog, Levemir, Linzess, multivitamin, oxybutynin, senna, verapamil, Lipitor, Plavix, clotrimazole. In addition, she is going to have vancomycin and Zosyn here in addition to Lovenox. She also takes colchicine. PHYSICAL EXAMINATION: VITAL SIGNS: Stable. GENERAL: She is obese. HEENT: Head: Normocephalic, atraumatic. EOMI, PERRLA. NECK: She has no lymphadenopathy, JVD, or bruits. CARDIOVASCULAR: S1, S2. LUNGS: Good air entry. ABDOMEN: Rotund. EXTREMITIES: Her foot and heel appear stable. Wound with slough, exudate, as I have noted before. ASSESSMENT AND PLAN: 1. Cellulitis of the heel. IV antibiotics, wound cultures, blood cultures. Surgery for wound care. 2. Osteomyelitis. Consider imaging. 3. Peripheral arterial disease. Again, Vascular Surgery consult to consider more aggressive treatment and possible angio. 4. Metabolic syndrome, appears to be stable. 5. Hypertension. Resume home medications. 6. Diabetes. Accu-Cheks, sliding scale insulin and monitor. 7. Renal insufficiency. Intravenous fluids, monitor electrolytes, etc. JOB# [id number] DAVID/CADENCE
[2017-01-03] MEDS: ZOSYN/NS 4.5GM/100ML 4.5 GM/100 ML VIAL IV SCH ×3 (04:54→23:49)
[2017-01-03] MEDS: NACL 0.45% 1000 ML 1,000 ML IV SCH (04:55)
[2017-01-03 05:00] LABS: Hematocrit 28.2 % (30.3-42.9); Hemoglobin 9.6 gm/dl (10.1-14.3); Mean Corpuscular HGB Conc 34 % (30-34); Mean Corpuscular Hemoglobin 26 pg (28-32); Mean Corpuscular Volume 76 fl (79-97); Platelet Count 451 K/mm3 (140-440); Red Blood Count 3.69 M/mm3 (3.65-5.03); Red Cell Distribution Width 19.1 % (13.2-15.2); White Blood Count 10.9 K/mm3 (4.5-11.0)
[2017-01-03 05:12] LABS: Calcium 8.7 mg/dL (8.4-10.2); Chloride 98.9 mmol/L (98-107); Potassium 4.1 mmol/L (3.6-5.0)
[2017-01-03 07:09] LABS: Basophils % (Manual) 0 % (0.0-1.8); Blastocytes % (Manual) 0 %
[2017-01-03 07:10] LABS: Anisocytosis RARE; Diff Status Complete
--- NOTE | 2017-01-03 08:01 | Vascular Lab Report ---
LOWER EXTREMITY ARTERIAL DUPLEX: REASON FOR EXAM: Poor wound healing bilaterally. COMMENTS ON THE RIGHT: Triphasic waveforms are seen proximally. Monophasic waveforms are seen distally. No significant velocity gradients are identified. Patent the right SFA stent. Findings are consistent with normal perfusion. Findings are consistent with the ability to heal distal wounds. Distal monophasic wave flow most likely due to wounds COMMENTS ON THE LEFT: Biphasic waveforms are seen proximally. Triphasic waveforms are seen distally. No significant velocity gradients are identified. No focal significant plaque is identified. Findings are consistent with normal perfusion. Findings are consistent with the ability to heal distal wounds. IMPRESSION: RIGHT: Patent right SFA stent. No evidence of significant compromise flow.. LEFT:Essentially normal arterial flow.
[2017-01-03] MEDS: NOVOLOG SUB-Q SCH ×4 (08:36→22:00)
--- NOTE | 2017-01-03 09:07 | Progress Note ---
Assessment and Plan - Patient Problems (1) Cellulitis of heel, right Current Visit: No Status: Acute Plan to address problem: Continue antibiotics but patient is concerned about allergic reaction and await infectious disease input (2) Osteomyelitis of ankle or foot Current Visit: No Status: Acute (3) PAD (peripheral artery disease) Current Visit: No Status: Acute Plan to address problem: Await vascular surgery to review and see if there is a possibility of an arteriogram and intervention (4) Metabolic syndrome Current Visit: No Status: Acute (5) Diabetes Current Visit: No Status: Acute Qualifiers: Diabetes mellitus type: type 2 Diabetes mellitus complication status: with skin complications (6) DVT prophylaxis Current Visit: No Status: Acute (7) ARF (acute renal failure) Current Visit: No Status: Acute Subjective Date of service: 01/03/17 Principal diagnosis: diabetic foot ulcer Interval history: Patient basically admitted with cellulitis and diabetic foot ulcer and possible vascular compromise Objective - Constitutional Vitals: Vital Signs - 12hr 01/02/17 01/03/17 01/03/17 22:00 02:00 04:47 Temperature 97.8 F Pulse Rate 76 69 Respiratory 20 18 Rate Blood Pressure 165/71 O2 Sat by Pulse 96 Oximetry 01/03/17 07:36 Temperature 97.7 F Pulse Rate 69 Respiratory 18 Rate Blood Pressure 182/86 O2 Sat by Pulse 99 Oximetry General appearance: Present: no acute distress - EENT Eyes: PERRL, EOM intact ENT: hearing intact - Neck Neck: supple - Respiratory Respiratory effort: normal - Breasts Breasts: deferred - Cardiovascular Rhythm: regular Heart Sounds: Present: S1 & S2 Extremity abnormal: edema, other - Gastrointestinal General gastrointestinal: Present: soft, non-tender, non-distended - Genitourinary Female genitourinary: deferred - Integumentary Integumentary: warm, dry - Musculoskeletal Musculoskeletal: right sided weakness - Neurologic Neurologic: CNII-XII intact - Psychiatric Psychiatric: appropriate mood/affect - Labs CBC & Chem 7: 01/03/17 03:52 01/03/17 03:52 Labs: Abnormal lab results 01/02/17 01/02/17 01/02/17 Range/Units 17:34 17:34 18:04 Hgb 9.1 L (10.1-14.3) gm/dl Hct 28.5 L (30.3-42.9) % MCV 77 L (79-97) fl MCH 25 L (28-32) pg RDW 19.8 H (13.2-15.2) % Plt Count 443 H (140-440) K/mm3 Seg Neutrophils % 72.9 H (40.0-70.0) % Seg Neuts % (Manual) (40.0-70.0) % Seg Neutrophils # Man (1.8-7.7) K/mm3 Sodium (137-145) mmol/L BUN 30 H (7-17) mg/dL Creatinine 1.6 H (0.7-1.2) mg/dL Glucose 189 H (65-100) mg/dL POC Glucose 189 H (70-105) 01/02/17 01/03/17 01/03/17 Range/Units 23:37 03:52 03:52 Hgb 9.6 L (10.1-14.3) gm/dl Hct 28.2 L (30.3-42.9) % MCV 76 L (79-97) fl MCH 26 L (28-32) pg RDW 19.1 H (13.2-15.2) % Plt Count 451 H (140-440) K/mm3 Seg Neutrophils % (40.0-70.0) % Seg Neuts % (Manual) 74.0 H (40.0-70.0) % Seg Neutrophils # Man 8.1 H (1.8-7.7) K/mm3 Sodium 135 L (137-145) mmol/L BUN 27 H (7-17) mg/dL Creatinine 1.5 H (0.7-1.2) mg/dL Glucose 173 H (65-100) mg/dL POC Glucose 163 H (70-105) 01/03/17 Range/Units 08:28 Hgb (10.1-14.3) gm/dl Hct (30.3-42.9) % MCV (79-97) fl MCH (28-32) pg RDW (13.2-15.2) % Plt Count (140-440) K/mm3 Seg Neutrophils % (40.0-70.0) % Seg Neuts % (Manual) (40.0-70.0) % Seg Neutrophils # Man (1.8-7.7) K/mm3 Sodium (137-145) mmol/L BUN (7-17) mg/dL Creatinine (0.7-1.2) mg/dL Glucose (65-100) mg/dL POC Glucose 136 H (70-105)
--- NOTE | 2017-01-03 09:49 | Consultation ---
History of Present Illness - Reason for Consult Consult date: 01/03/17 - History of Present Illness This is a 66-year-old female well known to me. She presents today after her wound care doctor believed her right heel ulcer to be worsening in appearance. She is currently undergoing hyperbaric therapy to promote wound healing. She denies fevers, chills, or pain. She states that she has felt well overall. Using a walker or cane she is able to ambulate around for activities of daily living. Most recently during her prior hospitalization, I had performed revascularization on her right SFA and infrapopliteal vessels. Arterial duplex performed yesterday shows monophasic waveforms throughout the right leg. At home she is on aspirin and Plavix for antiplatelet therapy. Past History Past Medical History: other (diabetes, hypertension, PVD, stroke, other ( Metabolic syndrome), PAD sp Angioplasty to RLE) Past Surgical History: Other (hysterectomy, (Lipoma excision, ), Angioplasty to RLE) Social history: , lives with family. denies: smoking, alcohol abuse, prescription drug abuse, IV drug use Family history: diabetes, hypertension Medications and Allergies Allergies Allergy/AdvReac Type Severity Reaction Status Date / Time codeine Allergy Itching Verified 10/24/16 11:37 Sulfa (Sulfonamide Allergy Swelling Verified 10/24/16 11:37 Antibiotics) Home Medications Medication Instructions Recorded Confirmed Last Taken Type Acetaminophen [Acetaminophen 8 650 mg PO Q4H PRN 11/21/16 11/21/16 Unknown History Hour] Ascorbic Acid [Vitamin C] 500 mg PO BID 11/21/16 11/21/16 11/21/16 10:00 History 500 mg Aspirin [Aspirin BABY CHEW TAB] 81 mg PO DAILY 11/21/16 11/21/16 11/21/16 10:00 History Colchicine [Colcrys] 0.6 mg PO BID 11/21/16 11/21/16 11/21/16 10:00 History Doxycycline [Vibramycin CAP] 100 mg PO Q12HR 11/21/16 11/21/16 11/21/16 10:00 History HYDROcodone/APAP 5-325 5 - 325 mg PO Q6H 11/21/16 11/21/16 Unknown History Insulin Aspart [NovoLOG Flexpen] See Protocol SQ ACHS PRN 11/21/16 11/21/16 Unknown History Insulin Detemir [Levemir Flextouch] 15 units SQ Q12H 11/21/16 11/21/16 11/21/16 10:00 History Linaclotide [Linzess] 290 mcg PO QDAY 11/21/16 11/21/16 11/19/16 History 290 mcg Multivitamin Tab W-MINERAL 1 tab PO DAILY 11/21/16 11/21/16 11/21/16 10:00 History Oxybutynin [Ditropan] 5 mg PO DAILY 11/21/16 11/21/16 11/21/16 10:00 History Sennosides/Docusate Sodium [Senna 2 each PO DAILY 11/21/16 11/21/16 11/21/16 10: 00 History S Tablet] Simethicone [Gas Relief] 80 mg PO TID PRN 11/21/16 11/21/16 Unknown History Verapamil ER [Calan SR] 1 cap PO DAILY 11/21/16 11/21/16 11/21/16 10:00 History Atorvastatin Calcium [Lipitor] 10 mg PO DAILY #30 tablet 11/29/16 Unknown Rx Clopidogrel [Plavix] 75 mg PO QDAY #30 tablet 11/29/16 Unknown Rx Clotrimazole 1% [Lotrimin 1%] 1 applic TP BID #1 tube 11/29/16 Unknown Rx Active Meds: Active Medications Acetaminophen (Tylenol) 650 mg PO Q4H PRN PRN Reason: Pain MILD(1-3)/Fever >100.5/SPENCE Ascorbic Acid (Vitamin C) 500 mg PO BID [facility] Last Admin: 01/02/17 23:30 Dose: 500 mg Aspirin (Baby Aspirin) 81 mg PO DAILY [facility] Atorvastatin Calcium (Lipitor) 10 mg PO HS [facility] Bisacodyl (Dulcolax) 10 mg MS QDAY PRN PRN Reason: Constipation unrelieved by MOM Clopidogrel Bisulfate (Plavix) 75 mg PO QDAY [facility] Clotrimazole (Lotrimin) 1 applic TP BID [facility] Last Admin: 01/03/17 01:18 Dose: 1 applic Colchicine (Colcrys) 0.6 mg PO BID [facility] Last Admin: 01/02/17 23:30 Dose: 0.6 mg Dextrose (D50w (25gm) Syringe) 50 ml IV PRN PRN PRN Reason: Hypoglycemia Enoxaparin Sodium (Lovenox) 40 mg SUB-Q QDAY@2200 [facility] Last Admin: 01/02/17 23:30 Dose: 40 mg Piperacillin Sod/Tazobactam Sod (Zosyn/Ns 4.5gm/100ml) 4.5 gm in 100 mls @ 200 mls/hr IV Q8H [facility] PRN Reason: Protocol Last Admin: 01/03/17 04:54 Dose: 200 mls/hr Vancomycin HCl 1,750 mg/ (Sodium Chloride) 517.5 mls @ 258.75 mls/hr IV Q24H [facility] Sodium Chloride (Nacl 0.45% 1000 Ml) 1,000 mls @ 100 mls/hr IV DIRECT [facility] Last Admin: 01/03/17 04:55 Dose: 100 mls/hr Insulin Aspart (Novolog) 0 units SUB-Q ACHS [facility] PRN Reason: Protocol Last Admin: 01/03/17 08:36 Dose: Not Given Insulin Detemir (Levemir) 15 units SUB-Q Q12HR [facility] Last Admin: 01/02/17 23:30 Dose: 15 units Magnesium Hydroxide (Milk Of Magnesia) 30 ml PO Q4H PRN PRN Reason: Constipation Miscellaneous Medication (Linaclotide [Linzess]) 290 mcg PO QDAY [facility] Morphine Sulfate (Morphine) 4 mg IV Q4H PRN PRN Reason: Pain , Severe (7-10) Last Admin: 01/03/17 04:55 Dose: 4 mg Multivitamins/Minerals (Theragran-M Tab) 1 each PO QDAY [facility] Ondansetron HCl (Zofran) 4 mg IV Q8H PRN PRN Reason: N/V unrelieved by Reglan Oxybutynin Chloride (Ditropan) 5 mg PO DAILY [facility] Oxycodone/Acetaminophen (Percocet 5/325) 1 tab PO Q6H PRN PRN Reason: Pain, Moderate (4-6) Last Admin: 01/03/17 01:17 Dose: 1 tab Senna/Docusate Sodium (Senokot S) 2 tab PO DAILY [facility] Simethicone (Mylicon) 80 mg PO TID PRN PRN Reason: Gas pain Vancomycin HCl (Vancomycin Pharmacy To Dose) 1 each IV PKCONSULT [facility] PRN Reason: Protocol Verapamil HCl (Calan Sr) 240 mg PO DAILY [facility] Exam - Constitutional Vitals: Temp Pulse Resp BP Pulse Ox 97.7 F 69 18 182/86 99 01/03/17 07:36 01/03/17 07:36 01/03/17 07:36 01/03/17 07:36 01/03/17 07:36 General appearance: Present: no acute distress - EENT Eyes: Present: PERRL ENT: hearing intact, clear oral mucosa - Neck Neck: Present: supple, normal ROM - Respiratory Respiratory effort: normal - Extremities Extremities: normal temperature, abnormal (there is a large right lateral heel ulcer approximately 2-3 cm in diameter with granulation tissue at the base and tiny foci of eschar peripherally.) Extremity abnormal: edema Results - Labs CBC & Chem 7: 01/03/17 03:52 01/03/17 03:52 Labs: Abnormal lab results 01/02/17 01/02/17 01/02/17 Range/Units 17:34 17:34 18:04 Hgb 9.1 L (10.1-14.3) gm/dl Hct 28.5 L (30.3-42.9) % MCV 77 L (79-97) fl MCH 25 L (28-32) pg RDW 19.8 H (13.2-15.2) % Plt Count 443 H (140-440) K/mm3 Seg Neutrophils % 72.9 H (40.0-70.0) % Seg Neuts % (Manual) (40.0-70.0) % Seg Neutrophils # Man (1.8-7.7) K/mm3 Sodium (137-145) mmol/L BUN 30 H (7-17) mg/dL Creatinine 1.6 H (0.7-1.2) mg/dL Glucose 189 H (65-100) mg/dL POC Glucose 189 H (70-105) 01/02/17 01/03/17 01/03/17 Range/Units 23:37 03:52 03:52 Hgb 9.6 L (10.1-14.3) gm/dl Hct 28.2 L (30.3-42.9) % MCV 76 L (79-97) fl MCH 26 L (28-32) pg RDW 19.1 H (13.2-15.2) % Plt Count 451 H (140-440) K/mm3 Seg Neutrophils % (40.0-70.0) % Seg Neuts % (Manual) 74.0 H (40.0-70.0) % Seg Neutrophils # Man 8.1 H (1.8-7.7) K/mm3 Sodium 135 L (137-145) mmol/L BUN 27 H (7-17) mg/dL Creatinine 1.5 H (0.7-1.2) mg/dL Glucose 173 H (65-100) mg/dL POC Glucose 163 H (70-105) 01/03/ Range/Units 08:28 Hgb (10.1-14.3) gm/dl Hct (30.3-42.9) % MCV (79-97) fl MCH (28-32) pg RDW (13.2-15.2) % Plt Count (140-440) K/mm3 Seg Neutrophils % (40.0-70.0) % Seg Neuts % (Manual) (40.0-70.0) % Seg Neutrophils # Man (1.8-7.7) K/mm3 Sodium (137-145) mmol/L BUN (7-17) mg/dL Creatinine (0.7-1.2) mg/dL Glucose (65-100) mg/dL POC Glucose 136 H (70-105) - Imaging and Cardiology Venous US: report reviewed, image reviewed Assessment and Plan In comparison to photographs from her prior admission, I believe her wound actually appears slightly improved in appearance. Additionally, the patient's , who takes care of the wound on a daily basis states that it is improving in appearance as well. She does have a palpable right posterior tibial pulse, and the right foot is warm. She reports no pain. I suspect that this may ultimately be a local wound care issue. However, I will order GEOVANNI/PVR testing to ensure that perfusion is adequate to the foot and toes.
[2017-01-03] MEDS ORDERED: MULTIVITAMIN PO SCH (10:00)
[2017-01-03] MEDS ORDERED: [UNRECOGNIZED DRUG - OTHER] PO SCH (10:00)
[2017-01-03] MEDS ORDERED: NON-FORMULARY (Linaclotide [Linzess] 290 MCG) PO SCH (10:00)
[2017-01-03] MEDS: PLAVIX PO SCH (10:58)
[2017-01-03] MEDS: THERAGRAN-M Tab PO SCH (10:58)
[2017-01-03] MEDS: SENOKOT S PO SCH (10:58)
[2017-01-03] MEDS: DITROPAN PO SCH (10:59)
[2017-01-03] MEDS: VITAMIN C PO SCH ×2 (10:59→23:50)
[2017-01-03] MEDS: COLCRYS PO SCH ×2 (10:59→23:50)
[2017-01-03] MEDS: BABY ASPIRIN PO SCH (10:59)
[2017-01-03] MEDS: LEVEMIR SUB-Q SCH ×2 (11:03→23:50)
[2017-01-03] MEDS: CALAN SR PO SCH (12:23)
--- NOTE | 2017-01-03 12:37 | Consultation ---
History of Present Illness - Reason for Consult Consult date: 01/03/17 leg cellulitis Requesting physician: INSÉ BLANKENSHIP - History of Present Illness 66-year-old female with history of HTN, DM, Obesity, CVA with RHP, chronic right heel ulcer and PVD s/p revacularization several times with a recent right SFA and infrapopliteal vessels, sees Dr Peres; admitted on due to worsening right heel ulcer. Wound has been non healing for several months and lately draining foul-smelling discharge. She reports she developed the wound while she was admitted to admitted at a [facility] for 2 weeks back in April 2016. She is currently undergoing hyperbaric therapy to promote wound healing. She denies fevers, chills, N/V/D. In the emergency room, temperature was 97.7, heart rate 79, respiration 25, blood pressure 148/90. Initial white count 10.6. Hemoglobin 9.1. Creatinine 1.6. Arterial duplex performed yesterday shows monophasic waveforms throughout the right leg and patent right SFA stent. Microbiology: none Current Antimicrobials: Zosyn Vancomycin Previous Antimicrobials: Past History Past Medical History: other (diabetes, hypertension, PVD, stroke, other ( Metabolic syndrome), PAD sp Angioplasty to RLE) Past Surgical History: Other (hysterectomy, (Lipoma excision, ), Angioplasty to RLE) Social history: , lives with family. denies: smoking, alcohol abuse, prescription drug abuse, IV drug use Family history: diabetes, hypertension Medications and Allergies Allergies Allergy/AdvReac Type Severity Reaction Status Date / Time codeine Allergy Itching Verified 10/24/16 11:37 Sulfa (Sulfonamide Allergy Swelling Verified 10/24/16 11:37 Antibiotics) Home Medications Medication Instructions Recorded Confirmed Last Taken Type Acetaminophen [Acetaminophen 8 650 mg PO Q4H PRN 11/21/16 11/21/16 Unknown History Hour] Ascorbic Acid [Vitamin C] 500 mg PO BID 11/21/16 11/21/16 11/21/16 10:00 History 500 mg Aspirin [Aspirin BABY CHEW TAB] 81 mg PO DAILY 11/21/16 11/21/16 11/21/16 10:00 History Colchicine [Colcrys] 0.6 mg PO BID 11/21/16 11/21/16 11/21/16 10:00 History Doxycycline [Vibramycin CAP] 100 mg PO Q12HR 11/21/16 11/21/16 11/21/16 10:00 History HYDROcodone/APAP 5-325 5 - 325 mg PO Q6H 11/21/16 11/21/16 Unknown History Insulin Aspart [NovoLOG Flexpen] See Protocol SQ ACHS PRN 11/21/16 11/21/16 Unknown History Insulin Detemir [Levemir Flextouch] 15 units SQ Q12H 11/21/16 11/21/16 11/21/16 10:00 History Linaclotide [Linzess] 290 mcg PO QDAY 11/21/16 11/21/16 11/19/16 History 290 mcg Multivitamin Tab W-MINERAL 1 tab PO DAILY 11/21/16 11/21/16 11/21/16 10:00 History Oxybutynin [Ditropan] 5 mg PO DAILY 11/21/16 11/21/16 11/21/16 10:00 History Sennosides/Docusate Sodium [Senna 2 each PO DAILY 11/21/16 11/21/16 11/21/16 10: 00 History S Tablet] Simethicone [Gas Relief] 80 mg PO TID PRN 11/21/16 11/21/16 Unknown History Verapamil ER [Calan SR] 1 cap PO DAILY 11/21/16 11/21/16 11/21/16 10:00 History Atorvastatin Calcium [Lipitor] 10 mg PO DAILY #30 tablet 11/29/16 Unknown Rx Clopidogrel [Plavix] 75 mg PO QDAY #30 tablet 11/29/16 Unknown Rx Clotrimazole 1% [Lotrimin 1%] 1 applic TP BID #1 tube 11/29/16 Unknown Rx Active Meds: Active Medications Acetaminophen (Tylenol) 650 mg PO Q4H PRN PRN Reason: Pain MILD(1-3)/Fever >100.5/SPENCE Ascorbic Acid (Vitamin C) 500 mg PO BID [facility] Last Admin: 01/03/17 10:59 Dose: 500 mg Aspirin (Baby Aspirin) 81 mg PO DAILY [facility] Last Admin: 01/03/17 10:59 Dose: 81 mg Atorvastatin Calcium (Lipitor) 10 mg PO HS [facility] Bisacodyl (Dulcolax) 10 mg MO QDAY PRN PRN Reason: Constipation unrelieved by MOM Clopidogrel Bisulfate (Plavix) 75 mg PO QDAY [facility] Last Admin: 01/03/17 10:58 Dose: 75 mg Clotrimazole (Lotrimin) 1 applic TP BID [facility] Last Admin: 01/03/17 01:18 Dose: 1 applic Colchicine (Colcrys) 0.6 mg PO BID [facility] Last Admin: 01/03/17 10:59 Dose: 0.6 mg Dextrose (D50w (25gm) Syringe) 50 ml IV PRN PRN PRN Reason: Hypoglycemia Enoxaparin Sodium (Lovenox) 40 mg SUB-Q QDAY@2200 [facility] Last Admin: 01/02/17 23:30 Dose: 40 mg Vancomycin HCl 1,750 mg/ (Sodium Chloride) 517.5 mls @ 258.75 mls/hr IV Q24H [facility] Sodium Chloride (Nacl 0.45% 1000 Ml) 1,000 mls @ 100 mls/hr IV DIRECT [facility] Last Admin: 01/03/17 04:55 Dose: 100 mls/hr Piperacillin Sod/Tazobactam Sod (Zosyn/Ns 4.5gm/100ml) 4.5 gm in 100 mls @ 200 mls/hr IV Q8HR [facility] PRN Reason: Protocol Insulin Aspart (Novolog) 0 units SUB-Q ACHS [facility] PRN Reason: Protocol Last Admin: 01/03/17 08:36 Dose: Not Given Insulin Detemir (Levemir) 15 units SUB-Q Q12HR [facility] Last Admin: 01/03/17 11:03 Dose: Not Given Magnesium Hydroxide (Milk Of Magnesia) 30 ml PO Q4H PRN PRN Reason: Constipation Miscellaneous Medication (Linaclotide [Linzess]) 290 mcg PO QDAY [facility] Morphine Sulfate (Morphine) 4 mg IV Q4H PRN PRN Reason: Pain , Severe (7-10) Last Admin: 01/03/17 04:55 Dose: 4 mg Multivitamins/Minerals (Theragran-M Tab) 1 each PO QDAY [facility] Last Admin: 01/03/17 10:58 Dose: 1 each Ondansetron HCl (Zofran) 4 mg IV Q8H PRN PRN Reason: N/V unrelieved by Reglan Oxybutynin Chloride (Ditropan) 5 mg PO DAILY [facility] Last Admin: 01/03/17 10:59 Dose: 5 mg Oxycodone/Acetaminophen (Percocet 5/325) 1 tab PO Q6H PRN PRN Reason: Pain, Moderate (4-6) Last Admin: 01/03/17 10:59 Dose: 1 tab Senna/Docusate Sodium (Senokot S) 2 tab PO DAILY [facility] Last Admin: 01/03/17 10:58 Dose: 2 tab Simethicone (Mylicon) 80 mg PO TID PRN PRN Reason: Gas pain Vancomycin HCl (Vancomycin Pharmacy To Dose) 1 each IV PKCONSULT [facility] PRN Reason: Protocol Verapamil HCl (Calan Sr) 240 mg PO DAILY [facility] Last Admin: 01/03/17 12:23 Dose: 240 mg Review of Systems All systems: negative (as per HPI rest ROS negative) Physical Examination - Physical Exam Narrative exam: General appearance: Alert in NAD, conversant Eyes: anicteric sclerae, moist conjunctivae; no lid-lag; PERRLA HENT: Atraumatic; oropharynx clear with moist mucous membranes and no mucosal ulcerations/no oral thrush; normal hard and soft palate. Normal external ears. Neck: Trachea midline; supple, no thyromegaly or lymphadenopathy Lungs: CTA, with normal respiratory effort and no intercostal retractions CV: RRR, no murmurs Abdomen: Soft, non-tender; no masses or hepatosplenomegaly Extremities: No peripheral edema or extremity lymphadenopathy Skin: right calf chronic indurated edema and mild erythema, right heel with ulcer with 90%slough and cindy wound thickness Psych: Appropriate affect, alert and oriented to person, place and time. Neuro: alert and oriented x 3. Moving all extermities Lines: No CVL / PICC - Constitutional Vitals: Vital Signs Temp Pulse Resp BP Pulse Ox 97.7 F 69 18 182/86 99 01/03/17 07:36 01/03/17 07:36 01/03/17 07:36 01/03/17 07:36 01/03/17 07:36 Temperature -Last 24 Hours Temperature 97.7 F Temperature 97.8 F Temperature 98.6 F Temperature 98.2 F Results - Labs CBC & Chem 7: 01/03/17 03:52 01/03/17 03:52 Labs: Abnormal lab results 01/02/17 01/02/1717 Range/Units 17:34 17:34 18:04 Hgb 9.1 L (10.1-14.3) gm/dl Hct 28.5 L (30.3-42.9) % MCV 77 L (79-97) fl MCH 25 L (28-32) pg RDW 19.8 H (13.2-15.2) % Plt Count 443 H (140-440) K/mm3 Seg Neutrophils % 72.9 H (40.0-70.0) % Seg Neuts % (Manual) (40.0-70.0) % Seg Neutrophils # Man (1.8-7.7) K/mm3 Sodium (137-145) mmol/L BUN 30 H (7-17) mg/dL Creatinine 1.6 H (0.7-1.2) mg/dL Glucose 189 H (65-100) mg/dL POC Glucose 189 H (70-105) 01/02/17 01/03/17 01/03/17 Range/Units 23:37 03:52 03:52 Hgb 9.6 L (10.1-14.3) gm/dl Hct 28.2 L (30.3-42.9) % MCV 76 L (79-97) fl MCH 26 L (28-32) pg RDW 19.1 H (13.2-15.2) % Plt Count 451 H (140-440) K/mm3 Seg Neutrophils % (40.0-70.0) % Seg Neuts % (Manual) 74.0 H (40.0-70.0) % Seg Neutrophils # Man 8.1 H (1.8-7.7) K/mm3 Sodium 135 L (137-145) mmol/L BUN 27 H (7-17) mg/dL Creatinine 1.5 H (0.7-1.2) mg/dL Glucose 173 H (65-100) mg/dL POC Glucose 163 H (70-105) 01/03/17 Range/Units 08:28 Hgb (10.1-14.3) gm/dl Hct (30.3-42.9) % MCV (79-97) fl MCH (28-32) pg RDW (13.2-15.2) % Plt Count (140-440) K/mm3 Seg Neutrophils % (40.0-70.0) % Seg Neuts % (Manual) (40.0-70.0) % Seg Neutrophils # Man (1.8-7.7) K/mm3 Sodium (137-145) mmol/L BUN (7-17) mg/dL Creatinine (0.7-1.2) mg/dL Glucose (65-100) mg/dL POC Glucose 136 H (70-105) Assessment and Plan Assessment: 1) Right heel non healing wound: decubitus +/-venous insuficiency - likely infected - mild 2) Right leg cellulitis: mild 3) PVD s/p revacularization several times with a recent right SFA and infrapopliteal vessels, sees Dr Peres. Arterial duplex shows monophasic waveforms throughout the right leg and patent right SFA stent. 4) HTN 5) Obesity Plan: -obtain C-reactive protein (CRP) -continue vanco and zosyn -obtain wound cultures -XR heel -upon discharge will do oral antibiotics Thank you Dr Blankenship for your consultation, will follow up with you. Lisa Tatum MD Infectious Diseases Specialist [facility] M [phone] O [phone]
--- NOTE | 2017-01-03 13:30 | Progress Note ---
Assessment and Plan Assessment and plan: Infected right leg ulcer - Patient is on IV vancomycin and Zosyn, follow his culture results - ID consulted Peripheral vascular disease - Vascular surgery consulted, will follow recommendations Hypertension - Uncontrolled - We will add hydralazine Chronic kidney disease - We will follow BMP DVT prophylaxis - Heparin Disposition - Continue inpatient care, possible discharge within 1-2 days. History Interval history: Patient was seen and evaluated this morning, patient didn't have any complaints. Hospitalist Physical - Physical exam Narrative exam: Not in cardiopulmonary distress. The patient appeared well nourished and normally developed. Vital signs as documented. Head exam is unremarkable. No scleral icterus . Neck is without jugular venous distension, thyromegaly, or carotid bruits. Lungs are clear to auscultation. Cardiac exam reveals regular rate and Rhythm. First and second heart sounds normal. No murmurs, rubs or gallops. Abdominal exam reveals normal bowel sounds, no masses, no organomegaly and no aortic enlargement. Extremities right leg ulcer. CASEWORK SPECIALIST: Alert and oriented 3. No focal weakness. - Constitutional Vitals: Temp Pulse Resp BP Pulse Ox 98.7 F 69 20 161/67 100 01/03/17 11:56 01/03/17 11:56 01/03/17 11:56 01/03/17 11:56 01/03/17 11:56 General appearance: Present: no acute distress Results - Labs CBC & Chem 7: 01/03/17 03:52 01/03/17 03:52 Labs: Laboratory Last Values WBC 10.9 K/mm3 (4.5-11.0) 01/03/17 03:52 RBC 3.69 M/mm3 (3.65-5.03) 01/03/17 03:52 Hgb 9.6 gm/dl (10.1-14.3) L 01/03/17 03:52 Hct 28.2 % (30.3-42.9) L 01/03/17 03:52 MCV 76 fl (79-97) L 01/03/17 03:52 MCH 26 pg (28-32) L 01/03/17 03:52 MCHC 34 % (30-34) 01/03/17 03:52 RDW 19.1 % (13.2-15.2) H 01/03/17 03:52 Plt Count 451 K/mm3 (140-440) H 01/03/17 03:52 Lymph % (Auto) 18.6 % (13.4-35.0) 01/02/17 17:34 [place] % (Auto) 6.1 % (0.0-7.3) 01/02/17 17:34 Eos % (Auto) 2.1 % (0.0-4.3) 01/02/17 17:34 Baso % (Auto) 0.3 % (0.0-1.8) 01/02/17 17:34 Lymph # 2.0 K/mm3 (1.2-5.4) 01/02/17 17:34 [place] # 0.6 K/mm3 (0.0-0.8) 01/02/17 17:34 Eos # 0.2 K/mm3 (0.0-0.4) 01/02/17 17:34 Baso # 0.0 K/mm3 (0.0-0.1) 01/02/17 17:34 Add Manual Diff Complete 01/03/17 03:52 Total Counted 100 01/03/17 03:52 Seg Neutrophils % 72.9 % (40.0-70.0) H 01/02/17 17:34 Seg Neuts % (Manual) 74.0 % (40.0-70.0) H 01/03/17 03:52 Band Neutrophils % 7.0 % 01/03/17 03:52 Lymphocytes % (Manual) 14.0 % (13.4-35.0) 01/03/17 03:52 Reactive Lymphs % (Man) 0 % 01/03/17 03:52 Monocytes % (Manual) 1.0 % (0.0-7.3) 01/03/17 03:52 Eosinophils % (Manual) 2.0 % (0.0-4.3) 01/03/17 03:52 Basophils % (Manual) 0 % (0.0-1.8) 01/03/17 03:52 Metamyelocytes % 2.0 % 01/03/17 03:52 Myelocytes % 0 % 01/03/17 03:52 Promyelocytes % 0 % 01/03/17 03:52 Blast Cells % 0 % 01/03/17 03:52 Nucleated RBC % Not Reportable 01/03/17 03:52 Seg Neutrophils # 7.7 K/mm3 (1.8-7.7) 01/02/17 17:34 Seg Neutrophils # Man 8.1 K/mm3 (1.8-7.7) H 01/03/17 03:52 Band Neutrophils # 0.8 K/mm3 01/03/17 03:52 Lymphocytes # (Manual) 1.5 K/mm3 (1.2-5.4) 01/03/17 03:52 Abs React Lymphs (Man) 0.0 K/mm3 01/03/17 03:52 Monocytes # (Manual) 0.1 K/mm3 (0.0-0.8) 01/03/17 03:52 Eosinophils # (Manual) 0.2 K/mm3 (0.0-0.4) 01/03/17 03:52 Basophils # (Manual) 0.0 K/mm3 (0.0-0.1) 01/03/17 03:52 Metamyelocytes # 0.2 K/mm3 01/03/17 03:52 Myelocytes # 0.0 K/mm3 01/03/17 03:52 Promyelocytes # 0.0 K/mm3 01/03/17 03:52 Blast Cells # 0.0 K/mm3 01/03/17 03:52 WBC Morphology Not Reportable 01/03/17 03:52 Hypersegmented Neuts Not Reportable 01/03/17 03:52 Hyposegmented Neuts Not Reportable 01/03/17 03:52 Hypogranular Neuts Not Reportable 01/03/17 03:52 Smudge Cells Not Reportable 01/03/17 03:52 Toxic Granulation Not Reportable 01/03/17 03:52 Toxic Vacuolation Not Reportable 01/03/17 03:52 Dohle Bodies Not Reportable 01/03/17 03:52 Pelger-Huet Anomaly Not Reportable 01/03/17 03:52 Vilma Rods Not Reportable 01/03/17 03:52 Platelet Estimate Appears normal 01/03/17 03:52 Clumped Platelets Not Reportable 01/03/17 03:52 Plt Clumps, EDTA Not Reportable 01/03/17 03:52 Large Platelets Not Reportable 01/03/17 03:52 Giant Platelets Not Reportable 01/03/17 03:52 Platelet Satelliting Not Reportable 01/03/17 03:52 Plt Morphology Comment Not Reportable 01/03/17 03:52 RBC Morphology Not Reportable 01/03/17 03:52 Dimorphic RBCs Not Reportable 01/03/17 03:52 Polychromasia Not Reportable 01/03/17 03:52 Hypochromasia Not Reportable 01/03/17 03:52 Poikilocytosis Not Reportable 01/03/17 03:52 Anisocytosis Rare 01/03/17 03:52 Microcytosis Not Reportable 01/03/17 03:52 Macrocytosis Not Reportable 01/03/17 03:52 Spherocytes Not Reportable 01/03/17 03:52 Pappenheimer Bodies Not Reportable 01/03/17 03:52 Sickle Cells Not Reportable 01/03/17 03:52 Target Cells Not Reportable 01/03/17 03:52 Tear Drop Cells Not Reportable 01/03/17 03:52 Ovalocytes Not Reportable 01/03/17 03:52 Helmet Cells Not Reportable 01/03/17 03:52 [place] Bodies Not Reportable 01/03/17 03:52 [place] Rings Not Reportable 01/03/17 03:52 Moni Cells Not Reportable 01/03/17 03:52 Bite Cells Not Reportable 01/03/17 03:52 Crenated Cell Not Reportable 01/03/17 03:52 Elliptocytes Not Reportable 01/03/17 03:52 Acanthocytes (Spur) Not Reportable 01/03/17 03:52 Rouleaux Not Reportable 01/03/17 03:52 Hemoglobin C Crystals Not Reportable 01/03/17 03:52 Schistocytes Not Reportable 01/03/17 03:52 Malaria parasites Not Reportable 01/03/17 03:52 Danny Bodies Not Reportable 01/03/17 03:52 Hem Pathologist Commnt No 01/03/17 03:52 Sodium 135 mmol/L (137-145) L 01/03/17 03:52 Potassium 4.1 mmol/L (3.6-5.0) 01/03/17 03:52 Chloride 98.9 mmol/L (98-107) 01/03/17 03:52 Carbon Dioxide 23 mmol/L (22-30) 01/03/17 03:52 Anion Gap 17 mmol/L 01/03/17 03:52 BUN 27 mg/dL (7-17) H 01/03/17 03:52 Creatinine 1.5 mg/dL (0.7-1.2) H 01/03/17 03:52 Estimated GFR 42 ml/min 01/03/17 03:52 BUN/Creatinine Ratio 18 % 01/03/17 03:52 Glucose 173 mg/dL (65-100) H 01/03/17 03:52 POC Glucose 136 (70-105) H 01/03/17 08:28 Calcium 8.7 mg/dL (8.4-10.2) 01/03/17 03:52
[2017-01-03] MEDS: APRESOLINE PO SCH ×2 (14:20→21:00)
--- NOTE | 2017-01-03 14:58 | XRay Report ---
Right calcaneus 2 views. History: Pain and swelling. Findings: Osteolytic destruction is seen along the posterior plantar surface of the calcaneus with associated soft tissue swelling. No additional destructive lesions are seen. 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
[2017-01-03] MEDS ORDERED: VANCOMYCIN 1,750 MG in NACL 0.9% 500 ML 500 ML IV SCH (20:00)
[2017-01-03] MEDS: LOVENOX SUB-Q SCH (23:50)
[2017-01-04] MEDS: NACL 0.45% 1000 ML 1,000 ML IV SCH (05:18)
[2017-01-04] MEDS: ZOSYN/NS 4.5GM/100ML 4.5 GM/100 ML VIAL IV SCH (05:19)
[2017-01-04 05:49] LABS: Calcium 7.3 mg/dL (8.4-10.2); Chloride 93.8 mmol/L (98-107); Potassium 3.6 mmol/L (3.6-5.0)
--- NOTE | 2017-01-04 07:31 | Progress Note ---
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 Absent: rub, click - Extremities Extremity abnormal: edema (right foot, skin changes in the right leg consistent with venous stasis. interval decrease in r ankle erythema Peripheral Pulses: within normal limits - Abdominal General gastrointestinal: Present: soft, non-tender, non-distended, normal bowel sounds Female genitourinary: Present: normal - Integumentary Integumentary: Present: clear - Musculoskeletal Musculoskeletal: right sided weakness (chronic) - Psychiatric Psychiatric: appropriate mood/affect, intact judgment & insight - Neurologic Neurologic: CNII-XII intact, moves all extremities - Constitutional Vitals: Temp Pulse Resp BP Pulse Ox 98.8 F 77 18 150/70 97 01/04/17 04:24 01/04/17 04:24 01/04/17 04:24 01/04/17 04:24 01/04/17 04:24 General appearance: Present: no acute distress Results - Labs CBC & Chem 7: 01/03/17 03:52 01/04/17 03:59 Labs: Laboratory Last Values WBC 10.9 K/mm3 (4.5-11.0) 01/03/17 03:52 RBC 3.69 M/mm3 (3.65-5.03) 01/03/17 03:52 Hgb 9.6 gm/dl (10.1-14.3) L 01/03/17 03:52 Hct 28.2 % (30.3-42.9) L 01/03/17 03:52 MCV 76 fl (79-97) L 01/03/17 03:52 MCH 26 pg (28-32) L 01/03/17 03:52 MCHC 34 % (30-34) 01/03/17 03:52 RDW 19.1 % (13.2-15.2) H 01/03/17 03:52 Plt Count 451 K/mm3 (140-440) H 01/03/17 03:52 Lymph % (Auto) 18.6 % (13.4-35.0) 01/02/17 17:34 [place] % (Auto) 6.1 % (0.0-7.3) 01/02/17 17:34 Eos % (Auto) 2.1 % (0.0-4.3) 01/02/17 17:34 Baso % (Auto) 0.3 % (0.0-1.8) 01/02/17 17:34 Lymph # 2.0 K/mm3 (1.2-5.4) 01/02/17 17:34 [place] # 0.6 K/mm3 (0.0-0.8) 01/02/17 17:34 Eos # 0.2 K/mm3 (0.0-0.4) 01/02/17 17:34 Baso # 0.0 K/mm3 (0.0-0.1) 01/02/17 17:34 Add Manual Diff Complete 01/03/17 03:52 Total Counted 100 01/03/17 03:52 Seg Neutrophils % 72.9 % (40.0-70.0) H 01/02/17 17:34 Seg Neuts % (Manual) 74.0 % (40.0-70.0) H 01/03/17 03:52 Band Neutrophils % 7.0 % 01/03/17 03:52 Lymphocytes % (Manual) 14.0 % (13.4-35.0) 01/03/17 03:52 Reactive Lymphs % (Man) 0 % 01/03/17 03:52 Monocytes % (Manual) 1.0 % (0.0-7.3) 01/03/17 03:52 Eosinophils % (Manual) 2.0 % (0.0-4.3) 01/03/17 03:52 Basophils % (Manual) 0 % (0.0-1.8) 01/03/17 03:52 Metamyelocytes % 2.0 % 01/03/17 03:52 Myelocytes % 0 % 01/03/17 03:52 Promyelocytes % 0 % 01/03/17 03:52 Blast Cells % 0 % 01/03/17 03:52 Nucleated RBC % Not Reportable 01/03/17 03:52 Seg Neutrophils # 7.7 K/mm3 (1.8-7.7) 01/02/17 17:34 Seg Neutrophils # Man 8.1 K/mm3 (1.8-7.7) H 01/03/17 03:52 Band Neutrophils # 0.8 K/mm3 01/03/17 03:52 Lymphocytes # (Manual) 1.5 K/mm3 (1.2-5.4) 01/03/17 03:52 Abs React Lymphs (Man) 0.0 K/mm3 01/03/17 03:52 Monocytes # (Manual) 0.1 K/mm3 (0.0-0.8) 01/03/17 03:52 Eosinophils # (Manual) 0.2 K/mm3 (0.0-0.4) 01/03/17 03:52 Basophils # (Manual) 0.0 K/mm3 (0.0-0.1) 01/03/17 03:52 Metamyelocytes # 0.2 K/mm3 01/03/17 03:52 Myelocytes # 0.0 K/mm3 01/03/17 03:52 Promyelocytes # 0.0 K/mm3 01/03/17 03:52 Blast Cells # 0.0 K/mm3 01/03/17 03:52 WBC Morphology Not Reportable 01/03/17 03:52 Hypersegmented Neuts Not Reportable 01/03/17 03:52 Hyposegmented Neuts Not Reportable 01/03/17 03:52 Hypogranular Neuts Not Reportable 01/03/17 03:52 Smudge Cells Not Reportable 01/03/17 03:52 Toxic Granulation Not Reportable 01/03/17 03:52 Toxic Vacuolation Not Reportable 01/03/17 03:52 Dohle Bodies Not Reportable 01/03/17 03:52 Pelger-Huet Anomaly Not Reportable 01/03/17 03:52 Vilma Rods Not Reportable 01/03/17 03:52 Platelet Estimate Appears normal 01/03/17 03:52 Clumped Platelets Not Reportable 01/03/17 03:52 Plt Clumps, EDTA Not Reportable 01/03/17 03:52 Large Platelets Not Reportable 01/03/17 03:52 Giant Platelets Not Reportable 01/03/17 03:52 Platelet Satelliting Not Reportable 01/03/17 03:52 Plt Morphology Comment Not Reportable 01/03/17 03:52 RBC Morphology Not Reportable 01/03/17 03:52 Dimorphic RBCs Not Reportable 01/03/17 03:52 Polychromasia Not Reportable 01/03/17 03:52 Hypochromasia Not Reportable 01/03/17 03:52 Poikilocytosis Not Reportable 01/03/17 03:52 Anisocytosis Rare 01/03/17 03:52 Microcytosis Not Reportable 01/03/17 03:52 Macrocytosis Not Reportable 01/03/17 03:52 Spherocytes Not Reportable 01/03/17 03:52 Pappenheimer Bodies Not Reportable 01/03/17 03:52 Sickle Cells Not Reportable 01/03/17 03:52 Target Cells Not Reportable 01/03/17 03:52 Tear Drop Cells Not Reportable 01/03/17 03:52 Ovalocytes Not Reportable 01/03/17 03:52 Helmet Cells Not Reportable 01/03/17 03:52 Lazcano-[place] Bodies Not Reportable 01/03/17 03:52 [place] Rings Not Reportable 01/03/17 03:52 [place] Cells Not Reportable 01/03/17 03:52 Bite Cells Not Reportable 01/03/17 03:52 Crenated Cell Not Reportable 01/03/17 03:52 Elliptocytes Not Reportable 01/03/17 03:52 Acanthocytes (Spur) Not Reportable 01/03/17 03:52 Rouleaux Not Reportable 01/03/17 03:52 Hemoglobin C Crystals Not Reportable 01/03/17 03:52 Schistocytes Not Reportable 01/03/17 03:52 Malaria parasites Not Reportable 01/03/17 03:52 Danny Bodies Not Reportable 01/03/17 03:52 Hem Pathologist Commnt No 01/03/17 03:52 Sodium 127 mmol/L (137-145) L D 01/04/17 03:59 Potassium 3.6 mmol/L (3.6-5.0) 01/04/17 03:59 Chloride 93.8 mmol/L (98-107) L 01/04/17 03:59 Carbon Dioxide 20 mmol/L (22-30) L 01/04/17 03:59 Anion Gap 17 mmol/L 01/04/17 03:59 BUN 19 mg/dL (7-17) H 01/04/17 03:59 Creatinine 1.4 mg/dL (0.7-1.2) H 01/04/17 03:59 Estimated GFR 46 ml/min 01/04/17 03:59 BUN/Creatinine Ratio 14 % 01/04/17 03:59 Glucose 173 mg/dL (65-100) H 01/04/17 03:59 POC Glucose 249 (70-105) H 01/03/17 22:14 Calcium 7.3 mg/dL (8.4-10.2) L D 01/04/17 03:59 C-Reactive Protein 3.10 mg/dL (0.00-1.30) H 01/03/17 15:25
[2017-01-04] MEDS ORDERED: APRESOLINE IV PRN (08:00)
[2017-01-04] MEDS: NOVOLOG SUB-Q SCH ×2 (09:17→13:48)
[2017-01-04] MEDS: CALAN SR PO SCH (10:22)
[2017-01-04] MEDS: THERAGRAN-M Tab PO SCH (10:22)
[2017-01-04] MEDS: VITAMIN C PO SCH (10:23)
[2017-01-04] MEDS: SENOKOT S PO SCH (10:23)
[2017-01-04] MEDS: APRESOLINE PO SCH (10:23)
[2017-01-04] MEDS: BABY ASPIRIN PO SCH (10:23)
[2017-01-04] MEDS: DITROPAN PO SCH (10:23)
[2017-01-04] MEDS: COLCRYS PO SCH (10:23)
[2017-01-04] MEDS: PLAVIX PO SCH (10:23)
--- NOTE | 2017-01-04 10:34 | Progress Note ---
Assessment and Plan GEOVANNI/PVR testing was done. The GEOVANIN on the right is 0.78, indicative of moderate arterial disease. The right great toe waveform is somewhat depressed but still shows evidence of distal perfusion. I believe she is as optimized as possible at the moment for wound healing. At this point management of her wound can be addressed with wound care and continuing hyperbaric oxygen therapy. I would like her to follow-up with me in 1-2 weeks in the office. Subjective Date of service: 01/04/17 Principal diagnosis: diabetic foot ulcer Interval history: Patient seen and consult for a right lower extremity heel wound. She currently has no complaints. There have been no acute changes or events since yesterday. Objective - Exam Narrative Exam: unchanged since yesterday. Please see PE from yesterday for a description of the wound. - Constitutional Vitals: Vital Signs - 12hr 01/04/17 01/04/17 01/04/17 04:24 08:51 10:22 Temperature 98.8 F 98.7 F Pulse Rate 77 71 Respiratory 18 20 Rate Blood Pressure 150/70 171/69 Blood Pressure 171/69 [Left] O2 Sat by Pulse 97 99 Oximetry - Labs CBC & Chem 7: 01/03/17 03:52 01/04/17 03:59 Labs: Abnormal lab results 01/03/17 01/03/17 01/03/17 Range/Units 11:58 15:25 16:12 Sodium (137-145) mmol/L Chloride (98-107) mmol/L Carbon Dioxide (22-30) mmol/L BUN (7-17) mg/dL Creatinine (0.7-1.2) mg/dL Glucose (65-100) mg/dL POC Glucose 152 H 139 H (70-105) Calcium (8.4-10.2) mg/dL C-Reactive Protein 3.10 H (0.00-1.30) mg/dL 01/03/17 01/04/17 Range/Units 22:14 03:59 Sodium 127 L D (137-145) mmol/L Chloride 93.8 L (98-107) mmol/L Carbon Dioxide 20 L (22-30) mmol/L BUN 19 H (7-17) mg/dL Creatinine 1.4 H (0.7-1.2) mg/dL Glucose 173 H (65-100) mg/dL POC Glucose 249 H (70-105) Calcium 7.3 L D (8.4-10.2) mg/dL C-Reactive Protein (0.00-1.30) mg/dL
[2017-01-04] MEDS: LEVEMIR SUB-Q SCH (11:16)
[2017-01-04] MEDS: LOTRIMIN TP SCH (11:17)
--- NOTE | 2017-01-04 11:24 | Discharge Summary ---
Providers - Providers Date of Admission: 01/02/17 13:23 Attending physician: INÉS LEAL MD 01/02/17 15:58 Consult to Physician [CONS] Routine Consulting Provider: AMILCAR CARPIO Reason For Exam: RLE arterial insufficiency Place consult to:: AMILCAR CARPIO Notified:: AMILCAR CARPIO 01/02/17 16:03 Consult to Physician [CONS] Routine Consulting Provider: LAUREN KNOX Reason For Exam: RLE infection Place consult to:: Notified:: Phone number called:: [phone] Was contact made?: Yes If yes, spoke with:: Time called:: 16:17 Comment:: SONJA 01/02/17 16:04 Consult to Physician [CONS] Routine Consulting Provider: SHAAN LAU Reason For Exam: RLE skin infection Place consult to:: Notified:: Was contact made?: Yes If yes, spoke with:: Time called:: 16:14 Comment:: SONJA Primary care physician: DELL BLACK Hospitalization Hospital course: 66F sent from wound care clinic by Dr Lau for RLE cellulitis/infection. She was found to have right heel cellulitis and up to myelitis. She was, managed by infectious disease loss was in the hospital. She received IV antibiotics. She clinically improved. She was also seen by vascular surgery. Who felt that she had been recently revascularized and was optimized for wound healing. She also had acute renal failure which improved with hydration. The patient clinically improved and is to follow-up I wound care clinic where she'll continue to receive hyperbaric treatments and complete antibiotics as an outpatient. 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 Absent: rub, click - Extremities Extremity abnormal: edema (right foot, skin changes in the right leg consistent with venous stasis. interval decrease in r ankle erythema Peripheral Pulses: within normal limits - Abdominal General gastrointestinal: Present: soft, non-tender, non-distended, normal bowel sounds Female genitourinary: Present: normal - Integumentary Integumentary: Present: clear - Musculoskeletal Musculoskeletal: right sided weakness (chronic) - Psychiatric Psychiatric: appropriate mood/affect, intact judgment & insight - Neurologic Neurologic: CNII-XII intact, moves all extremities - Constitutional Vitals: Temp Pulse Resp BP Pulse Ox 98.7 F 71 20 171/69 99 01/04/17 08:51 01/04/17 08:51 01/04/17 08:51 01/04/17 10:22 01/04/17 08:51 Plan Follow up with: DELL BLACK MD [Primary Care Provider] - 7 Days
--- NOTE | 2017-01-04 11:28 | Progress Note ---
Assessment and Plan Assessment: 1) Right heel non healing wound: decubitus +/-venous insuficiency - likely infected 2) Right leg cellulitis and presumed osteomyelitis: -cultures pending. -CRP=3.1 - XR suspicious for calcaneal osteomyelitis 3) PVD s/p revacularization several times with a recent right SFA and infrapopliteal vessels, sees Dr Peres. Arterial duplex shows monophasic waveforms throughout the right leg and patent right SFA stent. 4) HTN 5) Obesity Plan: -obtain foot MRI -Wound care Dr tapia -continue vanco and zosyn for now -obtain wound cultures -pending -if osteomyelitis confirmed will do IV abx Thank you Dr Blankenship for your consultation, will follow up with you. Lisa Tatum MD Infectious Diseases Specialist [facility] ([facility]) M [phone] O [phone] Subjective Date of service: 01/04/17 Principal diagnosis: diabetic foot ulcer Interval history: Feels better, still foot pain, no fever. Microbiology: Wound cx: pending Current Antimicrobials: Zosyn Vancomycin Previous Antimicrobials: Objective - Exam Narrative Exam: General appearance: Alert in NAD, conversant Eyes: anicteric sclerae, moist conjunctivae; no lid-lag; PERRLA HENT: Atraumatic; oropharynx clear with moist mucous membranes and no mucosal ulcerations/no oral thrush; normal hard and soft palate. Normal external ears. Neck: Trachea midline; supple, no thyromegaly or lymphadenopathy Lungs: CTA, with normal respiratory effort and no intercostal retractions CV: RRR, no murmurs Abdomen: Soft, non-tender; no masses or hepatosplenomegaly Extremities: No peripheral edema or extremity lymphadenopathy Skin: right calf chronic indurated edema and mild erythema, right heel with ulcer with 90%slough and cindy wound thickness Psych: Appropriate affect, alert and oriented to person, place and time. Neuro: alert and oriented x 3. Moving all extermities Lines: No CVL / PICC - Constitutional Vitals: Vital Signs Temp Pulse Resp BP Pulse Ox 98.7 F 71 20 171/69 99 01/04/17 08:51 01/04/17 08:51 01/04/17 08:51 01/04/17 10:22 01/04/17 08:51 Temperature -Last 24 Hours Temperature 98.7 F Temperature 98.8 F Temperature 98.4 F Temperature 98.6 F Temperature 98.6 F Temperature 98.7 F - Labs CBC & Chem 7: 01/03/17 03:52 01/04/17 03:59 Labs: Abnormal lab results 01/03/17 01/03/17 01/03/17 Range/Units 11:58 15:25 16:12 Sodium (137-145) mmol/L Chloride (98-107) mmol/L Carbon Dioxide (22-30) mmol/L BUN (7-17) mg/dL Creatinine (0.7-1.2) mg/dL Glucose (65-100) mg/dL POC Glucose 152 H 139 H (70-105) Calcium (8.4-10.2) mg/dL C-Reactive Protein 3.10 H (0.00-1.30) mg/dL 01/03/17 01/04/17 01/04/17 Range/Units 22:14 03:59 08:32 Sodium 127 L D (137-145) mmol/L Chloride 93.8 L (98-107) mmol/L Carbon Dioxide 20 L (22-30) mmol/L BUN 19 H (7-17) mg/dL Creatinine 1.4 H (0.7-1.2) mg/dL Glucose 173 H (65-100) mg/dL POC Glucose 249 H 186 H (70-105) Calcium 7.3 L D (8.4-10.2) mg/dL C-Reactive Protein (0.00-1.30) mg/dL
[2017-01-04 15:52] VITALS: BP 153/70
--- NOTE | 2017-01-04 16:50 | Vascular Lab Report ---
LOWER EXTREMITY ARTERIAL PHYSIOLOGIC STUDY: REASON FOR EXAM: Peripheral arterial disease. COMMENTS ON THE RIGHT: Ankle brachial index is 0.78. This value is abnormal. Toe brachial index is 0.36. This value is abnormal. Wound healing is unlikely. Pulse volume recording at the level of the ankle is abnormal. Exercise testing was not done. COMMENTS ON THE LEFT: Ankle brachial index is 0.96. This value is normal. Toe brachial index is 0.94. This value is normal. Wound healing is likely. Pulse volume recording at the level of the ankle is normal. Exercise testing was not done. IMPRESSION: RIGHT: Mild to moderate peripheral vascular disease LEFT:No hemodynamically significant arterial disease.
--- NOTE | 2017-01-04 18:44 | Magnetic Resonance Report ---
FINAL REPORT PROCEDURE: MR LE NONJOINT RT WO CON MRI right ankle without gadolinium enhancement. TECHNIQUE: Magnetic resonance imaging of the RIGHT ankle was performed using standard pulse sequences. HISTORY: eval for right calcaneal osteomyelitis COMPARISON: No prior studies are available for comparison. FINDINGS: Large amount of abnormal signal visualized in the posterior 3rd of the calcaneus. There appears to be erosion of the cortex and abnormal increased T2 signal, decreased T1 signal in the marrow. No fractures are identified. There is an ulcer visualized in the heel pad posteriorly. There is diffuse subcutaneous edematous change and skin thickening visualized consistent with cellulitis. There is fluid collected in the peroneus tendon sheaths consistent with tenosynovitis. Flexor and extensor tendons appear intact. I suspect there is a small amount of fluid collected directly adjacent to the calcaneus, possibly an abscess. This is difficult to be certain of, the was no IV contrast given. There is an oval lesion visualized in the cuboid. There is a rim of decreased T1 and T2 signal and heterogeneous signal centrally. No edematous changes are seen. This may represent an old bone infarction. Similar changes are seen in the proximal ends of the 4th and 5th metatarsals. Subchondral cyst formation visualized in the opposing surfaces of the cuneiform 1st metatarsal articulation. IMPRESSION: There is evidence of cellulitis as described and also osteomyelitis involving the calcaneus as described. No acute fractures are identified. There may be a small amount of fluid adjacent to the eroded surface of the posterior calcaneus although difficult to be certain of without IV contrast. This could represent marked inflammatory change versus is small abscess. 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 Osteoarthritic changes cuneiform 1st metatarsal articulations with subchondral cyst formation. Tenosynovitis as described
== END 2017-01-04 18:00 | disposition home health service (06) | DRG 602 ==
LOC: UNDOADMIN 12:27 → 2B-ACE 12:27
PROVIDERS: ADMIT Internal Medicine; ATTEND Internal Medicine
DX: L03.115 Cellulitis of right lower limb (principal); N17.0 Acute kidney failure with tubular necrosis; M86.171 Other acute osteomyelitis, right ankle and foot; L97.419 Non-pressure chronic ulcer of right heel and midfoot with unspecified severity; E11.69 Type 2 diabetes mellitus with other specified complication; I73.9 Peripheral vascular disease, unspecified; N18.9 Chronic kidney disease, unspecified; E11.22 Type 2 diabetes mellitus with diabetic chronic kidney disease; I12.9 Hypertensive chronic kidney disease with stage 1 through stage 4 chronic kidney disease, or unspecified chronic kidney disease; E11.621 Type 2 diabetes mellitus with foot ulcer; E88.81 Metabolic syndrome and other insulin resistance; Z68.39 Body mass index [BMI] 39.0-39.9, adult; E66.9 Obesity, unspecified; Z86.73 Personal history of transient ischemic attack (TIA), and cerebral infarction without residual deficits; Z90.710 Acquired absence of both cervix and uterus; Z98.62 Peripheral vascular angioplasty status; Z82.49 Family history of ischemic heart disease and other diseases of the circulatory system; Z83.3 Family history of diabetes mellitus; Z88.2 Allergy status to sulfonamides; Z88.5 Allergy status to narcotic agent; Z79.4 Long term (current) use of insulin; Z79.82 Long term (current) use of aspirin; Z79.899 Other long term (current) drug therapy
CPT/HCPCS: 36415; 80048; 82962; 85007; 85025; 86140; 87076; 87116; 87186; 93922; 93925; A9270-GY; J1650; J1815; J1818; J2270; J2543; J3370; J7040

== ENCOUNTER 2017-01-09 11:28 | Outpatient (CLI) | payer MEDICARE ==
[2017-01-09] MEDS ORDERED: XYLOCAINE TOPICAL 4% TP ONE ×2 (12:11→15:47)
== END 2017-01-09 11:29 | disposition home or self-care (01) ==
LOC: WOUND 11:28
PROVIDERS: ATTEND Surgery
DX: I70.235 Atherosclerosis of native arteries of right leg with ulceration of other part of foot (principal); E11.621 Type 2 diabetes mellitus with foot ulcer; L97.411 Non-pressure chronic ulcer of right heel and midfoot limited to breakdown of skin; E11.69 Type 2 diabetes mellitus with other specified complication; M86.671 Other chronic osteomyelitis, right ankle and foot; I10 Essential (primary) hypertension; Z85.3 Personal history of malignant neoplasm of breast; Z86.73 Personal history of transient ischemic attack (TIA), and cerebral infarction without residual deficits; Z90.710 Acquired absence of both cervix and uterus
CPT/HCPCS: 11042; 11045; 82962; G0277; 99183

== ENCOUNTER 2017-01-10 13:37 | Outpatient (CLI) | payer MEDICARE | END 2017-01-10 13:38 | disposition home or self-care (01) | LOC: WOUND 13:37 | PROVIDERS: ATTEND Surgery | DX: E11.621 Type 2 diabetes mellitus with foot ulcer (principal); I70.235 Atherosclerosis of native arteries of right leg with ulceration of other part of foot; L97.411 Non-pressure chronic ulcer of right heel and midfoot limited to breakdown of skin; I10 Essential (primary) hypertension; E11.69 Type 2 diabetes mellitus with other specified complication; M86.671 Other chronic osteomyelitis, right ankle and foot; Z85.3 Personal history of malignant neoplasm of breast; Z90.710 Acquired absence of both cervix and uterus; Z86.73 Personal history of transient ischemic attack (TIA), and cerebral infarction without residual deficits | CPT/HCPCS: 82962; G0277; 99183 ==

== ENCOUNTER 2017-01-11 12:56 | Outpatient (CLI) | payer MEDICARE | END 2017-01-11 12:57 | disposition home or self-care (01) | LOC: WOUND 12:56 | PROVIDERS: ATTEND Surgery | DX: I70.235 Atherosclerosis of native arteries of right leg with ulceration of other part of foot (principal); E11.621 Type 2 diabetes mellitus with foot ulcer; L97.411 Non-pressure chronic ulcer of right heel and midfoot limited to breakdown of skin; I10 Essential (primary) hypertension; E11.69 Type 2 diabetes mellitus with other specified complication; M86.671 Other chronic osteomyelitis, right ankle and foot; Z85.3 Personal history of malignant neoplasm of breast; Z86.73 Personal history of transient ischemic attack (TIA), and cerebral infarction without residual deficits; Z90.710 Acquired absence of both cervix and uterus | CPT/HCPCS: 82962; G0277; 99183 ==

== ENCOUNTER 2017-01-12 11:41 | Outpatient (CLI) | payer MEDICARE | END 2017-01-12 11:42 | disposition home or self-care (01) | LOC: WOUND 11:41 | PROVIDERS: ATTEND Podiatrist | DX: I70.235 Atherosclerosis of native arteries of right leg with ulceration of other part of foot (principal); E11.621 Type 2 diabetes mellitus with foot ulcer; E11.69 Type 2 diabetes mellitus with other specified complication; M86.671 Other chronic osteomyelitis, right ankle and foot; L97.411 Non-pressure chronic ulcer of right heel and midfoot limited to breakdown of skin; Z85.3 Personal history of malignant neoplasm of breast; Z86.73 Personal history of transient ischemic attack (TIA), and cerebral infarction without residual deficits; Z90.710 Acquired absence of both cervix and uterus | CPT/HCPCS: 82962; G0277; 99183 ==

== ENCOUNTER 2017-01-17 12:58 | Outpatient (CLI) | payer MEDICARE | END 2017-01-17 12:59 | disposition home or self-care (01) | LOC: WOUND 12:58 | PROVIDERS: ATTEND Surgery | DX: I70.235 Atherosclerosis of native arteries of right leg with ulceration of other part of foot (principal); E11.621 Type 2 diabetes mellitus with foot ulcer; L97.411 Non-pressure chronic ulcer of right heel and midfoot limited to breakdown of skin; E11.69 Type 2 diabetes mellitus with other specified complication; M86.671 Other chronic osteomyelitis, right ankle and foot; I10 Essential (primary) hypertension; Z85.3 Personal history of malignant neoplasm of breast; Z86.73 Personal history of transient ischemic attack (TIA), and cerebral infarction without residual deficits; Z90.710 Acquired absence of both cervix and uterus | CPT/HCPCS: 82962; G0277; 99183 ==

== ENCOUNTER 2017-01-23 13:00 | Outpatient (CLI) | payer MEDICARE | END 2017-01-23 13:01 | disposition home or self-care (01) | LOC: WOUND 13:00 | PROVIDERS: ATTEND Internal Medicine | DX: E11.621 Type 2 diabetes mellitus with foot ulcer (principal); L97.411 Non-pressure chronic ulcer of right heel and midfoot limited to breakdown of skin; I70.235 Atherosclerosis of native arteries of right leg with ulceration of other part of foot; I10 Essential (primary) hypertension; E11.69 Type 2 diabetes mellitus with other specified complication; M86.671 Other chronic osteomyelitis, right ankle and foot; Z90.710 Acquired absence of both cervix and uterus; Z85.3 Personal history of malignant neoplasm of breast; Z86.73 Personal history of transient ischemic attack (TIA), and cerebral infarction without residual deficits | CPT/HCPCS: 82962; G0277; 99183 ==

== ENCOUNTER 2017-01-24 13:09 | Outpatient (CLI) | payer MEDICARE | END 2017-01-24 13:10 | disposition home or self-care (01) | LOC: WOUND 13:09 | PROVIDERS: ATTEND Surgery | DX: I70.235 Atherosclerosis of native arteries of right leg with ulceration of other part of foot (principal); E11.621 Type 2 diabetes mellitus with foot ulcer; L97.411 Non-pressure chronic ulcer of right heel and midfoot limited to breakdown of skin; E11.69 Type 2 diabetes mellitus with other specified complication; M86.671 Other chronic osteomyelitis, right ankle and foot; I10 Essential (primary) hypertension; Z90.710 Acquired absence of both cervix and uterus; Z86.73 Personal history of transient ischemic attack (TIA), and cerebral infarction without residual deficits; Z85.3 Personal history of malignant neoplasm of breast | CPT/HCPCS: 82962; G0277; 99183 ==

== ENCOUNTER 2017-01-25 11:54 | Outpatient (CLI) | payer MEDICARE ==
[2017-01-25] MEDS ORDERED: XYLOCAINE TOPICAL 4% TP ONE ×2 (12:09→15:57)
[2017-01-25] MEDS ORDERED: SILVER NITRATE TP ONE ×2 (12:19→15:57)
== END 2017-01-25 11:55 | disposition home or self-care (01) ==
LOC: WOUND 11:54
PROVIDERS: ATTEND Surgery
DX: I70.235 Atherosclerosis of native arteries of right leg with ulceration of other part of foot (principal); E11.621 Type 2 diabetes mellitus with foot ulcer; L97.411 Non-pressure chronic ulcer of right heel and midfoot limited to breakdown of skin; E11.69 Type 2 diabetes mellitus with other specified complication; M86.671 Other chronic osteomyelitis, right ankle and foot; Z90.710 Acquired absence of both cervix and uterus
CPT/HCPCS: 11042; 11045; 82962; G0277; 99183

== ENCOUNTER 2017-02-13 11:32 | Outpatient (CLI) | payer MEDICARE | END 2017-02-13 11:33 | disposition home or self-care (01) | LOC: WOUND 11:32 | PROVIDERS: ATTEND Internal Medicine | DX: I70.235 Atherosclerosis of native arteries of right leg with ulceration of other part of foot (principal); E11.621 Type 2 diabetes mellitus with foot ulcer; M86.671 Other chronic osteomyelitis, right ankle and foot; Z85.3 Personal history of malignant neoplasm of breast; Z86.73 Personal history of transient ischemic attack (TIA), and cerebral infarction without residual deficits; Z90.710 Acquired absence of both cervix and uterus | CPT/HCPCS: 82962; G0277; 99183 ==

== ENCOUNTER 2017-02-14 12:59 | Outpatient (CLI) | payer MEDICARE | END 2017-02-14 13:00 | disposition home or self-care (01) | LOC: WOUND 12:59 | PROVIDERS: ATTEND Surgery | DX: E11.621 Type 2 diabetes mellitus with foot ulcer (principal); I70.235 Atherosclerosis of native arteries of right leg with ulceration of other part of foot; L97.511 Non-pressure chronic ulcer of other part of right foot limited to breakdown of skin; L97.411 Non-pressure chronic ulcer of right heel and midfoot limited to breakdown of skin; E11.69 Type 2 diabetes mellitus with other specified complication; M86.671 Other chronic osteomyelitis, right ankle and foot; I10 Essential (primary) hypertension; Z90.710 Acquired absence of both cervix and uterus; Z86.73 Personal history of transient ischemic attack (TIA), and cerebral infarction without residual deficits; Z85.3 Personal history of malignant neoplasm of breast | CPT/HCPCS: 82962; G0277; 99183 ==

== ENCOUNTER 2017-02-15 11:10 | Outpatient (CLI) | payer MEDICARE ==
[2017-02-15] MEDS ORDERED: XYLOCAINE TOPICAL 4% TP ONE ×2 (11:44→14:21)
== END 2017-02-15 11:11 | disposition home or self-care (01) ==
LOC: WOUND 11:10
PROVIDERS: ATTEND Surgery
DX: E11.621 Type 2 diabetes mellitus with foot ulcer (principal); L97.411 Non-pressure chronic ulcer of right heel and midfoot limited to breakdown of skin; I70.235 Atherosclerosis of native arteries of right leg with ulceration of other part of foot; E11.69 Type 2 diabetes mellitus with other specified complication; M86.671 Other chronic osteomyelitis, right ankle and foot; I10 Essential (primary) hypertension; Z85.3 Personal history of malignant neoplasm of breast; Z86.73 Personal history of transient ischemic attack (TIA), and cerebral infarction without residual deficits; Z90.710 Acquired absence of both cervix and uterus
CPT/HCPCS: 11042; 11045; 82962; G0277; 99183

== ENCOUNTER 2017-02-21 11:21 | Outpatient (CLI) | payer MEDICARE ==
[2017-02-21] MEDS ORDERED: XYLOCAINE TOPICAL 4% TP ONE (11:49)
== END 2017-02-21 11:22 | disposition home or self-care (01) ==
LOC: WOUND 11:21
PROVIDERS: ATTEND Surgery
DX: I70.235 Atherosclerosis of native arteries of right leg with ulceration of other part of foot (principal); E11.621 Type 2 diabetes mellitus with foot ulcer; L97.411 Non-pressure chronic ulcer of right heel and midfoot limited to breakdown of skin; E11.69 Type 2 diabetes mellitus with other specified complication; M86.671 Other chronic osteomyelitis, right ankle and foot; Z85.3 Personal history of malignant neoplasm of breast; Z86.73 Personal history of transient ischemic attack (TIA), and cerebral infarction without residual deficits; Z90.710 Acquired absence of both cervix and uterus
CPT/HCPCS: 11100; 82962; 87116; 88304; 88311; G0277; 99183

== ENCOUNTER 2017-02-27 12:18 | Outpatient (CLI) | payer MEDICARE ==
[~2017-02-27 12:18] MED LIST: XYLOCAINE TOPICAL 4% TP ONE
== END 2017-02-27 12:19 | disposition home or self-care (01) ==
LOC: WOUND 12:18
PROVIDERS: ATTEND Internal Medicine
DX: I70.235 Atherosclerosis of native arteries of right leg with ulceration of other part of foot (principal); E11.621 Type 2 diabetes mellitus with foot ulcer; L97.411 Non-pressure chronic ulcer of right heel and midfoot limited to breakdown of skin; M27.2 Inflammatory conditions of jaws; E11.69 Type 2 diabetes mellitus with other specified complication; M86.671 Other chronic osteomyelitis, right ankle and foot; I10 Essential (primary) hypertension; Z86.73 Personal history of transient ischemic attack (TIA), and cerebral infarction without residual deficits; Z85.3 Personal history of malignant neoplasm of breast; Z90.710 Acquired absence of both cervix and uterus
CPT/HCPCS: 82962; G0277; 99183

== ENCOUNTER 2017-03-03 12:27 | Outpatient (CLI) | payer MEDICARE | END 2017-03-03 12:28 | disposition home or self-care (01) | LOC: WOUND 12:27 | PROVIDERS: ATTEND Podiatrist | DX: E11.621 Type 2 diabetes mellitus with foot ulcer (principal); I70.235 Atherosclerosis of native arteries of right leg with ulceration of other part of foot; L97.411 Non-pressure chronic ulcer of right heel and midfoot limited to breakdown of skin; E11.69 Type 2 diabetes mellitus with other specified complication; M86.671 Other chronic osteomyelitis, right ankle and foot; M27.2 Inflammatory conditions of jaws; Z86.73 Personal history of transient ischemic attack (TIA), and cerebral infarction without residual deficits; Z85.3 Personal history of malignant neoplasm of breast | CPT/HCPCS: 82962; G0277; 99183 ==

== ENCOUNTER 2017-03-08 12:54 | Outpatient (CLI) | payer MEDICARE | END 2017-03-08 12:55 | disposition home or self-care (01) | LOC: WOUND 12:54 | PROVIDERS: ATTEND Surgery | DX: I70.235 Atherosclerosis of native arteries of right leg with ulceration of other part of foot (principal); E11.621 Type 2 diabetes mellitus with foot ulcer; L97.411 Non-pressure chronic ulcer of right heel and midfoot limited to breakdown of skin; E11.69 Type 2 diabetes mellitus with other specified complication; M86.671 Other chronic osteomyelitis, right ankle and foot; Z85.3 Personal history of malignant neoplasm of breast; Z86.73 Personal history of transient ischemic attack (TIA), and cerebral infarction without residual deficits; Z90.710 Acquired absence of both cervix and uterus | CPT/HCPCS: 82962; G0277; 99183 ==

== ENCOUNTER 2017-03-09 12:34 | Outpatient (CLI) | payer MEDICARE | END 2017-03-09 12:35 | disposition home or self-care (01) | LOC: WOUND 12:34 | PROVIDERS: ATTEND Nurse Practitioner | DX: I70.235 Atherosclerosis of native arteries of right leg with ulceration of other part of foot (principal); E11.621 Type 2 diabetes mellitus with foot ulcer; L97.411 Non-pressure chronic ulcer of right heel and midfoot limited to breakdown of skin; E11.69 Type 2 diabetes mellitus with other specified complication; M86.671 Other chronic osteomyelitis, right ankle and foot; I10 Essential (primary) hypertension; Z85.3 Personal history of malignant neoplasm of breast; Z86.73 Personal history of transient ischemic attack (TIA), and cerebral infarction without residual deficits; Z90.710 Acquired absence of both cervix and uterus | CPT/HCPCS: 82962; G0277; 99183 ==

== ENCOUNTER 2017-03-10 12:54 | Outpatient (CLI) | payer MEDICARE | END 2017-03-10 12:55 | disposition home or self-care (01) | LOC: WOUND 12:54 | PROVIDERS: ATTEND Internal Medicine | DX: I70.235 Atherosclerosis of native arteries of right leg with ulceration of other part of foot (principal); E11.621 Type 2 diabetes mellitus with foot ulcer; L97.411 Non-pressure chronic ulcer of right heel and midfoot limited to breakdown of skin; E11.69 Type 2 diabetes mellitus with other specified complication; M86.671 Other chronic osteomyelitis, right ankle and foot; I10 Essential (primary) hypertension; Z85.3 Personal history of malignant neoplasm of breast; Z86.73 Personal history of transient ischemic attack (TIA), and cerebral infarction without residual deficits; Z90.710 Acquired absence of both cervix and uterus | CPT/HCPCS: 82962; G0277; 99183 ==

== ENCOUNTER 2017-03-13 12:23 | Outpatient (CLI) | payer MEDICARE | END 2017-03-13 12:24 | disposition home or self-care (01) | LOC: WOUND 12:23 | PROVIDERS: ATTEND Internal Medicine | DX: E11.621 Type 2 diabetes mellitus with foot ulcer (principal); I70.235 Atherosclerosis of native arteries of right leg with ulceration of other part of foot; L97.411 Non-pressure chronic ulcer of right heel and midfoot limited to breakdown of skin; E11.69 Type 2 diabetes mellitus with other specified complication; M86.671 Other chronic osteomyelitis, right ankle and foot; M27.2 Inflammatory conditions of jaws; Z85.3 Personal history of malignant neoplasm of breast; Z86.73 Personal history of transient ischemic attack (TIA), and cerebral infarction without residual deficits | CPT/HCPCS: 82962; G0277; 99183 ==

== ENCOUNTER 2017-03-14 10:19 | Outpatient (CLI) | payer MEDICARE ==
[2017-03-14] MEDS ORDERED: XYLOCAINE TOPICAL 4% TP ONE (10:41)
== END 2017-03-14 10:20 | disposition home or self-care (01) ==
LOC: WOUND 10:19
PROVIDERS: ATTEND Surgery
DX: E11.621 Type 2 diabetes mellitus with foot ulcer (principal); I70.235 Atherosclerosis of native arteries of right leg with ulceration of other part of foot; L97.411 Non-pressure chronic ulcer of right heel and midfoot limited to breakdown of skin; E11.69 Type 2 diabetes mellitus with other specified complication; M86.671 Other chronic osteomyelitis, right ankle and foot; I10 Essential (primary) hypertension; M27.2 Inflammatory conditions of jaws; Z85.3 Personal history of malignant neoplasm of breast; Z86.73 Personal history of transient ischemic attack (TIA), and cerebral infarction without residual deficits
CPT/HCPCS: 11042; 11045; G0277; 99183

== ENCOUNTER 2017-03-17 11:21 | Outpatient (CLI) | payer MEDICARE | END 2017-03-17 11:22 | disposition home or self-care (01) | LOC: WOUND 11:21 | PROVIDERS: ATTEND Podiatrist | DX: I70.235 Atherosclerosis of native arteries of right leg with ulceration of other part of foot (principal); E11.621 Type 2 diabetes mellitus with foot ulcer; L97.411 Non-pressure chronic ulcer of right heel and midfoot limited to breakdown of skin; E11.69 Type 2 diabetes mellitus with other specified complication; M86.671 Other chronic osteomyelitis, right ankle and foot; I10 Essential (primary) hypertension; Z85.3 Personal history of malignant neoplasm of breast; Z86.73 Personal history of transient ischemic attack (TIA), and cerebral infarction without residual deficits; Z90.710 Acquired absence of both cervix and uterus | CPT/HCPCS: 82962; G0277; G0463; 99183; 99214 ==

== ENCOUNTER 2017-03-20 12:43 | Outpatient (CLI) | payer MEDICARE | END 2017-03-20 12:44 | disposition home or self-care (01) | LOC: WOUND 12:43 | PROVIDERS: ATTEND Internal Medicine | DX: I70.235 Atherosclerosis of native arteries of right leg with ulceration of other part of foot (principal); E11.621 Type 2 diabetes mellitus with foot ulcer; L97.411 Non-pressure chronic ulcer of right heel and midfoot limited to breakdown of skin; E11.69 Type 2 diabetes mellitus with other specified complication; M86.671 Other chronic osteomyelitis, right ankle and foot; I10 Essential (primary) hypertension; Z85.3 Personal history of malignant neoplasm of breast; Z86.73 Personal history of transient ischemic attack (TIA), and cerebral infarction without residual deficits; Z90.710 Acquired absence of both cervix and uterus | CPT/HCPCS: 82962; G0277; 99183 ==

== ENCOUNTER 2017-03-21 13:03 | Outpatient (CLI) | payer MEDICARE | END 2017-03-21 13:04 | disposition home or self-care (01) | LOC: WOUND 13:03 | PROVIDERS: ATTEND Surgery | DX: I70.235 Atherosclerosis of native arteries of right leg with ulceration of other part of foot (principal); E11.621 Type 2 diabetes mellitus with foot ulcer; L97.411 Non-pressure chronic ulcer of right heel and midfoot limited to breakdown of skin; E11.69 Type 2 diabetes mellitus with other specified complication; M86.671 Other chronic osteomyelitis, right ankle and foot; I10 Essential (primary) hypertension; Z85.3 Personal history of malignant neoplasm of breast; Z86.73 Personal history of transient ischemic attack (TIA), and cerebral infarction without residual deficits; Z90.710 Acquired absence of both cervix and uterus | CPT/HCPCS: 82962; G0277; 99183 ==

== ENCOUNTER 2017-03-22 11:49 | Outpatient (CLI) | payer MEDICARE | END 2017-03-22 11:50 | disposition home or self-care (01) | LOC: WOUND 11:49 | PROVIDERS: ATTEND Surgery | DX: E11.621 Type 2 diabetes mellitus with foot ulcer (principal); L97.411 Non-pressure chronic ulcer of right heel and midfoot limited to breakdown of skin; I70.235 Atherosclerosis of native arteries of right leg with ulceration of other part of foot; E11.69 Type 2 diabetes mellitus with other specified complication; M86.671 Other chronic osteomyelitis, right ankle and foot; I10 Essential (primary) hypertension; Z85.3 Personal history of malignant neoplasm of breast; Z86.73 Personal history of transient ischemic attack (TIA), and cerebral infarction without residual deficits; Z90.710 Acquired absence of both cervix and uterus | CPT/HCPCS: 82962; G0277; 99183 ==

== ENCOUNTER 2017-03-23 13:01 | Outpatient (CLI) | payer MEDICARE | END 2017-03-23 13:02 | disposition home or self-care (01) | LOC: WOUND 13:01 | PROVIDERS: ATTEND Nurse Practitioner | DX: I70.235 Atherosclerosis of native arteries of right leg with ulceration of other part of foot (principal); E11.621 Type 2 diabetes mellitus with foot ulcer; L97.411 Non-pressure chronic ulcer of right heel and midfoot limited to breakdown of skin; I10 Essential (primary) hypertension; Z85.3 Personal history of malignant neoplasm of breast; Z86.73 Personal history of transient ischemic attack (TIA), and cerebral infarction without residual deficits; Z90.710 Acquired absence of both cervix and uterus | CPT/HCPCS: 82962; G0277; 99183 ==

== ENCOUNTER 2017-03-24 12:16 | Outpatient (CLI) | payer MEDICARE | END 2017-03-24 12:17 | disposition home or self-care (01) | LOC: WOUND 12:16 | PROVIDERS: ATTEND Podiatrist | DX: E11.621 Type 2 diabetes mellitus with foot ulcer (principal); I70.235 Atherosclerosis of native arteries of right leg with ulceration of other part of foot; L97.411 Non-pressure chronic ulcer of right heel and midfoot limited to breakdown of skin; E11.69 Type 2 diabetes mellitus with other specified complication; M86.671 Other chronic osteomyelitis, right ankle and foot; M27.2 Inflammatory conditions of jaws; I10 Essential (primary) hypertension; Z85.3 Personal history of malignant neoplasm of breast; Z86.73 Personal history of transient ischemic attack (TIA), and cerebral infarction without residual deficits | CPT/HCPCS: 82962; G0277; 17250; 99183 ==

== ENCOUNTER 2017-03-28 11:41 | Outpatient (CLI) | payer MEDICARE ==
[2017-03-28] MEDS ORDERED: XYLOCAINE TOPICAL 4% TP ONE ×2 (12:03→13:00)
== END 2017-03-28 11:42 | disposition home or self-care (01) ==
LOC: WOUND 11:41
PROVIDERS: ATTEND Internal Medicine
DX: I70.235 Atherosclerosis of native arteries of right leg with ulceration of other part of foot (principal); E11.621 Type 2 diabetes mellitus with foot ulcer; L97.411 Non-pressure chronic ulcer of right heel and midfoot limited to breakdown of skin; I10 Essential (primary) hypertension; E11.69 Type 2 diabetes mellitus with other specified complication; M86.671 Other chronic osteomyelitis, right ankle and foot; Z85.3 Personal history of malignant neoplasm of breast; Z86.73 Personal history of transient ischemic attack (TIA), and cerebral infarction without residual deficits; Z90.710 Acquired absence of both cervix and uterus
CPT/HCPCS: 11042; 11045; 82962; 97605; G0277; 99183

== ENCOUNTER 2017-03-29 12:02 | Outpatient (CLI) | payer MEDICARE | END 2017-03-29 12:03 | disposition home or self-care (01) | LOC: WOUND 12:02 | PROVIDERS: ATTEND Surgery | DX: I70.235 Atherosclerosis of native arteries of right leg with ulceration of other part of foot (principal); E11.621 Type 2 diabetes mellitus with foot ulcer; E11.69 Type 2 diabetes mellitus with other specified complication; M86.671 Other chronic osteomyelitis, right ankle and foot; L97.514 Non-pressure chronic ulcer of other part of right foot with necrosis of bone; I10 Essential (primary) hypertension; Z85.3 Personal history of malignant neoplasm of breast; Z86.73 Personal history of transient ischemic attack (TIA), and cerebral infarction without residual deficits; Z90.710 Acquired absence of both cervix and uterus | CPT/HCPCS: 82962; G0277; 99183 ==

== ENCOUNTER 2017-03-31 12:32 | Outpatient (CLI) | payer MEDICARE | END 2017-03-31 12:33 | disposition home or self-care (01) | LOC: WOUND 12:32 | PROVIDERS: ATTEND Podiatrist | DX: I70.235 Atherosclerosis of native arteries of right leg with ulceration of other part of foot (principal); E11.621 Type 2 diabetes mellitus with foot ulcer; L97.514 Non-pressure chronic ulcer of other part of right foot with necrosis of bone; E11.69 Type 2 diabetes mellitus with other specified complication; M86.671 Other chronic osteomyelitis, right ankle and foot; I10 Essential (primary) hypertension; Z85.3 Personal history of malignant neoplasm of breast; Z86.73 Personal history of transient ischemic attack (TIA), and cerebral infarction without residual deficits; Z90.710 Acquired absence of both cervix and uterus | CPT/HCPCS: 82962; G0277; 99183 ==

== ENCOUNTER 2017-04-03 13:28 | Outpatient (CLI) | payer MEDICARE | END 2017-04-03 13:29 | disposition home or self-care (01) | LOC: WOUND 13:28 | PROVIDERS: ATTEND Internal Medicine | DX: I70.235 Atherosclerosis of native arteries of right leg with ulceration of other part of foot (principal); E11.621 Type 2 diabetes mellitus with foot ulcer; L97.514 Non-pressure chronic ulcer of other part of right foot with necrosis of bone; E11.69 Type 2 diabetes mellitus with other specified complication; M86.671 Other chronic osteomyelitis, right ankle and foot; I10 Essential (primary) hypertension; Z85.3 Personal history of malignant neoplasm of breast; Z86.73 Personal history of transient ischemic attack (TIA), and cerebral infarction without residual deficits; Z90.710 Acquired absence of both cervix and uterus | CPT/HCPCS: 82962; G0277; 99183 ==

== ENCOUNTER 2017-04-04 11:18 | Outpatient (CLI) | payer MEDICARE ==
[2017-04-04] MEDS ORDERED: XYLOCAINE TOPICAL 4% TP ONE (12:04)
== END 2017-04-04 11:19 | disposition home or self-care (01) ==
LOC: WOUND 11:18
PROVIDERS: ATTEND Surgery
DX: E11.621 Type 2 diabetes mellitus with foot ulcer (principal); L97.514 Non-pressure chronic ulcer of other part of right foot with necrosis of bone; I70.235 Atherosclerosis of native arteries of right leg with ulceration of other part of foot; E11.69 Type 2 diabetes mellitus with other specified complication; M86.671 Other chronic osteomyelitis, right ankle and foot; L84 Corns and callosities; I10 Essential (primary) hypertension; Z85.3 Personal history of malignant neoplasm of breast; Z86.73 Personal history of transient ischemic attack (TIA), and cerebral infarction without residual deficits; Z90.710 Acquired absence of both cervix and uterus
CPT/HCPCS: 11042; 11045; 82962; G0277; 99183

== ENCOUNTER 2017-04-05 12:57 | Outpatient (CLI) | payer MEDICARE | END 2017-04-05 12:58 | disposition home or self-care (01) | LOC: WOUND 12:57 | PROVIDERS: ATTEND Surgery | DX: E11.621 Type 2 diabetes mellitus with foot ulcer (principal); L97.514 Non-pressure chronic ulcer of other part of right foot with necrosis of bone; I70.235 Atherosclerosis of native arteries of right leg with ulceration of other part of foot; E11.69 Type 2 diabetes mellitus with other specified complication; M86.671 Other chronic osteomyelitis, right ankle and foot; I10 Essential (primary) hypertension; Z85.3 Personal history of malignant neoplasm of breast; Z86.73 Personal history of transient ischemic attack (TIA), and cerebral infarction without residual deficits; Z90.710 Acquired absence of both cervix and uterus | CPT/HCPCS: 82962; G0277; 99183 ==

== ENCOUNTER 2017-04-10 13:00 | Outpatient (CLI) | payer MEDICARE | END 2017-04-10 13:01 | disposition home or self-care (01) | LOC: WOUND 13:00 | PROVIDERS: ATTEND Internal Medicine | DX: I70.235 Atherosclerosis of native arteries of right leg with ulceration of other part of foot (principal); E11.621 Type 2 diabetes mellitus with foot ulcer; L97.411 Non-pressure chronic ulcer of right heel and midfoot limited to breakdown of skin; L97.514 Non-pressure chronic ulcer of other part of right foot with necrosis of bone; E11.69 Type 2 diabetes mellitus with other specified complication; M86.671 Other chronic osteomyelitis, right ankle and foot; Z85.3 Personal history of malignant neoplasm of breast; Z86.73 Personal history of transient ischemic attack (TIA), and cerebral infarction without residual deficits; Z90.710 Acquired absence of both cervix and uterus | CPT/HCPCS: 82962; G0277; 99183 ==

== ENCOUNTER 2017-04-11 11:17 | Outpatient (CLI) | payer MEDICARE ==
[2017-04-11] MEDS ORDERED: XYLOCAINE TOPICAL 4% TP ONE ×2 (11:37→15:22)
== END 2017-04-11 11:18 | disposition home or self-care (01) ==
LOC: WOUND 11:17
PROVIDERS: ATTEND Internal Medicine
DX: I70.235 Atherosclerosis of native arteries of right leg with ulceration of other part of foot (principal); E11.621 Type 2 diabetes mellitus with foot ulcer; L97.411 Non-pressure chronic ulcer of right heel and midfoot limited to breakdown of skin; E11.69 Type 2 diabetes mellitus with other specified complication; M86.671 Other chronic osteomyelitis, right ankle and foot; L97.514 Non-pressure chronic ulcer of other part of right foot with necrosis of bone; Z85.3 Personal history of malignant neoplasm of breast; Z86.73 Personal history of transient ischemic attack (TIA), and cerebral infarction without residual deficits
CPT/HCPCS: 11042; 82962; 97605; G0277; 99183

== ENCOUNTER 2017-04-12 13:09 | Outpatient (CLI) | payer MEDICARE | END 2017-04-12 13:10 | disposition home or self-care (01) | LOC: WOUND 13:09 | PROVIDERS: ATTEND Surgery | DX: I70.235 Atherosclerosis of native arteries of right leg with ulceration of other part of foot (principal); E11.621 Type 2 diabetes mellitus with foot ulcer; L97.514 Non-pressure chronic ulcer of other part of right foot with necrosis of bone; E11.69 Type 2 diabetes mellitus with other specified complication; M86.671 Other chronic osteomyelitis, right ankle and foot; I10 Essential (primary) hypertension; Z85.3 Personal history of malignant neoplasm of breast; Z86.73 Personal history of transient ischemic attack (TIA), and cerebral infarction without residual deficits; Z90.710 Acquired absence of both cervix and uterus | CPT/HCPCS: 82962; G0277; 99183 ==

== ENCOUNTER 2017-04-13 13:08 | Outpatient (CLI) | payer MEDICARE | END 2017-04-13 13:09 | disposition home or self-care (01) | LOC: WOUND 13:08 | PROVIDERS: ATTEND Nurse Practitioner | DX: I70.235 Atherosclerosis of native arteries of right leg with ulceration of other part of foot (principal); E11.621 Type 2 diabetes mellitus with foot ulcer; L97.414 Non-pressure chronic ulcer of right heel and midfoot with necrosis of bone; E11.69 Type 2 diabetes mellitus with other specified complication; M86.671 Other chronic osteomyelitis, right ankle and foot; I10 Essential (primary) hypertension; Z85.3 Personal history of malignant neoplasm of breast; Z86.73 Personal history of transient ischemic attack (TIA), and cerebral infarction without residual deficits; Z90.710 Acquired absence of both cervix and uterus | CPT/HCPCS: 82962; G0277; 99183 ==

== ENCOUNTER 2017-04-17 12:34 | Outpatient (CLI) | payer MEDICARE | END 2017-04-17 12:35 | disposition home or self-care (01) | LOC: WOUND 12:34 | PROVIDERS: ATTEND Internal Medicine | DX: I70.235 Atherosclerosis of native arteries of right leg with ulceration of other part of foot (principal); E11.621 Type 2 diabetes mellitus with foot ulcer; L97.514 Non-pressure chronic ulcer of other part of right foot with necrosis of bone; E11.69 Type 2 diabetes mellitus with other specified complication; M86.671 Other chronic osteomyelitis, right ankle and foot; I10 Essential (primary) hypertension; Z85.3 Personal history of malignant neoplasm of breast; Z86.73 Personal history of transient ischemic attack (TIA), and cerebral infarction without residual deficits; Z90.710 Acquired absence of both cervix and uterus | CPT/HCPCS: 82962; G0277; 99183 ==

== ENCOUNTER 2017-04-18 11:32 | Outpatient (CLI) | payer MEDICARE ==
[2017-04-18] MEDS ORDERED: XYLOCAINE TOPICAL 4% TP ONE ×2 (12:10→12:14)
== END 2017-04-18 11:33 | disposition home or self-care (01) ==
LOC: WOUND 11:32
PROVIDERS: ATTEND Surgery
DX: I70.235 Atherosclerosis of native arteries of right leg with ulceration of other part of foot (principal); E11.621 Type 2 diabetes mellitus with foot ulcer; L97.514 Non-pressure chronic ulcer of other part of right foot with necrosis of bone; E11.69 Type 2 diabetes mellitus with other specified complication; M86.671 Other chronic osteomyelitis, right ankle and foot; I10 Essential (primary) hypertension; Z85.3 Personal history of malignant neoplasm of breast; Z86.73 Personal history of transient ischemic attack (TIA), and cerebral infarction without residual deficits; Z90.710 Acquired absence of both cervix and uterus
CPT/HCPCS: 82962; 97605; G0277; 99183

== ENCOUNTER 2017-04-19 13:05 | Outpatient (CLI) | payer MEDICARE | END 2017-04-19 13:06 | disposition home or self-care (01) | LOC: WOUND 13:05 | PROVIDERS: ATTEND Surgery | DX: E11.621 Type 2 diabetes mellitus with foot ulcer (principal); I70.235 Atherosclerosis of native arteries of right leg with ulceration of other part of foot; L97.514 Non-pressure chronic ulcer of other part of right foot with necrosis of bone; E11.69 Type 2 diabetes mellitus with other specified complication; M86.671 Other chronic osteomyelitis, right ankle and foot; I10 Essential (primary) hypertension; Z85.3 Personal history of malignant neoplasm of breast; Z86.73 Personal history of transient ischemic attack (TIA), and cerebral infarction without residual deficits; Z90.710 Acquired absence of both cervix and uterus | CPT/HCPCS: 82962; G0277; 99183 ==

== ENCOUNTER 2017-04-21 12:47 | Outpatient (CLI) | payer MEDICARE | END 2017-04-21 12:48 | disposition home or self-care (01) | LOC: WOUND 12:47 | PROVIDERS: ATTEND Podiatrist | DX: E11.9 Type 2 diabetes mellitus without complications (principal); I10 Essential (primary) hypertension; Z85.3 Personal history of malignant neoplasm of breast; Z86.73 Personal history of transient ischemic attack (TIA), and cerebral infarction without residual deficits | CPT/HCPCS: 82962 ==

== ENCOUNTER 2017-04-24 12:52 | Outpatient (CLI) | payer MEDICARE | END 2017-04-24 12:53 | disposition home or self-care (01) | LOC: WOUND 12:52 | PROVIDERS: ATTEND Internal Medicine | DX: I70.235 Atherosclerosis of native arteries of right leg with ulceration of other part of foot (principal); E11.621 Type 2 diabetes mellitus with foot ulcer; L97.514 Non-pressure chronic ulcer of other part of right foot with necrosis of bone; E11.69 Type 2 diabetes mellitus with other specified complication; M86.671 Other chronic osteomyelitis, right ankle and foot; I10 Essential (primary) hypertension; Z85.3 Personal history of malignant neoplasm of breast; Z86.73 Personal history of transient ischemic attack (TIA), and cerebral infarction without residual deficits; Z90.710 Acquired absence of both cervix and uterus | CPT/HCPCS: 82962; G0277; 99183 ==

== ENCOUNTER 2017-04-25 11:17 | Outpatient (CLI) | payer MEDICARE ==
[2017-04-25] MEDS ORDERED: SILVER NITRATE TP ONE ×2 (11:41→16:11)
== END 2017-04-25 11:18 | disposition home or self-care (01) ==
LOC: WOUND 11:17
PROVIDERS: ATTEND Surgery
DX: I70.235 Atherosclerosis of native arteries of right leg with ulceration of other part of foot (principal); E11.621 Type 2 diabetes mellitus with foot ulcer; L97.414 Non-pressure chronic ulcer of right heel and midfoot with necrosis of bone; E11.69 Type 2 diabetes mellitus with other specified complication; M86.671 Other chronic osteomyelitis, right ankle and foot; Z90.710 Acquired absence of both cervix and uterus
CPT/HCPCS: 17250; 82962; G0277; G0463; 97605; 99183

== ENCOUNTER 2017-04-26 12:39 | Outpatient (CLI) | payer MEDICARE | END 2017-04-26 12:40 | disposition home or self-care (01) | LOC: WOUND 12:39 | PROVIDERS: ATTEND Surgery | DX: I70.235 Atherosclerosis of native arteries of right leg with ulceration of other part of foot (principal); E11.621 Type 2 diabetes mellitus with foot ulcer; L97.514 Non-pressure chronic ulcer of other part of right foot with necrosis of bone; E11.69 Type 2 diabetes mellitus with other specified complication; M86.671 Other chronic osteomyelitis, right ankle and foot; I10 Essential (primary) hypertension; Z85.3 Personal history of malignant neoplasm of breast; Z86.73 Personal history of transient ischemic attack (TIA), and cerebral infarction without residual deficits; Z90.710 Acquired absence of both cervix and uterus | CPT/HCPCS: 82962; G0277; 99183 ==

== ENCOUNTER 2017-05-02 11:24 | Outpatient (CLI) | payer MEDICARE | END 2017-05-02 11:25 | disposition home or self-care (01) | LOC: WOUND 11:24 | PROVIDERS: ATTEND Surgery | DX: I70.235 Atherosclerosis of native arteries of right leg with ulceration of other part of foot (principal); E11.621 Type 2 diabetes mellitus with foot ulcer; L97.514 Non-pressure chronic ulcer of other part of right foot with necrosis of bone; E11.69 Type 2 diabetes mellitus with other specified complication; M86.671 Other chronic osteomyelitis, right ankle and foot; I10 Essential (primary) hypertension; Z85.3 Personal history of malignant neoplasm of breast; Z86.73 Personal history of transient ischemic attack (TIA), and cerebral infarction without residual deficits; Z90.710 Acquired absence of both cervix and uterus | CPT/HCPCS: 11042; 82962; 97605; G0277; 99183 ==

== ENCOUNTER 2017-05-03 13:18 | Outpatient (CLI) | payer MEDICARE | END 2017-05-03 13:19 | disposition home or self-care (01) | LOC: WOUND 13:18 | PROVIDERS: ATTEND Surgery | DX: E11.621 Type 2 diabetes mellitus with foot ulcer (principal); L97.414 Non-pressure chronic ulcer of right heel and midfoot with necrosis of bone; E11.69 Type 2 diabetes mellitus with other specified complication; M86.671 Other chronic osteomyelitis, right ankle and foot; I10 Essential (primary) hypertension; Z85.3 Personal history of malignant neoplasm of breast; Z86.73 Personal history of transient ischemic attack (TIA), and cerebral infarction without residual deficits; Z90.710 Acquired absence of both cervix and uterus | CPT/HCPCS: 82962; G0277; 99183 ==

== ENCOUNTER 2017-05-09 11:39 | Outpatient (CLI) | payer MEDICARE | END 2017-05-09 11:40 | disposition home or self-care (01) | LOC: EDBD → WOUND 11:39 | PROVIDERS: ATTEND Surgery | DX: E11.621 Type 2 diabetes mellitus with foot ulcer (principal); I70.235 Atherosclerosis of native arteries of right leg with ulceration of other part of foot; L97.414 Non-pressure chronic ulcer of right heel and midfoot with necrosis of bone; E11.69 Type 2 diabetes mellitus with other specified complication; M86.671 Other chronic osteomyelitis, right ankle and foot; M87.38 Other secondary osteonecrosis, other site; I10 Essential (primary) hypertension; Z85.3 Personal history of malignant neoplasm of breast; Z90.710 Acquired absence of both cervix and uterus; Z86.73 Personal history of transient ischemic attack (TIA), and cerebral infarction without residual deficits; Y63.2 Overdose of radiation given during therapy; Y78.1 Therapeutic (nonsurgical) and rehabilitative radiological devices associated with adverse incidents | CPT/HCPCS: 11042; 82962; 97605; G0277; 99183 ==

== ENCOUNTER 2017-05-16 11:34 | Outpatient (CLI) | payer MEDICARE | END 2017-05-16 11:35 | disposition home or self-care (01) | LOC: WOUND 11:34 | PROVIDERS: ATTEND Surgery | DX: I70.235 Atherosclerosis of native arteries of right leg with ulceration of other part of foot (principal); E11.621 Type 2 diabetes mellitus with foot ulcer; L97.414 Non-pressure chronic ulcer of right heel and midfoot with necrosis of bone; E11.69 Type 2 diabetes mellitus with other specified complication; M86.671 Other chronic osteomyelitis, right ankle and foot; I10 Essential (primary) hypertension; Z85.3 Personal history of malignant neoplasm of breast; Z86.73 Personal history of transient ischemic attack (TIA), and cerebral infarction without residual deficits; Z90.710 Acquired absence of both cervix and uterus | CPT/HCPCS: 11042; 82962; 97605; G0277; 99183 ==

== ENCOUNTER 2017-05-17 13:10 | Outpatient (CLI) | payer MEDICARE | END 2017-05-17 13:11 | disposition home or self-care (01) | LOC: WOUND 13:10 | PROVIDERS: ATTEND Surgery | DX: E11.621 Type 2 diabetes mellitus with foot ulcer (principal); I70.235 Atherosclerosis of native arteries of right leg with ulceration of other part of foot; L97.414 Non-pressure chronic ulcer of right heel and midfoot with necrosis of bone; E11.69 Type 2 diabetes mellitus with other specified complication; M86.671 Other chronic osteomyelitis, right ankle and foot; I10 Essential (primary) hypertension; Z85.3 Personal history of malignant neoplasm of breast; Z86.73 Personal history of transient ischemic attack (TIA), and cerebral infarction without residual deficits; Z90.710 Acquired absence of both cervix and uterus | CPT/HCPCS: 82962; 99183; G0277 ==

== ENCOUNTER 2017-05-18 12:55 | Outpatient (CLI) | payer MEDICARE | END 2017-05-18 12:56 | disposition home or self-care (01) | LOC: WOUND 12:55 | PROVIDERS: ATTEND Nurse Practitioner | DX: I70.235 Atherosclerosis of native arteries of right leg with ulceration of other part of foot (principal); E11.621 Type 2 diabetes mellitus with foot ulcer; L97.413 Non-pressure chronic ulcer of right heel and midfoot with necrosis of muscle; E11.69 Type 2 diabetes mellitus with other specified complication; M86.671 Other chronic osteomyelitis, right ankle and foot; I10 Essential (primary) hypertension; Z85.3 Personal history of malignant neoplasm of breast; Z86.73 Personal history of transient ischemic attack (TIA), and cerebral infarction without residual deficits; Z90.710 Acquired absence of both cervix and uterus | CPT/HCPCS: 82962 ==

== ENCOUNTER 2017-05-19 11:20 | Outpatient (CLI) | payer MEDICARE | END 2017-05-19 11:21 | disposition home or self-care (01) | LOC: WOUND 11:20 | PROVIDERS: ATTEND Podiatrist | DX: E11.621 Type 2 diabetes mellitus with foot ulcer (principal); I70.235 Atherosclerosis of native arteries of right leg with ulceration of other part of foot; L97.414 Non-pressure chronic ulcer of right heel and midfoot with necrosis of bone; E11.69 Type 2 diabetes mellitus with other specified complication; M86.671 Other chronic osteomyelitis, right ankle and foot; I10 Essential (primary) hypertension; Z85.3 Personal history of malignant neoplasm of breast; Z86.73 Personal history of transient ischemic attack (TIA), and cerebral infarction without residual deficits; Z90.710 Acquired absence of both cervix and uterus | CPT/HCPCS: 82962; G0277; 99183 ==

== ENCOUNTER 2017-05-22 10:04 | Outpatient (CLI) | payer MEDICARE | END 2017-05-22 10:05 | disposition home or self-care (01) | LOC: WOUND 10:04 | PROVIDERS: ATTEND Internal Medicine | DX: E11.621 Type 2 diabetes mellitus with foot ulcer (principal); I70.235 Atherosclerosis of native arteries of right leg with ulceration of other part of foot; L97.414 Non-pressure chronic ulcer of right heel and midfoot with necrosis of bone; E11.69 Type 2 diabetes mellitus with other specified complication; M86.671 Other chronic osteomyelitis, right ankle and foot; I10 Essential (primary) hypertension; Z85.3 Personal history of malignant neoplasm of breast; Z86.73 Personal history of transient ischemic attack (TIA), and cerebral infarction without residual deficits; Z90.710 Acquired absence of both cervix and uterus | CPT/HCPCS: 82962; G0277; 99183 ==

== ENCOUNTER 2017-05-23 09:56 | Outpatient (CLI) | payer MEDICARE | END 2017-05-23 09:57 | disposition home or self-care (01) | LOC: WOUND 09:56 | PROVIDERS: ATTEND Surgery | DX: I70.235 Atherosclerosis of native arteries of right leg with ulceration of other part of foot (principal); E11.621 Type 2 diabetes mellitus with foot ulcer; L97.514 Non-pressure chronic ulcer of other part of right foot with necrosis of bone; E11.69 Type 2 diabetes mellitus with other specified complication; M86.671 Other chronic osteomyelitis, right ankle and foot; I10 Essential (primary) hypertension; Z86.73 Personal history of transient ischemic attack (TIA), and cerebral infarction without residual deficits; Z85.3 Personal history of malignant neoplasm of breast; Z90.710 Acquired absence of both cervix and uterus | CPT/HCPCS: 11042; 82962; 97605; G0277; 99183 ==

== ENCOUNTER 2017-05-25 10:16 | Outpatient (CLI) | payer MEDICARE | END 2017-05-25 10:17 | disposition home or self-care (01) | LOC: WOUND 10:16 | PROVIDERS: ATTEND Nurse Practitioner | DX: E11.621 Type 2 diabetes mellitus with foot ulcer (principal); I70.235 Atherosclerosis of native arteries of right leg with ulceration of other part of foot; L97.414 Non-pressure chronic ulcer of right heel and midfoot with necrosis of bone; E11.69 Type 2 diabetes mellitus with other specified complication; M86.671 Other chronic osteomyelitis, right ankle and foot; I10 Essential (primary) hypertension; Z85.3 Personal history of malignant neoplasm of breast; Z86.73 Personal history of transient ischemic attack (TIA), and cerebral infarction without residual deficits; Z90.710 Acquired absence of both cervix and uterus | CPT/HCPCS: 82962; G0277; 99183 ==

== ENCOUNTER 2017-05-30 10:03 | Outpatient (CLI) | payer MEDICARE ==
[2017-05-30] MEDS ORDERED: SILVER NITRATE TP ONE ×3 (13:39→16:06)
== END 2017-05-30 10:04 | disposition home or self-care (01) ==
LOC: WOUND 10:03
PROVIDERS: ATTEND Surgery
DX: I70.235 Atherosclerosis of native arteries of right leg with ulceration of other part of foot (principal); E11.621 Type 2 diabetes mellitus with foot ulcer; L97.414 Non-pressure chronic ulcer of right heel and midfoot with necrosis of bone; E11.69 Type 2 diabetes mellitus with other specified complication; M86.671 Other chronic osteomyelitis, right ankle and foot; I10 Essential (primary) hypertension; Z85.3 Personal history of malignant neoplasm of breast; Z86.73 Personal history of transient ischemic attack (TIA), and cerebral infarction without residual deficits
CPT/HCPCS: 11042; 82962; 97605; G0277; 99183

== ENCOUNTER 2017-05-31 10:27 | Outpatient (CLI) | payer MEDICARE | END 2017-05-31 10:28 | disposition home or self-care (01) | LOC: WOUND 10:27 | PROVIDERS: ATTEND Surgery | DX: I70.235 Atherosclerosis of native arteries of right leg with ulceration of other part of foot (principal); E11.621 Type 2 diabetes mellitus with foot ulcer; L97.414 Non-pressure chronic ulcer of right heel and midfoot with necrosis of bone; E11.69 Type 2 diabetes mellitus with other specified complication; M86.671 Other chronic osteomyelitis, right ankle and foot; I10 Essential (primary) hypertension; Z85.3 Personal history of malignant neoplasm of breast; Z86.73 Personal history of transient ischemic attack (TIA), and cerebral infarction without residual deficits; Z90.710 Acquired absence of both cervix and uterus | CPT/HCPCS: 82962; G0277; 99183 ==

== ENCOUNTER 2017-06-01 10:16 | Outpatient (CLI) | payer MEDICARE | END 2017-06-01 10:17 | disposition home or self-care (01) | LOC: WOUND 10:16 | PROVIDERS: ATTEND Nurse Practitioner | DX: I70.235 Atherosclerosis of native arteries of right leg with ulceration of other part of foot (principal); E11.621 Type 2 diabetes mellitus with foot ulcer; L97.514 Non-pressure chronic ulcer of other part of right foot with necrosis of bone; E11.69 Type 2 diabetes mellitus with other specified complication; M86.671 Other chronic osteomyelitis, right ankle and foot; L97.414 Non-pressure chronic ulcer of right heel and midfoot with necrosis of bone; I10 Essential (primary) hypertension; Z85.3 Personal history of malignant neoplasm of breast; Z86.73 Personal history of transient ischemic attack (TIA), and cerebral infarction without residual deficits; Z90.710 Acquired absence of both cervix and uterus | CPT/HCPCS: 82962; G0277; 99183 ==

== ENCOUNTER 2017-06-02 10:15 | Outpatient (CLI) | payer MEDICARE | END 2017-06-02 10:16 | disposition home or self-care (01) | LOC: WOUND 10:15 | PROVIDERS: ATTEND Podiatrist | DX: I70.235 Atherosclerosis of native arteries of right leg with ulceration of other part of foot (principal); E11.621 Type 2 diabetes mellitus with foot ulcer; L97.414 Non-pressure chronic ulcer of right heel and midfoot with necrosis of bone; E11.69 Type 2 diabetes mellitus with other specified complication; M86.671 Other chronic osteomyelitis, right ankle and foot; I10 Essential (primary) hypertension; Z85.3 Personal history of malignant neoplasm of breast; Z86.73 Personal history of transient ischemic attack (TIA), and cerebral infarction without residual deficits; Z90.710 Acquired absence of both cervix and uterus | CPT/HCPCS: 82962; G0277; 99183 ==

== ENCOUNTER 2017-06-06 10:24 | Outpatient (CLI) | payer MEDICARE | END 2017-06-06 10:25 | disposition home or self-care (01) | LOC: WOUND 10:24 | PROVIDERS: ATTEND Surgery | DX: I70.235 Atherosclerosis of native arteries of right leg with ulceration of other part of foot (principal); E11.621 Type 2 diabetes mellitus with foot ulcer; L97.414 Non-pressure chronic ulcer of right heel and midfoot with necrosis of bone; E11.69 Type 2 diabetes mellitus with other specified complication; M86.671 Other chronic osteomyelitis, right ankle and foot; Z90.710 Acquired absence of both cervix and uterus | CPT/HCPCS: 11042; 82962; 97605; G0277; 99183 ==

== ENCOUNTER 2017-06-07 10:04 | Outpatient (CLI) | payer MEDICARE | END 2017-06-07 10:05 | disposition home or self-care (01) | LOC: WOUND 10:04 | PROVIDERS: ATTEND Surgery | DX: I70.235 Atherosclerosis of native arteries of right leg with ulceration of other part of foot (principal); E11.621 Type 2 diabetes mellitus with foot ulcer; L97.414 Non-pressure chronic ulcer of right heel and midfoot with necrosis of bone; E11.69 Type 2 diabetes mellitus with other specified complication; M86.671 Other chronic osteomyelitis, right ankle and foot; I10 Essential (primary) hypertension; Z85.3 Personal history of malignant neoplasm of breast; Z86.73 Personal history of transient ischemic attack (TIA), and cerebral infarction without residual deficits; Z90.710 Acquired absence of both cervix and uterus | CPT/HCPCS: 82962; G0277; 99183 ==

== ENCOUNTER 2017-06-08 09:50 | Outpatient (CLI) | payer MEDICARE | END 2017-06-08 09:51 | disposition home or self-care (01) | LOC: WOUND 09:50 | PROVIDERS: ATTEND Nurse Practitioner | DX: E11.621 Type 2 diabetes mellitus with foot ulcer (principal); I70.235 Atherosclerosis of native arteries of right leg with ulceration of other part of foot; L97.414 Non-pressure chronic ulcer of right heel and midfoot with necrosis of bone; E11.69 Type 2 diabetes mellitus with other specified complication; M86.671 Other chronic osteomyelitis, right ankle and foot; I10 Essential (primary) hypertension; Z85.3 Personal history of malignant neoplasm of breast; Z86.73 Personal history of transient ischemic attack (TIA), and cerebral infarction without residual deficits; Z90.710 Acquired absence of both cervix and uterus | CPT/HCPCS: 82962; G0463; 99212 ==

== ENCOUNTER 2017-06-09 10:16 | Outpatient (CLI) | payer MEDICARE | END 2017-06-09 10:17 | disposition home or self-care (01) | LOC: WOUND 10:16 | PROVIDERS: ATTEND Surgery | DX: I70.235 Atherosclerosis of native arteries of right leg with ulceration of other part of foot (principal); E11.621 Type 2 diabetes mellitus with foot ulcer; L97.414 Non-pressure chronic ulcer of right heel and midfoot with necrosis of bone; E11.69 Type 2 diabetes mellitus with other specified complication; M86.671 Other chronic osteomyelitis, right ankle and foot; I10 Essential (primary) hypertension; Z85.3 Personal history of malignant neoplasm of breast; Z86.73 Personal history of transient ischemic attack (TIA), and cerebral infarction without residual deficits; Z90.710 Acquired absence of both cervix and uterus | CPT/HCPCS: 82962; G0277; 99183 ==

== ENCOUNTER 2017-06-13 10:00 | Outpatient (CLI) | payer MEDICARE | END 2017-06-13 10:01 | disposition home or self-care (01) | LOC: WOUND 10:00 | PROVIDERS: ATTEND Surgery | DX: I70.235 Atherosclerosis of native arteries of right leg with ulceration of other part of foot (principal); E11.621 Type 2 diabetes mellitus with foot ulcer; L97.414 Non-pressure chronic ulcer of right heel and midfoot with necrosis of bone; E11.69 Type 2 diabetes mellitus with other specified complication; M86.671 Other chronic osteomyelitis, right ankle and foot; I10 Essential (primary) hypertension; Z85.3 Personal history of malignant neoplasm of breast; Z86.73 Personal history of transient ischemic attack (TIA), and cerebral infarction without residual deficits; Z90.710 Acquired absence of both cervix and uterus | CPT/HCPCS: 11042; 82962; 97605; G0277; 99183 ==

== ENCOUNTER 2017-06-14 10:11 | Outpatient (CLI) | payer MEDICARE | END 2017-06-14 10:12 | disposition home or self-care (01) | LOC: WOUND 10:11 | PROVIDERS: ATTEND Surgery | DX: I70.235 Atherosclerosis of native arteries of right leg with ulceration of other part of foot (principal); E11.621 Type 2 diabetes mellitus with foot ulcer; L97.414 Non-pressure chronic ulcer of right heel and midfoot with necrosis of bone; E11.69 Type 2 diabetes mellitus with other specified complication; M86.671 Other chronic osteomyelitis, right ankle and foot; I10 Essential (primary) hypertension; Z85.3 Personal history of malignant neoplasm of breast; Z86.73 Personal history of transient ischemic attack (TIA), and cerebral infarction without residual deficits; Z90.710 Acquired absence of both cervix and uterus | CPT/HCPCS: 82962; G0277; 99183 ==

== ENCOUNTER 2017-06-20 10:21 | Outpatient (CLI) | payer MEDICARE | END 2017-06-20 10:22 | disposition home or self-care (01) | LOC: EDBD → WOUND 10:21 | PROVIDERS: ATTEND Surgery | DX: E11.621 Type 2 diabetes mellitus with foot ulcer (principal); I70.235 Atherosclerosis of native arteries of right leg with ulceration of other part of foot; L97.414 Non-pressure chronic ulcer of right heel and midfoot with necrosis of bone; E11.69 Type 2 diabetes mellitus with other specified complication; M86.671 Other chronic osteomyelitis, right ankle and foot; M87.38 Other secondary osteonecrosis, other site; I10 Essential (primary) hypertension; Z85.3 Personal history of malignant neoplasm of breast; Z86.73 Personal history of transient ischemic attack (TIA), and cerebral infarction without residual deficits; Z90.710 Acquired absence of both cervix and uterus; Y63.2 Overdose of radiation given during therapy; Y78.1 Therapeutic (nonsurgical) and rehabilitative radiological devices associated with adverse incidents | CPT/HCPCS: 11042; 82962; 97605; G0277; 99183 ==

== ENCOUNTER 2017-06-26 10:04 | Outpatient (CLI) | payer MEDICARE | END 2017-06-26 10:05 | disposition home or self-care (01) | LOC: WOUND 10:04 | PROVIDERS: ATTEND Obstetrics & Gynecology Gynecologic Oncology | DX: E11.621 Type 2 diabetes mellitus with foot ulcer (principal); I70.235 Atherosclerosis of native arteries of right leg with ulceration of other part of foot; L97.414 Non-pressure chronic ulcer of right heel and midfoot with necrosis of bone; E11.69 Type 2 diabetes mellitus with other specified complication; M86.671 Other chronic osteomyelitis, right ankle and foot; M87.38 Other secondary osteonecrosis, other site; I10 Essential (primary) hypertension; Z85.3 Personal history of malignant neoplasm of breast; Z86.73 Personal history of transient ischemic attack (TIA), and cerebral infarction without residual deficits; Z90.710 Acquired absence of both cervix and uterus; Y63.2 Overdose of radiation given during therapy; Y78.1 Therapeutic (nonsurgical) and rehabilitative radiological devices associated with adverse incidents | CPT/HCPCS: 82962; G0277; 99183 ==

== ENCOUNTER 2017-06-27 10:32 | Outpatient (CLI) | payer MEDICARE | END 2017-06-27 10:33 | disposition home or self-care (01) | LOC: WOUND 10:32 | PROVIDERS: ATTEND Surgery | DX: E11.621 Type 2 diabetes mellitus with foot ulcer (principal); I70.235 Atherosclerosis of native arteries of right leg with ulceration of other part of foot; L97.414 Non-pressure chronic ulcer of right heel and midfoot with necrosis of bone; E11.69 Type 2 diabetes mellitus with other specified complication; M86.671 Other chronic osteomyelitis, right ankle and foot; M87.38 Other secondary osteonecrosis, other site; I10 Essential (primary) hypertension; Z85.3 Personal history of malignant neoplasm of breast; Z86.73 Personal history of transient ischemic attack (TIA), and cerebral infarction without residual deficits; Z90.710 Acquired absence of both cervix and uterus; Y63.2 Overdose of radiation given during therapy; Y78.1 Therapeutic (nonsurgical) and rehabilitative radiological devices associated with adverse incidents | CPT/HCPCS: 11042; 82962; 97605; G0277; 99183 ==

== ENCOUNTER 2017-06-28 10:22 | Outpatient (CLI) | payer MEDICARE | END 2017-06-28 10:23 | disposition home or self-care (01) | LOC: EDBD → WOUND 10:22 | PROVIDERS: ATTEND Surgery | DX: I70.235 Atherosclerosis of native arteries of right leg with ulceration of other part of foot (principal); E11.621 Type 2 diabetes mellitus with foot ulcer; L97.414 Non-pressure chronic ulcer of right heel and midfoot with necrosis of bone; E11.69 Type 2 diabetes mellitus with other specified complication; M86.671 Other chronic osteomyelitis, right ankle and foot; I10 Essential (primary) hypertension; Z90.710 Acquired absence of both cervix and uterus; Z86.73 Personal history of transient ischemic attack (TIA), and cerebral infarction without residual deficits; Z85.3 Personal history of malignant neoplasm of breast | CPT/HCPCS: 82962; G0277; 99183 ==

== ENCOUNTER 2017-07-11 10:20 | Outpatient (CLI) | payer MEDICARE | END 2017-07-11 10:21 | disposition home or self-care (01) | LOC: WOUND 10:20 | PROVIDERS: ATTEND Surgery | DX: I70.235 Atherosclerosis of native arteries of right leg with ulceration of other part of foot (principal); E11.621 Type 2 diabetes mellitus with foot ulcer; L97.414 Non-pressure chronic ulcer of right heel and midfoot with necrosis of bone; E11.69 Type 2 diabetes mellitus with other specified complication; M86.671 Other chronic osteomyelitis, right ankle and foot; I10 Essential (primary) hypertension; Z85.3 Personal history of malignant neoplasm of breast; Z86.73 Personal history of transient ischemic attack (TIA), and cerebral infarction without residual deficits; Z90.710 Acquired absence of both cervix and uterus | CPT/HCPCS: 11042; 82962; 97605; G0277; 99183 ==

== ENCOUNTER 2017-07-12 10:05 | Outpatient (CLI) | payer MEDICARE | END 2017-07-12 10:06 | disposition home or self-care (01) | LOC: WOUND 10:05 | PROVIDERS: ATTEND Surgery | DX: I70.235 Atherosclerosis of native arteries of right leg with ulceration of other part of foot (principal); L97.414 Non-pressure chronic ulcer of right heel and midfoot with necrosis of bone; E11.69 Type 2 diabetes mellitus with other specified complication; M86.671 Other chronic osteomyelitis, right ankle and foot; I10 Essential (primary) hypertension; Z85.3 Personal history of malignant neoplasm of breast; Z86.73 Personal history of transient ischemic attack (TIA), and cerebral infarction without residual deficits; Z90.710 Acquired absence of both cervix and uterus | CPT/HCPCS: 82962; G0277; 99183 ==

== ENCOUNTER 2017-07-13 09:35 | Outpatient (CLI) | payer MEDICARE | END 2017-07-13 09:36 | disposition home or self-care (01) | LOC: WOUND 09:35 | PROVIDERS: ATTEND Surgery | DX: I70.235 Atherosclerosis of native arteries of right leg with ulceration of other part of foot (principal); L97.414 Non-pressure chronic ulcer of right heel and midfoot with necrosis of bone; E11.69 Type 2 diabetes mellitus with other specified complication; M86.671 Other chronic osteomyelitis, right ankle and foot; I10 Essential (primary) hypertension; Z85.3 Personal history of malignant neoplasm of breast; Z86.73 Personal history of transient ischemic attack (TIA), and cerebral infarction without residual deficits; Z90.710 Acquired absence of both cervix and uterus | CPT/HCPCS: 82962; G0277; 99183 ==

== ENCOUNTER 2017-07-14 09:36 | Outpatient (CLI) | payer MEDICARE | END 2017-07-14 09:37 | disposition home or self-care (01) | LOC: WOUND 09:36 | PROVIDERS: ATTEND Surgery | DX: I70.235 Atherosclerosis of native arteries of right leg with ulceration of other part of foot (principal); L97.414 Non-pressure chronic ulcer of right heel and midfoot with necrosis of bone; E11.69 Type 2 diabetes mellitus with other specified complication; M86.671 Other chronic osteomyelitis, right ankle and foot; I10 Essential (primary) hypertension; Z85.3 Personal history of malignant neoplasm of breast; Z86.73 Personal history of transient ischemic attack (TIA), and cerebral infarction without residual deficits; Z90.710 Acquired absence of both cervix and uterus | CPT/HCPCS: 82962; G0277; 99183 ==

== ENCOUNTER 2017-07-24 10:14 | Outpatient (CLI) | payer MEDICARE | END 2017-07-24 10:15 | disposition home or self-care (01) | LOC: WOUND 10:14 | PROVIDERS: ATTEND Surgery | DX: I70.235 Atherosclerosis of native arteries of right leg with ulceration of other part of foot (principal); E11.621 Type 2 diabetes mellitus with foot ulcer; L97.414 Non-pressure chronic ulcer of right heel and midfoot with necrosis of bone; E11.69 Type 2 diabetes mellitus with other specified complication; M86.671 Other chronic osteomyelitis, right ankle and foot; I10 Essential (primary) hypertension; Z85.3 Personal history of malignant neoplasm of breast; Z86.73 Personal history of transient ischemic attack (TIA), and cerebral infarction without residual deficits; Z90.710 Acquired absence of both cervix and uterus | CPT/HCPCS: 82962; G0277; 99183 ==

== ENCOUNTER 2017-07-25 10:23 | Outpatient (CLI) | payer MEDICARE | END 2017-07-25 10:24 | disposition home or self-care (01) | LOC: WOUND 10:23 | PROVIDERS: ATTEND Surgery | DX: I70.235 Atherosclerosis of native arteries of right leg with ulceration of other part of foot (principal); E11.621 Type 2 diabetes mellitus with foot ulcer; L97.414 Non-pressure chronic ulcer of right heel and midfoot with necrosis of bone; E11.69 Type 2 diabetes mellitus with other specified complication; M86.671 Other chronic osteomyelitis, right ankle and foot; I10 Essential (primary) hypertension; Z85.3 Personal history of malignant neoplasm of breast; Z86.73 Personal history of transient ischemic attack (TIA), and cerebral infarction without residual deficits; Z90.710 Acquired absence of both cervix and uterus | CPT/HCPCS: 11042; 82962; 97605; G0277; 99183 ==

== ENCOUNTER 2017-07-26 09:52 | Outpatient (CLI) | payer MEDICARE | END 2017-07-26 09:53 | disposition home or self-care (01) | LOC: WOUND 09:52 | PROVIDERS: ATTEND Surgery | DX: I70.235 Atherosclerosis of native arteries of right leg with ulceration of other part of foot (principal); E11.621 Type 2 diabetes mellitus with foot ulcer; E11.69 Type 2 diabetes mellitus with other specified complication; M86.671 Other chronic osteomyelitis, right ankle and foot; L97.414 Non-pressure chronic ulcer of right heel and midfoot with necrosis of bone; I10 Essential (primary) hypertension; Z85.3 Personal history of malignant neoplasm of breast; Z86.73 Personal history of transient ischemic attack (TIA), and cerebral infarction without residual deficits; Z90.710 Acquired absence of both cervix and uterus | CPT/HCPCS: 82962; G0277; 99183 ==

== ENCOUNTER 2017-07-28 09:54 | Outpatient (CLI) | payer MEDICARE | END 2017-07-28 09:55 | disposition home or self-care (01) | LOC: WOUND 09:54 | PROVIDERS: ATTEND Surgery | DX: I70.235 Atherosclerosis of native arteries of right leg with ulceration of other part of foot (principal); E11.621 Type 2 diabetes mellitus with foot ulcer; L97.414 Non-pressure chronic ulcer of right heel and midfoot with necrosis of bone; E11.69 Type 2 diabetes mellitus with other specified complication; M86.671 Other chronic osteomyelitis, right ankle and foot; I10 Essential (primary) hypertension; Z85.3 Personal history of malignant neoplasm of breast; Z86.73 Personal history of transient ischemic attack (TIA), and cerebral infarction without residual deficits; Z90.710 Acquired absence of both cervix and uterus | CPT/HCPCS: 82962; G0277; 99183 ==

== ENCOUNTER 2017-07-31 10:44 | Outpatient (CLI) | payer MEDICARE | END 2017-07-31 10:45 | disposition home or self-care (01) | LOC: WOUND 10:44 | PROVIDERS: ATTEND Surgery | DX: I70.235 Atherosclerosis of native arteries of right leg with ulceration of other part of foot (principal); L97.414 Non-pressure chronic ulcer of right heel and midfoot with necrosis of bone; E11.621 Type 2 diabetes mellitus with foot ulcer; E11.69 Type 2 diabetes mellitus with other specified complication; M86.671 Other chronic osteomyelitis, right ankle and foot; I10 Essential (primary) hypertension; Z85.3 Personal history of malignant neoplasm of breast; Z86.73 Personal history of transient ischemic attack (TIA), and cerebral infarction without residual deficits; Z90.710 Acquired absence of both cervix and uterus | CPT/HCPCS: 82962; G0277; 99183 ==

== ENCOUNTER 2017-08-01 10:03 | Outpatient (CLI) | payer MEDICARE | END 2017-08-01 10:04 | disposition home or self-care (01) | LOC: WOUND 10:03 | PROVIDERS: ATTEND Surgery | DX: I70.235 Atherosclerosis of native arteries of right leg with ulceration of other part of foot (principal); E11.621 Type 2 diabetes mellitus with foot ulcer; L97.414 Non-pressure chronic ulcer of right heel and midfoot with necrosis of bone; E11.69 Type 2 diabetes mellitus with other specified complication; M86.671 Other chronic osteomyelitis, right ankle and foot; I10 Essential (primary) hypertension; Z85.3 Personal history of malignant neoplasm of breast; Z86.73 Personal history of transient ischemic attack (TIA), and cerebral infarction without residual deficits; Z90.710 Acquired absence of both cervix and uterus | CPT/HCPCS: 11042; 82962; G0277; 99183 ==

== ENCOUNTER 2017-08-02 10:34 | Outpatient (CLI) | payer MEDICARE ==
[~2017-08-02 10:34] MED LIST changes: +SILVER NITRATE TP ONE; -XYLOCAINE TOPICAL 4% TP ONE
== END 2017-08-02 10:35 | disposition home or self-care (01) ==
LOC: WOUND 10:34
PROVIDERS: ATTEND Surgery
DX: E11.621 Type 2 diabetes mellitus with foot ulcer (principal); I70.235 Atherosclerosis of native arteries of right leg with ulceration of other part of foot; L97.414 Non-pressure chronic ulcer of right heel and midfoot with necrosis of bone; E11.69 Type 2 diabetes mellitus with other specified complication; M86.671 Other chronic osteomyelitis, right ankle and foot; I10 Essential (primary) hypertension; Z85.3 Personal history of malignant neoplasm of breast; Z86.73 Personal history of transient ischemic attack (TIA), and cerebral infarction without residual deficits; Z90.710 Acquired absence of both cervix and uterus
CPT/HCPCS: 82962; G0277; 99183

== ENCOUNTER 2017-08-03 10:28 | Outpatient (CLI) | payer MEDICARE | END 2017-08-03 10:29 | disposition home or self-care (01) | LOC: WOUND 10:28 | PROVIDERS: ATTEND Surgery | DX: I70.235 Atherosclerosis of native arteries of right leg with ulceration of other part of foot (principal); E11.621 Type 2 diabetes mellitus with foot ulcer; L97.414 Non-pressure chronic ulcer of right heel and midfoot with necrosis of bone; E11.69 Type 2 diabetes mellitus with other specified complication; M86.671 Other chronic osteomyelitis, right ankle and foot; I10 Essential (primary) hypertension; Z85.3 Personal history of malignant neoplasm of breast; Z86.73 Personal history of transient ischemic attack (TIA), and cerebral infarction without residual deficits; Z90.710 Acquired absence of both cervix and uterus | CPT/HCPCS: 82962; G0277; 99183 ==

== ENCOUNTER 2017-08-04 10:32 | Outpatient (CLI) | payer MEDICARE | END 2017-08-04 10:33 | disposition home or self-care (01) | LOC: WOUND 10:32 | PROVIDERS: ATTEND Surgery | DX: I70.235 Atherosclerosis of native arteries of right leg with ulceration of other part of foot (principal); E11.621 Type 2 diabetes mellitus with foot ulcer; L97.414 Non-pressure chronic ulcer of right heel and midfoot with necrosis of bone; E11.69 Type 2 diabetes mellitus with other specified complication; M86.671 Other chronic osteomyelitis, right ankle and foot; I10 Essential (primary) hypertension; Z85.3 Personal history of malignant neoplasm of breast; Z86.73 Personal history of transient ischemic attack (TIA), and cerebral infarction without residual deficits; Z90.710 Acquired absence of both cervix and uterus | CPT/HCPCS: 82962; G0277; 99183 ==

== ENCOUNTER 2017-08-15 10:33 | Outpatient (CLI) | payer MEDICARE | END 2017-08-15 10:34 | disposition home or self-care (01) | LOC: WOUND 10:33 | PROVIDERS: ATTEND Surgery | DX: E11.621 Type 2 diabetes mellitus with foot ulcer (principal); L97.411 Non-pressure chronic ulcer of right heel and midfoot limited to breakdown of skin; I10 Essential (primary) hypertension; Z85.3 Personal history of malignant neoplasm of breast; Z86.73 Personal history of transient ischemic attack (TIA), and cerebral infarction without residual deficits; Z90.710 Acquired absence of both cervix and uterus ==

== ENCOUNTER 2017-10-05 10:46 | Outpatient (CLI) | payer MEDICARE ==
[2017-10-05] MEDS ORDERED: XYLOCAINE TOPICAL 4% TP ONE (11:07)
== END 2017-10-05 10:47 | disposition home or self-care (01) ==
LOC: WOUND 10:46
PROVIDERS: ATTEND Surgery
DX: E11.621 Type 2 diabetes mellitus with foot ulcer (principal); I70.235 Atherosclerosis of native arteries of right leg with ulceration of other part of foot; L97.411 Non-pressure chronic ulcer of right heel and midfoot limited to breakdown of skin; E11.622 Type 2 diabetes mellitus with other skin ulcer; L97.821 Non-pressure chronic ulcer of other part of left lower leg limited to breakdown of skin; L97.811 Non-pressure chronic ulcer of other part of right lower leg limited to breakdown of skin; E11.69 Type 2 diabetes mellitus with other specified complication; M86.671 Other chronic osteomyelitis, right ankle and foot; I10 Essential (primary) hypertension; M10.9 Gout, unspecified; Z85.3 Personal history of malignant neoplasm of breast; Z86.73 Personal history of transient ischemic attack (TIA), and cerebral infarction without residual deficits; Z90.710 Acquired absence of both cervix and uterus

== ENCOUNTER 2018-01-23 09:57 | Outpatient (CLI) | payer MEDICARE ==
[2018-01-23] MEDS ORDERED: XYLOCAINE TOPICAL 4% TP ONE (10:30)
[2018-01-23] MEDS ORDERED: AD OINTMENT TP PRN (12:00)
== END 2018-01-23 09:58 | disposition home or self-care (01) ==
LOC: WOUND 09:57
PROVIDERS: ATTEND Surgery
DX: E11.621 Type 2 diabetes mellitus with foot ulcer (principal); L97.411 Non-pressure chronic ulcer of right heel and midfoot limited to breakdown of skin; E11.69 Type 2 diabetes mellitus with other specified complication; M86.671 Other chronic osteomyelitis, right ankle and foot; I10 Essential (primary) hypertension; M10.9 Gout, unspecified; Z85.3 Personal history of malignant neoplasm of breast; Z86.73 Personal history of transient ischemic attack (TIA), and cerebral infarction without residual deficits; Z90.710 Acquired absence of both cervix and uterus
CPT/HCPCS: A6250